=== PATIENT | female | born 1950 | race Two or more races ===

== ENCOUNTER 2023-09-26 09:25 | Outpatient (REF) | payer OTHER, SELFPAY ==
[2023-09-26 12:21] LABS: Vitamin D 25-OH Total 25.1 ng/mL (>30)
== END 2023-09-26 09:26 | disposition home or self-care (01) ==
LOC: HO.HHCL 09:25
PROVIDERS: Visit Provider Internal Medicine
DX: I10 Essential (primary) hypertension (principal)
CPT/HCPCS: 36415; 82306

== ENCOUNTER 2023-10-19 10:30 | Outpatient (REF) | payer OTHER, SELFPAY ==
--- NOTE | ~2023-10-19 | US_ITS ---
EXAMINATION: US THYROID CLINICAL INFORMATION: Enlarged thyroid. COMPARISON: None available. TECHNIQUE: Linear transducer grayscale and color Doppler examination with attention to the region of the thyroid. FINDINGS: SIZE: Measurements of the thyroid lobes and nodules are given in sagittal, anteroposterior and transverse dimensions respectively. Right Thyroid Lobe: 5.3 x 2.4 x 1.8 cm, volume 12.0 mL. Parenchyma: The gland echotexture is homogeneous. Thyroid vascularity is normal. Left Thyroid Lobe: 4.8 x 1.4 x 2.2 cm, volume 7.5 mL. Parenchyma: The gland echotexture is homogeneous. Thyroid vascularity is normal. Isthmus: 0.4 cm in maximum AP dimension. Estimated total number of nodules greater than or equal to 1 cm: 2. Cooler Operator nodules are described as follows: 1. Location: Right superior. Size: 0.6 x 0.5 x 0.3 cm, volume 0.05 mL. Nodule characteristics: Composition: Mixed cystic and solid (1). Echogenicity: Hypoechoic (2). Shape: Not taller than wide (0). Margins: Ill-defined (0). Echogenic Foci: None (0). ACR TI-RADS total points: 3 ACR TI-RADS category: 3 2. Location: Right inferior. Size: 1.0 x 0.8 x 0.7 cm, volume 0.3 mL. Nodule characteristics: Composition: Solid (2). Echogenicity: Hypoechoic (2). Shape: Not taller than wide (0). Margins: Ill-defined (0). Echogenic Foci: None (0). ACR TI-RADS total points: 4 ACR TI-RADS category: 4 3. Location: Right mid. Size: 1.0 x 1.0 x 0.8 cm, volume 0.4 mL. Nodule characteristics: Composition: Solid (2). Echogenicity: Isoechoic (1). Shape: Not taller than wide (0). Margins: Ill-defined (0). Echogenic Foci: None (0). ACR TI-RADS total points: 3 ACR TI-RADS category: 3 4. Location: Left mid. Size: 0.6 x 0.5 x 0.3 cm, volume 0.04 mL. Nodule characteristics: Composition: Mixed cystic and solid (1). Echogenicity: Hypoechoic (2). Shape: Not taller than wide (0). Margins: Ill-defined (0). Echogenic Foci: None (0). ACR TI-RADS total points: 3 ACR TI-RADS category: 3 5. Location: Left inferior. Size: 0.5 x 0.6 x 0.4 cm, volume 0.06 mL. Nodule characteristics: Composition: Solid (2). Echogenicity: Isoechoic (1). Shape: Not taller than wide (0). Margins: Ill-defined (0). Echogenic Foci: None (0). ACR TI-RADS total points: 3 ACR TI-RADS category: 3 NODES: No lymphadenopathy is seen in the tissue surrounding the thyroid gland. US/US thyroid IMPRESSION: 1. Bilateral thyroid nodules are seen, as detailed. Recommend continued thyroid ultrasound surveillance. 2. There is an asymmetric mild goiter, right lobe greater than left. ACR TI-RADS RECOMMENDATION REFERENCE: Ultrasound-guided fine-needle aspiration, followup ultrasound, no further follow up. * TR1 (0 point) and TR2 (2 points): No FNA or follow up. * TR3 (3 points): FNA if more than or equal to 2.5 cm in maximum dimension, followup ultrasound in 1, 3 and 5 years if 1.5 to 2.4 cm in maximum dimension. * TR4 (4-6 points): FNA if more than or equal to 1.5 cm in maximum dimension, followup ultrasound in 1, 2, 3 and 5 years if 1 to 1.4 cm in maximum dimension. * TR5 (more than or equal to 7 points): FNA if more than or equal to 1 cm in maximum dimension, followup ultrasound every year for 5 years if 0.5 to 0.9 cm in maximum dimension. * TR3, TR4 or TR5 nodules that are below the size threshold for followup receive no follow up.
== END 2023-10-19 10:31 | disposition home or self-care (01) ==
LOC: HO.US 10:30
PROVIDERS: PCP Internal Medicine; Visit Provider Internal Medicine
DX: E04.9 Nontoxic goiter, unspecified (principal)
CPT/HCPCS: 76536

== ENCOUNTER 2023-11-04 11:38 | Outpatient (REF) | payer OTHER, SELFPAY ==
[2023-11-04 13:08] LABS: MANUAL DIFF FLAG NO
[2023-11-04 13:30] LABS: Basophils Percent Auto 0.7 % (0-2); Eosinophils Absolute Auto 0.2 X10*3/uL (0.0-0.4); Eosinophils Percent Auto 6.9 % (0-4); Hemoglobin 13.8 g/dl (12.0-16.0); Imm Gran Abs Auto 0.01 X10*3/uL (0.00-0.03); Imm Gran Pct Auto 0.3 % (0.0-0.4); Lymphocytes Absolute Auto 1.4 X10*3/uL (1.2-4.9); Lymphocytes Percent Auto 44.4 % (20-40); Mean Corpuscular HGB Conc 32.1 g/dl (31.0-35.0); Mean Corpuscular Hemoglobin 31.4 pg (27.0-33.0); Mean Corpuscular Volume 97.9 fL (80.0-98.0); Mean Platelet Volume 10.7 fL (9.4-12.3); Monocytes Absolute Auto 0.4 X10*3/uL (0.1-1.2); Monocytes Percent Auto 13.1 % (2-11); Neutrophils Absolute Auto 1.1 x10*3/uL (2.0-8.3); Neutrophils Percent Auto 34.6 % (45-73); Platelet Count 241 X10*3/uL (160-400); Red Blood Count 4.39 X10*6/uL (4.20-5.50); Red Cell Distribution Width 12.1 % (11.0-16.0); White Blood Count 3.1 X10*3/uL (4.8-10.8)
[2023-11-04 14:46] LABS: Alanine Aminotransferase 34 U/L (0-31); Albumin Level 4.5 g/dL (3.5-5.0); Alkaline Phosphatase 147 U/L (39-117); Anion Gap 11 (12-20); Aspartate Amino Transferase 33 U/L (5-31); Bilirubin Direct 0.2 mg/dL (0.0-0.5); Bilirubin Total 0.8 mg/dL (0.0-1.0); Blood Urea Nitrogen 15 mg/dL (9-16); Calcium 10.4 mg/dL (8.4-10.2); Carbon Dioxide 30 mmol/L (22-29); Chloride 105 mmol/L (96-108); Cholesterol 183 mg/dL (<200); Estimated Glomerular Filt Rate > 60; Glucose Random 93 mg/dL (60-115); HDL Cholesterol 58 mg/dL (>40); LDL Cholesterol Calculated 103 mg/dL (<100); Potassium 4.8 mmol/L (3.3-5.1); Sodium 141 mmol/L (135-145); Total Protein 7.6 g/dL (6.5-8.0); Triglycerides 111 mg/dL (<150)
== END 2023-11-04 11:39 | disposition home or self-care (01) ==
LOC: HO.HHCL 11:38
PROVIDERS: Visit Provider Internal Medicine
DX: I10 Essential (primary) hypertension (principal); L63.9 Alopecia areata, unspecified; E04.9 Nontoxic goiter, unspecified
CPT/HCPCS: 36415; 80048; 80061; 80076; 84443; 85025

== ENCOUNTER 2024-07-31 10:31 | Outpatient (REF) | payer OTHER, SELFPAY ==
--- NOTE | ~2024-07-31 | US_ITS ---
EXAMINATION: US THYROID CLINICAL INFORMATION: Nontoxic multinodular goiter. COMPARISON: Ultrasound soft tissue head/neck thyroid dated October 19, 2023. TECHNIQUE: Linear transducer grayscale and color Doppler examination with attention to the region of the thyroid. FINDINGS: SIZE: Measurements of the thyroid lobes and nodules are given in sagittal, anteroposterior and transverse dimensions respectively. Right Thyroid Lobe: 5.0 x 2.3 x 2.1 cm, volume 12.8 mL. Previously 5.3 x 2.4 x 1.8 cm, volume 12.0 mL. Parenchyma: The gland echotexture is homogeneous. Thyroid vascularity is normal. Left Thyroid Lobe: 4.5 x 1.6 x 2.0 cm, volume 7.5 mL. Previously 4.8 x 1.4 x 2.2 cm, volume 7.5 mL. Parenchyma: The gland echotexture is homogeneous. Thyroid vascularity is normal. Isthmus: 0.3 cm in maximum AP dimension. Previously 0.4 cm. Estimated total number of nodules greater than or equal to 1 cm: 0. Switcher nodules are described as follows: 1. Location: Right superior. Size: 0.6 x 0.3 x 0.5 cm, volume 0.1 mL. Previously: 0.6 x 0.5 x 0.3 cm, volume 0.04 mL. Nodule characteristics: Composition: Mixed cystic and solid (1). Echogenicity: Hypoechoic (2). Shape: Not taller than wide (0). Margins: Smooth (0). Echogenic Foci: None (0). ACR TI-RADS total points: 3 Previous: 3 ACR TI-RADS category: 3 Previous: 3 Significant change in size (>/= 20% in 2 dimensions and minimal increase of 2 mm or 50% or greater increase in volume): No Change in features: No Change in ACR TI-RADS risk category: No 2. Location: Right inferior. Size: 0.9 x 0.7 x 0.6 cm, volume 0.2 mL. Previously: 1.0 x 0.8 x 0.7 cm, volume 0.3 mL. (By my current measurements, this nodule was also taller than wide on the prior.) Nodule characteristics: Composition: Solid (2). Echogenicity: Hypoechoic (2). Shape: Taller than wide (3). Margins: Smooth (0). Echogenic Foci: None (0). ACR TI-RADS total points: 7 Previous: 7 ACR TI-RADS category: 5 Previous: 5 Significant change in size (>/= 20% in 2 dimensions and minimal increase of 2 mm or 50% or greater increase in volume): No Change in features: No Change in ACR TI-RADS risk category: No 3. Location: Right mid. Size: 0.8 x 0.7 x 0.7 cm, volume 0.2 mL. Previously: 1.0 x 1.0 x 0.8 cm, volume 0.4 mL. Nodule characteristics: This structure is felt more likely to represent heterogeneous but otherwise normal thyroid tissue rather than a true nodule. Composition: Solid (2). Echogenicity: Isoechoic (1). Shape: Not taller than wide (0). Margins: Ill-defined (0). Echogenic Foci: None (0). ACR TI-RADS total points: 3 Previous: 3 ACR TI-RADS category: 3 Previous: 3 Significant change in size (>/= 20% in 2 dimensions and minimal increase of 2 mm or 50% or greater increase in volume): No Change in features: No Change in ACR TI-RADS risk category: No 4. Location: Left mid. Size: 0.6 x 0.4 x 0.5 cm, volume 0.1 mL. Previously: 0.6 x 0.5 x 0.3 cm, volume 0.04 mL. Nodule characteristics: Composition: Mixed cystic and solid (1). Echogenicity: Hypoechoic (2). Shape: Not taller than wide (0). Margins: Ill-defined (0). Echogenic Foci: None (0). ACR TI-RADS total points: 3 Previous: 3 ACR TI-RADS category: 3 Previous: 3 Significant change in size (>/= 20% in 2 dimensions and minimal increase of 2 mm or 50% or greater increase in volume): No Change in features: No Change in ACR TI-RADS risk category: No 5. Location: Left inferior. Size: 0.5 x 0.6 x 0.4 cm, volume 0.06 mL. Previously: 0.5 x 0.6 x 0.4 cm, volume 0.06 mL. (This nodule was also hypoechoic on the prior.) Nodule characteristics: Composition: Solid/almost completely solid (2). Echogenicity: Hypoechoic (2). Shape: Not taller than wide (0). Margins: Smooth (0). Echogenic Foci: None (0). ACR TI-RADS total points: 4 Previous: 4 ACR TI-RADS category: 4 Previous: 4 Significant change in size (>/= 20% in 2 dimensions and minimal increase of 2 mm or 50% or greater increase in volume): No Change in features: No Change in ACR TI-RADS risk category: No NODES: No lymphadenopathy is seen in the tissue surrounding the thyroid gland. US/US thyroid IMPRESSION: Bilateral thyroid nodules as detailed above. Follow-up ultrasound in 1 year is indicated, per ACR recommendation, with particular attention to nodule #2. ACR TI-RADS RECOMMENDATION REFERENCE: Ultrasound-guided fine-needle aspiration, follow up ultrasound, no further followup. * TR1 (0 point) and TR2 (2 points): No FNA or followup * TR3 (3 points): FNA if more than or equal to 2.5 cm in maximum dimension, follow up ultrasound in 1, 3 and 5 years if 1.5 to 2.4 cm in maximum dimension. * TR4 (4-6 points): FNA if more than or equal to 1.5 cm in maximum dimension, follow up ultrasound in 1, 2, 3 and 5 years if 1 to 1.4 cm in maximum dimension. * TR5 (more than or equal to 7 points): FNA if more than or equal to 1 cm in maximum dimension, follow up ultrasound every year for 5 years if 0.5 to 0.9 cm in maximum dimension. * TR3, TR4 or TR5 nodules that are below the size threshold for follow up receive no followup. Electronically signed by: Jonathan Templeton MD 08/03/2024 10:05 AM [facility]
[2024-07-31 18:39] LABS: Gamma Glutamyl Transpeptidase 73 U/L (7-33)
[2024-08-04 14:59] LABS: Alkaline Phosphatase Bone 28.4 mcg/L (5.6-29.0)
== END 2024-07-31 10:32 | disposition home or self-care (01) ==
LOC: HO.US 10:31
PROVIDERS: PCP Internal Medicine; Visit Provider Internal Medicine Endocrinology, Diabetes & Metabolism
DX: R74.8 Abnormal levels of other serum enzymes (principal)
CPT/HCPCS: 36415; 76536; 82977; 84075

== ENCOUNTER 2024-07-31 11:45 | Outpatient (REF) | payer OTHER, SELFPAY | END 2024-07-31 11:46 | disposition home or self-care (01) | LOC: HO.LAB 11:45 | PROVIDERS: PCP Internal Medicine; Visit Provider Internal Medicine Endocrinology, Diabetes & Metabolism | DX: Z13.89 Encounter for screening for other disorder (principal) ==

== ENCOUNTER 2024-09-04 09:17 | Outpatient (AMB) | payer OTHER, SELFPAY ==
[2024-09-04 09:28] VITALS: BP 153/78; PULSE 71; BMI 24.0
--- NOTE | 2024-09-04 09:28 | MHC.OFFVIS ---
Vital Signs 09/04/24 09:28 Height 4 ft 11 in Weight 119 lb BMI 24.0 BP 153/78 H Blood Pressure Location Rt brachial Position Sitting Pulse 71 Intake Visit Reasons: Hemorrhoids Intake Note: Patient referred by pcp Dr. Boyce for external hemorrhoids. Reports she has tried HC 2.5% cr. Soaks in bathtub. Patient c/o: at times bleeding, difficulty when sitting. Seasonal Recruiter Required: Yes Seasonal Recruiter Name: Araceli TavaresChristine CON Accompanied by: spouse Alek Can Allergies No Known Allergies Allergy (Verified 09/04/24 09:30) HPI Comments Details: Patient was a longstanding history of symptomatic hemorrhoids. Over the last several months time, these have markedly increased. She complains of pain, swelling, occasional bleeding. Patient had colonoscopy roughly 6 years ago which she says was otherwise within normal limits. She is not noticed any change in the caliber of her stool. She is chronically constipated and does a variety of measures to try to combat this. Patient denies any anal receptive practice. Chart was reviewed and patient evaluated [facility] Medical History (Updated 09/04/24 @ 09:33 by CON Garcia) Uterine prolapse Social History (Updated 09/04/24 @ 09:34 by CON Garcia) Alcohol intake: current Alcohol intake frequency: holidays/special occasions only Patient Tobacco Use Status: Current everyday Tobacco user Cigarettes Per Day: 3 Physical Exam Vital Signs: Last Vital Signs Pulse 71 09/04/24 09:28 BP 153/78 H 09/04/24 09:28 BMI result Body Mass Index 24.0 Chest Other: Chest breath sounds bilaterally, HS 1 in 2 GI Other: Abdomen is soft, benign. Rectal exam demonstrates very significant internal and external hemorrhoids. These were quite large, edematous, and friable. Because of marked tenderness, rectal exam was deferred. Assessment & Plan Assessment & Plan (1) HTN (hypertension): Code(s): I10 - Essential (primary) hypertension Plan: Therapeutic options were reviewed with the patient included continue conservative therapy with stool softeners and avoiding constipation and topical agents or excision. Because of the chronicity and progression of her symptoms, she would like to undergo excision of these. Risks, benefits, and alternatives of hemorrhoidectomy reviewed with the patient and included but not limited to bleeding, infection, recurrence, numbness, pain, scarring, incontinence and the patient wished to proceed. She will be given a bowel prep day prior and will see me postprocedure in 2 weeks' time for follow-up. All questions answered. Arrangements were made for this Coding Level of Care Code New Pt Level 5 (10891) Diagnoses HTN (hypertension) I10
== END 2024-09-04 09:47 | disposition home or self-care (01) ==
PROVIDERS: PCP Internal Medicine; Referring Provider Internal Medicine; Visit Provider Surgery
DX: K64.8 Other hemorrhoids (principal)
CPT/HCPCS: 99204

== ENCOUNTER → 2024-09-04 09:17 | Outpatient (BNVA) | payer OTHER, SELFPAY | PROVIDERS: PCP Internal Medicine; Referring Provider Internal Medicine; Visit Provider Surgery | DX: I10 Essential (primary) hypertension (principal); K59.00 Constipation, unspecified; K64.4 Residual hemorrhoidal skin tags | CPT/HCPCS: 99202 ==

== ENCOUNTER 2024-09-06 10:04 | Outpatient (REF) | payer OTHER, SELFPAY ==
--- NOTE | ~2024-09-06 | MM_ITS ---
EXAMINATION: Dual-Energy X-ray Absorptiometry - Bone Density Study HISTORY: Estrogen deficiency TECHNIQUE: [employer] Dual energy absorptiometry (DEXA) of the lumbar spine, total left hip, and femoral neck was performed. COMPARISON: There are no prior studies for comparison. FINDINGS: The bone mineral density of the lumbar spine is 0.889 with a T-score of -2.6, and a Z-score of -0.5. The bone mineral density of the left total hip is 0.694 with a T-score of -2.5, and a Z-score of -0.5. The bone mineral density of the left femoral neck is 0.684 with a T-score of -2.5, and a Z-score of -0.4. MM/XR DEXA axial skeleton IMPRESSION: Based on bone mineral density, and according to World Health Organization (WHO) criteria, the diagnosis is consistent with osteoporosis. All bone density values are in grams per centimeter squared. At this facility, the least significant change in BMD with 95% confidence is 0.022 at the lumbar spine, 0.027 at the hip, and 0.023 at the distal 1/3 radius. Electronically signed by: Popeye Gomez MD 09/10/2024 09:39 AM [facility]
== END 2024-09-06 10:05 | disposition home or self-care (01) ==
LOC: HO.MAMMO 10:04
PROVIDERS: PCP Internal Medicine; Visit Provider Internal Medicine Endocrinology, Diabetes & Metabolism
DX: N95.9 Unspecified menopausal and perimenopausal disorder (principal)
CPT/HCPCS: 77080

== ENCOUNTER → 2024-09-06 10:30 | Outpatient (BNV) | payer OTHER, SELFPAY | PROVIDERS: PCP Internal Medicine; Visit Provider Radiology Diagnostic Radiology | DX: M81.0 Age-related osteoporosis without current pathological fracture (principal) | CPT/HCPCS: 77080 ==

== ENCOUNTER 2024-10-11 09:42 | Day surgery (SDC) | payer OTHER, SELFPAY ==
[2024-10-09 11:35] VITALS: BMI 24.0
--- NOTE | 2024-10-10 09:58 | MHC.SHP ---
Pre-Procedural Eval Section A - 24 Hr Update-Section A only Date of Service: 10/11/24 The patient is an INPATIENT: No Changes since office visit: No Cold of Flu in the past 2 weeks, No New Medical Problems, No Changes in Medication and No Patient answered all questions Section B - Complete if H&P > 30 days Chief Complaint: Unspecified hemorrhoids Allergies: Allergies Allergy/AdvReac Type Severity Reaction Status Date / Time No Known Allergies Allergy Verified 09/04/24 09:30 Review of Systems Sugical H&P ROS: Negative: Constitution, Cardiovascular, Respiratory, Neurological, Psychiatric, Hem-Onc, Allergic/Immunologic, Gastrointestinal, Genitourinary, Musculoskeletal, Integumentary, Endocrine and Eyes/Ears/Nose/Throat Exam Surgical H&P Exam: Normal: HEENT, Normal: Heart, Normal: Lungs, Normal: Extremities, Normal: Abdomen, Normal: Skin and Normal: Neurological Plan I have reviewed the history and physical and performed a pertinent physical examination on my patient. No changes have occurred unless specified. Time Spent With Patient Time: Total time managing care of this patient today ____ minutes.
--- NOTE | 2024-10-10 10:07 | P.CONAN_ITS ---
Documented by User: Lu Arthur NP 10/10/24 10:09 HPI - Anesthesia Eval Consult details Narrative: 74yo F for Hemorrhoidectomy PMFSH Past Medical History Medical History Encounter for screening mammogram for malignant neoplasm of breast Constipation Vitamin D deficiency Non-toxic multinodular goiter Elevated alkaline phosphatase level Colon cancer screening Peptic ulcer Hemorrhoids Enlarged thyroid Primary hypertension Alopecia areata Uterine prolapse Social History Social History Are you a primary director career services to a significant other at home: No Do you presently have visiting nurse or other home services: No Alcohol intake: current Alcohol intake frequency: holidays/special occasions only Patient Tobacco Use Status: Current everyday Tobacco user Tobacco use type: Cigarette Cigarettes Per Day: 3 Smoked in Last 30 Days: Yes Patient Interested in Nicotine Replacement: No Have you been hit, kicked, punched, or otherwise hurt by someone within the past year? If so, by whom?: No Are you DNR?: No Advance Directives: No Advance Directives Information Provided: Yes Recently lost weight without trying: No Nutrition Risks: No Nutritional Risk Meds Allergies Allergy/AdvReac Type Severity Reaction Status Date / Time No Known Allergies Allergy Verified 10/11/24 10:38 Active Medications: Current Medications Cefazolin Sodium/Dextrose (Ancef) 2 gm in 50 mls @ 100 mls/hr IV PREOP ONE Stop: 10/10/24 10:26 Home Medications ?Medication ?Instructions ?Recorded ?Confirmed ?Last Taken ?Type amlodipine 10 mg tablet 10 mg PO DAILY 09/04/24 10/11/24 10/11/24 History ammonium lactate 12 % topical cream 1 appl topical BID 09/04/24 10/11/24 Unknown History atorvastatin 40 mg tablet 40 mg PO DAILY 09/04/24 10/11/24 Unknown History betamethasone, augmented 0.05 % topical 09/04/24 09/04/24 Unknown History topical ointment cholecalciferol (vitamin D3) 50 50 mcg PO DAILY 09/04/24 10/11/24 Unknown History mcg (2,000 unit) capsule (Vitamin D3) docusate sodium 100 mg capsule 100 mg PO BID 09/04/24 10/11/24 Unknown History ergocalciferol (vitamin D2) 1,250 1,250 mcg PO QWEEK 09/04/24 10/11/24 Unknown History mcg (50,000 unit) capsule famotidine 20 mg tablet 20 mg PO BID 09/04/24 10/11/24 Unknown History hydrocortisone 2.5 % topical cream topical 09/04/24 09/04/24 Unknown History with perineal applicator triamcinolone acetonide 0.1 % topical 09/04/24 09/04/24 Unknown History topical ointment Exam Height,Weight and Vital Signs: Height 4 ft 11 in Weight 53.977 kg Assessment and Plan Assessment Anesthesia Assessment: Chart Reviewed Documented by User: Nilam Austin MD 10/11/24 10:57 [facility] Past Medical History Medical History Encounter for screening mammogram for malignant neoplasm of breast Constipation Vitamin D deficiency Non-toxic multinodular goiter Elevated alkaline phosphatase level Colon cancer screening Peptic ulcer Hemorrhoids Enlarged thyroid Primary hypertension Alopecia areata Uterine prolapse Surgical History History of Problems with Anesthesia: No Social History Social History Are you a primary director career services to a significant other at home: No Do you presently have visiting nurse or other home services: No Alcohol intake: current Alcohol intake frequency: holidays/special occasions only Patient Tobacco Use Status: Current everyday Tobacco user Tobacco use type: Cigarette Cigarettes Per Day: 3 Smoked in Last 30 Days: Yes Patient Interested in Nicotine Replacement: No Have you been hit, kicked, punched, or otherwise hurt by someone within the past year? If so, by whom?: No Are you DNR?: No Advance Directives: No Advance Directives Information Provided: Yes Recently lost weight without trying: No Nutrition Risks: No Nutritional Risk Meds Allergies Allergy/AdvReac Type Severity Reaction Status Date / Time No Known Allergies Allergy Verified 10/11/24 10:38 Home Medications ?Medication ?Instructions ?Recorded ?Confirmed ?Last Taken ?Type amlodipine 10 mg tablet 10 mg PO DAILY 09/04/24 10/11/24 10/11/24 History ammonium lactate 12 % topical cream 1 appl topical BID 09/04/24 10/11/24 Unknown History atorvastatin 40 mg tablet 40 mg PO DAILY 09/04/24 10/11/24 Unknown History betamethasone, augmented 0.05 % topical 09/04/24 09/04/24 Unknown History topical ointment cholecalciferol (vitamin D3) 50 50 mcg PO DAILY 09/04/24 10/11/24 Unknown History mcg (2,000 unit) capsule (Vitamin D3) docusate sodium 100 mg capsule 100 mg PO BID 09/04/24 10/11/24 Unknown History ergocalciferol (vitamin D2) 1,250 1,250 mcg PO QWEEK 09/04/24 10/11/24 Unknown History mcg (50,000 unit) capsule famotidine 20 mg tablet 20 mg PO BID 09/04/24 10/11/24 Unknown History hydrocortisone 2.5 % topical cream topical 09/04/24 09/04/24 Unknown History with perineal applicator triamcinolone acetonide 0.1 % topical 09/04/24 09/04/24 Unknown History topical ointment Exam Airway Mallampati Class: II TM Dist: >3cm Neck ROM: Limited Loose/Missing/Broken Teeth: No Heart: RRR Lungs: CTA Assessment and Plan Assessment Anesthesia Assessment: Anesthesia Plan Discussed Final Anesthetic Review History of Problems with Anesthesia: No NPO: Yes ASA Class: II Final Preanesthetic Review: Meds/Allgs Chart Reviewed, Consent Obtained/Reviewed and Anes Risks/Benef Reviewed Patient Risk: Low Procedure Risk: Low Anesthetic Plan Anesthetic Plan: GA Disposition: Standard PACU
[2024-10-11] MEDS: Lactated Ringers 1,000 ML 100 ML IVCONT (10:03)
[2024-10-11 10:11] VITALS: BP 138/88; PULSE 71; RESP 18; TEMP 36.7; O2SAT 99
--- OUTSIDE RECORDS SUMMARY | 2024-10-11 10:14 | XMS_ITS | Encounter Summary ---
Author Organization [employer] Address [address] [place] [address] Care Team Providers Care Meat Pickler Name Role Phone Lalita Owens MD Primary Care Provide r Encounter Details Date Type Department Care Team (Latest Contact Info) Description 10/02/2024 Travel Social History Tobacco Use Types Packs/Day Years Used Date Smoking Tobacco: Every Day Cigarettes Passive Smoke Exposure: Current Smokeless Tobacco: Never Comments:2 cig a day Alcohol Use Standard Drinks/Week Comments Not Currently 0 (1 standard drink = 0.6 oz pur e alcohol) Depression Answer Date Recorded Patient Health Questionnaire-9 Score 7 11/01/2023 Patient Health Questionnaire-9 Score 7 11/01/2023 Last PHQ-9: Questionnaire Data Not on file 0 11/01/2023 Housing Stability Answer Date Recorded What is your housing situation today? I have roelandres kirby 10/25/[address] you li ve. Do you have problems with any of the following? None of the above 10/25/2023 Food Insecurity Answer Date Recorded Within the past 12 months, y ou worried that your food would run out before you got money to buy more: Never True 10/25/2023 Within the past 12 months,th e food you bought just didn't last and you didn't have enough money to get more: Never True Transportation Answer Date Recorded In the past 12 months, has l ack of transportation kept you from medical appts, meetings, work or from getting things needed for daily living? Yes, it has kept me from medical appointments or getting medications.;Yes, it has kept me from non-medical meetings, work, or getting things that I need 10/25/2023 Utilities Answer Date Recorded In the past 12 months, has t he electric, gas, oil or water company threatened to shut off services in your home? No 10/25/2023 Depression Answer Date Recorded Patient Health Questionnaire-2 Score 2 11/01/2023 Comments Unknown Sex and Gender Information Value Date Recorded Sex Assigned at Female 08/04/2023 10:55 AM EST Legal Sex Female 10:53 AM EST Gender Identity Female 08/04/2023 10:55 AM EST Sexual Orientation Straight 08/04/2023 10 :55 AM EST documented as of this encounter Plan of Treatment Upcoming Encounters Date Type Department Care Team (Late st Contact Info) Description 10/30/2024 1:30 PM EST Clinical Support [facility] [address] [place] [id number] [place] [address] 11/23/2024 9:30 AM EDT Office Visit [facility] [address] [place] [address] Lalita Owens MD [address] [place] [address] documented as of this encounter Visit Diagnoses Not on filedocumented in this encounter Additional Health Concerns Assessment Noted Time PHQ-9 Depression Total Score: 7 11/01/19 10:28 AM EST documented as of this encounter Care Teams Meat Pickler Relationship Specialty Start Date End Date Lalita Owens MD [address] [place] [id number] PCP - General Internal Medicine 09/23/23 documented as of this encounter"
--- OUTSIDE RECORDS SUMMARY | 2024-10-11 10:14 | XMS_ITS | Encounter Summary ---
Author Organization [employer] Address [address] [place] [address] [facility] [place] [address] Care Team Providers Care Electrical Prospector Name Role Phone Lalita Owens MD Primary Care Provide r Reason for Visit * Consultation (Routine) - Authorized Specialty Diagnoses / Procedures Referred By Stephanie friedman Referred To Contact Nutrition Diagnoses Primary hypertension Body mass index (BMI) 23.0-23.9, adult Lalita Owens MD [address] [place] [address] Phone: tel: fax: Referral ID Status Reason Start Date Expiration Date Visits Requested Visits Authorized [id number] Authorized Specialty Services Required 4 08/10/2025 1 1 Encounter Details Date Type Department Care Team ([facility] st Contact Info) Description 10/02/2024 1:00 PM EST Nutrition [facility] DIABETES/NUTRITION [address] [place] [address] [place] [address] Primary hypertension; Body mass index (BMI) 23.0-23.9, adult Social History Tobacco Use Types Packs/Day Years [...] is your housing situation today? I have roel kirby 10/25/[address] you [...] AM EST documented as of this encounter Last Filed Vital Signs Vital Sign Reading Time Taken Comments Blood Pressure - - Pulse - - Temperature - - Respiratory Rate - - Oxygen Saturation - - Inhaled Oxygen Concentration - - Weight 52.9 kg (116 lb 9.6 oz) 10/04/2024 8:58 A M EST Height 149.9 cm (4' 11 ) 10/04/2024 8:58 AM EST Body Mass Index 23.55 10/04/2024 8:58 AM EST documented in this encounter Progress Notes * Diana Brothers, RD - 10/02/2024 1:00 PM EST In Person Visit Medical Diagnosis: I10 Primary hypertension Z68.23 Body mass index (BMI) 23.0-23.9, adult Anthropometrics: Ht:4' 11 (1.499 m), Wt:116 lb 9.6 oz (52.9 kg), BMI: Body mass index is 23.55 kg/m??. Assessment: Patient (Pt) accepted nutrition education assessment appointment with RD. RD took 24 hour recall/ typical daily intake from Pt. Intake revealed Pt's diet is very high in refine carbohydrates, fried foods, junk foods, salty foods, and low in: protein, healthy fats, fiber, sources of calcium, fresh and cooked vegetables, fruit and whole grains. Today, Pt only did the first half of First appointment. Once the second half of First appointment is finished, RD will fill in nutrition diagnosis, nutrition Intervention, goals, Tailored made meal plan, monitoring and evaluation will be put into Pt's chart here. Thus, all is to be followed by Pt with their agreement. The second half of First nutrition education assessment appointment is scheduled in the first week of October 2024. Until then, RD made some suggestions to Pt and Pt agreed to make these changes. They are: Use real butter instead of margarine Have bread instead of crackers Have beef once per week (RD showed the size/ amount. RD also expressed that this is not the O.K. togo to fast food places. RD suggested to by hamburger and cook it at home.) Food Allergies: Peanuts and any foods made with peanuts Exercise: Pt walk regularly, daily- 2 to 5 miles a day. Food Intolerance: Didn't say Food Preferences: Breakfast sausages, spiced ham, Bahamian cheese, mayonnaise, lettuce, tomato, Portuguese bread, potatochips, Cheese Doodles, yellow and white rice, sweet plantain, chicken and chicken wings, beans, pork, spaghetti, turkey, tuna, noodles, crackers, orange juice, apple juice, perfecto gerber, herb teas, brown sugar, margarine, kiwi, strawberries, gelacio, grapes, watermelon Food Dislikes: Soft eggs Frequency of Eating Out/ Restaurant: Not a norm Who Cooks?: Patient and partner How much caffeine?: coffee 1-2 cups /day How much sugary beverages?: Juice, 1-2 cups/ day Diet History: Breakfast: Sausage: 4-5 Cracker:6-8 Margarine: 2 tablespoons Coffee: 3/4 cup Canned milk: 1 oz. Snack: none Lunch: Potato chips: snack size bag Water: 1+ cups Or Juice: 3/4 cup Snack: None Water: 1/2 cup Dinner: Rice: 1/2 cup Sweet plantains: 1/3 cup Fried chicken wings: 3-4 Juice: 3/4 cup Snack: Lay's potato chips: snack size bag Maybe: water: 1 cup or juice Nutrition Diagnosis: 1st half of First appointment was done today. When the 2nd half of First appointment is finished/ done, this area will be filled in. Nutrition Intervention: 1st half of First appointment was done today. When the 2nd half of First appointment is finished/ done, this area will be filled in. Monitoring and Evaluation: 1st half of First appointment was done today. When the 2nd half of First appointment is finished/ done, this area will be filled in. Provider: Diana Brothers RD, [place] documented in this encounter Plan of Treatment Upcoming Encounters Date Type Department Care Team (Late st Contact Info) Description 10/30/2024 1:30 PM EST Clinical Support [facility] DIABETES/NUTRITION [address] [place] [id number] [place] [address] 11/23/2024 9:30 AM EDT Office Visit [facility] MEDICINE [address] [place] [address] Lalita Owens MD [address] [place] [address] documented as of this encounter Visit Diagnoses Diagnosis Primary hypertension Unspecified essential hypertension Body mass index (BMI) 23.0-23.9, adult documented in this encounter Additional Health Concerns Assessment Noted Time PHQ-9 Depression Total Score: 7 11/01/19 24 10:28 AM EST documented as of this encounter Care Teams Electrical Prospector Relationship Specialty Start Date End Date Lalita Owens MD [address] [place] [id number] PCP - General Internal Medicine 09/23/23 documented as of this encounter
--- OUTSIDE RECORDS SUMMARY | 2024-10-11 10:14 | XMS_ITS | Clinical Summary ---
Author Organization [employer] Address [address] [place] [address] 7 [place] [address] Care Team Providers Care Typesetter Perforator Operator Name Role Phone Lalita Owens MD Primary Care Provide r Allergies Active Allergy Reactions Criticality Noted Date Comments Peanut-Containing Drug Products 08/30 Penicillins 11/01/2023 Medications ergocalciferol (Vitamin D2) 1.25 MG (25532 UT) capsuleIndicatio ns:Primary hypertension TAKE 1 CAPSULE BY MOUTH ONCE A WEEK 4 capsule 2 01/09/20 24 Active betamethasone, augmented, (Diprolene) 0.05 % ointmentIndicati ons:Alopecia areata Apply topically 2 times daily. 15 g 02/17/20 24 Active lidocaine (Lidoderm) 5 % patchIndications :Musculoskeletal chest pain Apply 1 patch topically Once per day. Remove & discard patch within 12 hours or as directed by MD. 30 patch 1 05/02/20 24 Active dextran 70-hypromellose (artificial tears) 0.1-0.3 % ophthalmic solutionIndicati ons:Dry eyes, bilateral Administer 1 drop into both eyes if needed in the morning, at noon, and at bedtime for dry eyes. 15 mL 6 07/09/20 24 025 Active hydrocortisone (Anusol-HC) 2.5 % rectal creamIndications :Hemorrhoids, unspecified hemorrhoid type INSERT RECTALLY TWICE DAILY DIRECTED 30 g 1 07/11/20 24 Active ammonium lactate (Amlactin) 12 % creamIndications :Alopecia areata APPLY TOPICALLY TO THE AFFECTED AREA(S) EVERY DAY NEEDED FOR DRY SKIN 385 g 1 07/17/20 24 Active hydrocortisone (Anusol-HC) 2.5 % rectal creamIndications :Hemorrhoids, unspecified hemorrhoid type Insert into the rectum 2 times daily. 28 g 3 08/10/20 24 Active famotidine (Pepcid) 20 MG tabletIndication s:Peptic ulcer TAKE 1 TABLET BY MOUTH TWICE DAILY 60 tablet 10/09/19 25 Active atorvastatin (Lipitor) 40 MG tabletIndication s:Primary hypertension TAKE 1 TABLET BY MOUTH EVERY DAY IN THE MORNING 30 tablet 10/09/19 25 Active amLODIPine (Norvasc) 10 MG tabletIndication s:Primary hypertension TAKE 1 TABLET BY MOUTH EVERY DAY IN THE MORNING 30 tablet 10/09/19 25 Active triamcinolone (Kenalog) 0.1 % ointmentIndicati ons:Hand eczema APPLY TOPICALLY TO THE AFFECTED AREA(S) TWICE DAILY DIRECTED 30 g 11 10/09/19 25 Active atorvastatin (Lipitor) 40 MG tabletIndication s:Primary hypertension Take 1 tablet (40 mg) by mouth in the morning. 30 tablet 09/23/19 24 025 Discontinued famotidine (Pepcid) 20 MG tabletIndication s:Peptic ulcer Take 1 tablet (20 mg) by mouth 2 times daily. 60 tablet 09/23/19 24 025 Discontinued amLODIPine (Norvasc) 10 MG tabletIndication s:Primary hypertension Take 1 tablet (10 mg) by mouth in the morning. 30 tablet 09/23/19 24 025 Discontinued triamcinolone (Kenalog) 0.1 % ointmentIndicati ons:Hand eczema Apply topically 2 times daily. 30 g 1 12/27/19 24 025 Discontinued Active Problems Problem Noted Date Diagnosed Date Other constipation 08/10/2024 Assessment & Plan (08/15/2024 2:00 PM EST): Increase water and fiber to diet Try walks every day I will put her on colace Body mass index (BMI) 23.0-23.9, adult Encounter for screening mamm ogram for malignant neoplasm of breast 08/10/2024 Elevated alkaline phosphatase level 04/05/2024 Overview (05/02/2024): Last Assessment & Plan: She was found to have elevated alkaline phosphatase. This can be due to vitamin D deficiency. The patient can potentially have hyperparathyroidism. This can be secondary hyperparathyroidism. However her serum calcium levels was 10.4 with albumin of 4.5 corrects to 10.0. PTH level should be checked for evaluation of primary hyperparathyroidism. The patient states that she was told that she was close to having osteoporosis unclear what this means she may have had osteopenia.I wanted to get a DXA scan but I feel is best to hold off and check the PTH first because if the PTH is elevated she should have DXA scan with forearm measurement. Nontoxic multinodular goiter 04/05/2024 Overview (05/02/2024): Last Assessment & Plan: The patient has 5 subcentimeter nodules bilaterally. These are too small to biopsy. She should repeat her ultrasound again by 10/19/2024 at [facility]. Assessment & Plan (08/15/2024 2:01 PM EST): Continue to follow with endocrinology Vitamin D deficiency 04/05/2024 Overview (05/02/2024): Last Assessment & Plan: The patient was prescribed ergocalciferol 50,000 units weekly by her primary care physician. Colon cancer screening 11/01/2023 Alopecia areata 09/23/2023 Assessment & Plan (11/01/2023 12:05 PM EST): Do not miss dermatology appointment Primary hypertension 09/23/2023 Assessment & Plan (11/01/2023 12:05 PM EST): Maintenance: BMP: ordered Lipid Panel: ordered ASCVD Risk: Calculate pending updated labs - Aerobic exercise to reduce BP. Initial goal of 30 min walk 3-5x/week. Increase as tolerated. - low-sodium diet (goal: <2g/day) and heart healthy diet such as DASH to reduce BP and prevent ASCVD. - Home BP monitoring 1-2 x day with goal of <140/90. - Seek immediate medical attention for chest pain, palpitations, SOB, syncope, or sudden changes in mental status. - Do not change or discontinue current prescriptions without first consulting health care provider Assessment & Plan (09/23/2023 3:11 PM EST): I advise low Na diet I send her blood pressure medication to pharmacy I advise to monitor her BP at home Enlarged thyroid 09/23/2023 Hemorrhoids 09/23/2023 Peptic ulcer 09/23/2023 Encounters Date Type Department Care Team Description 10/09/[address] [facility] [address] [place] [phone] Lalita Owens MD Peptic ulcer; Primary hypertension; Hand eczema 10/02/2024 1:[address] [facility] [address] [place] [phone] Primary hypertension; Body mass index (BMI) 23.0-23.9, adult 10/02/2024 Travel 09/06/2024 Orders Only [facility] External Provider, [facility] 08/23/[address] [facility] [address] [place] [phone] Lalita Owens MD 08/10/2024 1:45 PM EST Office Visit [facility] [address] [place] [phone] Reta Yu MD Alopecia areata (Primary Dx) 08/10/2024 11:00 AM EST Office Visit [facility] [address] [place] [phone] Lalita Owens MD Hemorrhoids, unspecified hemorrhoid type (Primary Dx); Other constipation; Primary hypertension; Body mass index (BMI) 23.0-23.9, adult; Encounter for screening mammogram for malignant neoplasm of breast; Nontoxic multinodular goiter; Encounter for immunization 08/10/[address] [facility] [address] [place] [phone] Raquel Beyer MA Durable Medical Equipment 08/10/2024 Travel 07/31/2024 Orders Only [facility] External Provider, [facility] 07/16/[address] [facility] [address] [place] [address] Lalita Owens MD Alopecia areata from Last 3 Months Immunizations Name Administration Dates Next Due Influenza injectable quadrivalent preservative f ree 08/04/2023 Influenza, High Dose Seasonal, Preservative Free 06/08/2024 Pfizer Covid-19 Vaccine 12+ 08/04/2023 Pneumococcal Conjugate PCV 20 08/10/2024 RSV Bivalent 11/01/2023 Social History Tobacco Use Types Packs/Day Years Used Date Smoking Tobacco: Every Day Cigarettes Passive Smoke Exposure: Current Smokeless Tobacco: Never Tobacco Cessation:Ready to Q uit: Not Asked; Counseling Given: Not Answered Comments:2 cig a day Alcohol Use Standard [...] Orientation Straight 08/04/2023 10 :55 AM EST Last Filed Vital Signs Vital Sign Reading Time Taken Comments Blood Pressure 135/75 08/10/2024 1:50 PM EST Pulse 71 08/10/2024 1:50 PM EST Temperature 36.2 ??C (97.1 ??F) 08/10/2024 1:50 PM ES T Respiratory Rate 17 08/10/2024 1:50 PM EST Oxygen Saturation 99% 08/10/2024 1:50 PM EST Inhaled Oxygen Concentration - - Weight 52.9 kg (116 lb 9.6 oz) 10/04/2024 8:58 A M EST Height 149.9 cm (4' 11 ) 10/04/2024 8:58 AM EST Body Mass Index 23.55 10/04/2024 8:58 AM EST Plan of Treatment Upcoming Encounters Date Type Department Care Team (Late st Contact Info) Description 10/30/2024 1:30 PM EST Clinical Support [facility] [address] [place] [phone] [place] [address] 11/23/2024 9:30 AM EDT Office Visit [facility] [address] [place] [phone] Lalita Owens MD [address] [place] [address] Health Maintenance Due Date Last Done Comments CT Colonography 1950 Colonoscopy 1950 FIT 1950 FOBT 1950 Sigmoidoscopy 1950 Hepatitis C Screening 1967 DTaP/Tdap/Td Vaccines (1 - Tdap) 1968 Zoster Vaccines (1 of 2) 1999 COVID-19 Vaccine (2 - 2023-2 5 season) 2024 08/04/2023 SDOH Screening 10/25/2024 10/25/2023 Depression Screening 10/31/2024 11/01/2023, 11/01/2023 Alcohol/Substance Use Screening 08/10/2025 08/10/2024 Tobacco Screening 08/10/2025 08/10/2024 Colorectal Cancer Screening 11/28/2026 FIT DNA/Cologuard 11/28/2026 11/29/2023 Lipid Panel 11/03/2028 11/04/2023 RSV Patients and Patients Aged 60 years or older Completed 11/01/2023 Influenza Vaccine Completed 06/08/2024, 08/04/2023 Pneumococcal Vaccine: 50+ Years Completed 08/10/2024 HIB Vaccines Aged Out No longer eligi ble based on patient's age to complete this topic HPV Vaccines Aged Out No longer eligi ble based on patient's age to complete this topic Hepatitis A Vaccines Aged Out No long er eligible based on patient's age to complete this topic Hepatitis B Vaccines Aged Out No long er eligible based on patient's age to complete this topic IPV Vaccines Aged Out No longer eligi ble based on patient's age to complete this topic Meningococcal Vaccine Aged Out No loren alfa eligible based on patient's age to complete this topic RSV under 20 months Aged Out No longe r eligible based on patient's age to complete this topic Rotavirus Vaccines Aged Out No longer eligible based on patient's age to complete this topic Procedures Procedure Name Priority Date/Time Associated Diagnosis Comments BD DEXA AXIAL Routine 09/06/2024 10:30 AM EST US THYROID Routine 07/31/2024 10:55 AM EST LAB COLOGUARD?? COLON CANCER SCREEN Routine 11/29/2023 12:01 AM EDT Colon cancer screening LIPID PANEL, STANDARD Routine 11/04/2023 11:30 AM EST Primary hypertension from Last 3 Months or Most Recently Relevant to Health Maintenance Results * BD DEXA Axial (09/06/2024 10:30 AM EST) Anatomical Region Laterality Modality Body Radiographic Mima ging 09/06/2024 10:3 0 AM EST Narrative 09/10/2024 9:42 AM EST ? [facility] ? [address] ?[place] [address] ? Mammography Report ? Signed ? Patient: Nathaly Montero ?MR#: [id number] ?? [id number] ? : 1950 ?Acct:[id number] ? Age/Sex: 74 / F ?ADM Date: 09/06/24 ? Loc: HO.MAMMO ? Attending Dr: Wild Ventura DO, MD ? Ordering Physician: WILD VENTURA DO ?Results: ? Date of Service: 09/06/24 ?Follow Up: ? Procedure(s): XR DEXA axial skeleton ?? Accession Number(s): [id number] ? cc: Lalita Owens MD; WILD VENTURA DO ? EXAMINATION: ??Dual-Energy X-ray Absorptiometry - Bone Density Study ? 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 TECHNIQUE: [place] Dual energy absorptiometry (DEXA) ?? of the lumbar spine, total left hip, and femoral neck was performed. ? COMPARISON: ??There are no prior studies for comparison. ? FINDINGS: ? The bone mineral density of the lumbar spine is 0.889 with a T-score of ?? -2.6, and a Z-score of -0.5. ? The bone mineral density of the left total hip is 0.694 with a T-score ?? of -2.5, and a Z-score of -0.5. ? The bone mineral density of the left femoral neck is 0.684 with a ?? T-score of -2.5, and a Z-score of -0.4. ? MM/XR DEXA axial skeleton ?? IMPRESSION: ?? Based on bone mineral density, and according to World Health ?? Organization (WHO) criteria, the diagnosis is consistent with ?? osteoporosis. ? All bone density values are in grams per centimeter squared. ?? At this facility, the least significant change in BMD with 95% ?? confidence is 0.022 at the lumbar spine, 0.027 at the hip, and 0.023 at ?? the distal 1/3 radius. ? Electronically signed by: ??Popeye Gomez MD ??09/10/2024 09:39 AM EST ?? RP ? Dictated By: ?Popeye Gomez MD ? Signed By: ?<Electronically signed by Popeye Gomez MD in OV> ?09/10/24 0939 ? DD/ 1030 ? TD/TT: 09/06/24 1058 ? Quenching Machine Operator: ? Procedure Note Sia, Image - 09/10/2024 [facility] [address] [place] [address] [place]. [place], [place] [id number] Mammography Report Signed Patient: Supa Montero#: [id number] : 9Acct:[id number] Age/Sex: 74 / FADM Date: 09/06/24 Loc: [facility] Attending Dr: Wild Ventura DO, MD Ordering Physician: WILD VENTURAults: Date of Service: 09/06/24Follow Up: Procedure(s): XR DEXA axial skeleton Accession Number(s): [id number] cc: Lalita Owens MD; WILD VENTURA DO EXAMINATION: Dual-Energy X-ray Absorptiometry - Bone Density Study HISTORY: Estrogen deficiency TECHNIQUE: [place] Dual energy absorptiometry (DEXA) of the lumbar spine, total left hip, and femoral neck was performed. COMPARISON: There are no prior studies for comparison. FINDINGS: The bone mineral density of the lumbar spine is 0.889 with a T-score of -2.6, and a Z-score of -0.5. The bone mineral density of the left total hip is 0.694 with a T-score of -2.5, and a Z-score of -0.5. The bone mineral density of the left femoral neck is 0.684 with a T-score of -2.5, and a Z-score of -0.4. MM/XR DEXA axial skeleton IMPRESSION: Based on bone mineral density, and according to World Health Organization (WHO) criteria, the diagnosis is consistent with osteoporosis. All bone density values are in grams per centimeter squared. At this facility, the least significant change in BMD with 95% confidence is 0.022 at the lumbar spine, 0.027 at the hip, and 0.023 at the distal 1/3 radius. Electronically signed by: Popeye Gomez MD 09/10/2024 09:39 AM EST Dictated By: Popeye Gomez MD Signed By: <Electronically signed by Popeye Gomez MD in OV> 09/10/24 0939 DD/ 1030 TD/TT: 09/06/24 1058 Quenching Machine Operator: [facility] External Provider IMG DXA PROCEDURES Edited Result - Final * US Thyroid (07/31/2024 10:55 AM EST) Anatomical Region Laterality Modality Head, Neck Ultrasound 07/31/2024 10:5 5 AM EST Narrative 08/03/2024 10:08 AM EST ? [facility] ?[address] ?[place] [address] ? Ultrasound Report ? Signed ? Patient: Winston,Nathaly ?MR#: [id number] ?? [id number] ? : 1950 ?Acct:[id number] ? Age/Sex: 74 / F ?ADM Date: 07/31/24 ? Loc: HO.US ? Attending Dr: Wild Ventura DO, MD ? Ordering Physician: WILD VENTURA DO ?? Date of Service: 07/31/24 ?? Procedure(s): US thyroid ?? Accession Number(s): [id number] ? cc: Lalita Owens MD; WIDL VENTURA DO ? EXAMINATION: ?? US THYROID ? CLINICAL INFORMATION: ?? Nontoxic multinodular goiter. ? COMPARISON: ?? Ultrasound soft tissue head/neck thyroid dated October 19, 2023. ? TECHNIQUE: ?? Linear transducer grayscale and color Doppler examination with ?? attention to the region of the thyroid. ? FINDINGS: ? SIZE: Measurements of the thyroid lobes and nodules are given in ?? sagittal, anteroposterior and transverse dimensions respectively. ? Right Thyroid Lobe: 5.0 x 2.3 x 2.1 cm, volume 12.8 mL. Previously 5.3 ?? x 2.4 x 1.8 cm, volume 12.0 mL. ?? Parenchyma: The gland echotexture is homogeneous. Thyroid vascularity ?? is normal. ? Left Thyroid Lobe: 4.5 x 1.6 x 2.0 cm, volume 7.5 mL. Previously 4.8 x ?? 1.4 x 2.2 cm, volume 7.5 mL. ?? Parenchyma: The gland echotexture is homogeneous. Thyroid vascularity ?? is normal. ? Isthmus: 0.3 cm in maximum AP dimension. Previously 0.4 cm. ? Estimated total number of nodules greater than or equal to 1 cm: 0. ?? Business Unit Controller nodules are described as follows: ? 1. ??Location: Right superior. ? Size: 0.6 x 0.3 x 0.5 cm, volume 0.1 mL. ? Previously: 0.6 x 0.5 x 0.3 cm, volume 0.04 mL. ? Nodule characteristics: ? Composition: Mixed cystic and solid (1). ? Echogenicity: Hypoechoic (2). ? Shape: Not taller than wide (0). ? Margins: Smooth (0). ? Echogenic Foci: None (0). ? ACR TI-RADS total points: 3 Previous: 3 ? ACR TI-RADS category: 3 Previous: 3 ? Significant change in size (>/= 20% in 2 dimensions and minimal ?? increase of 2 mm or 50% or greater increase in volume): No ? Change in features: No ? Change in ACR TI-RADS risk category: No ? 2. ??Location: Right inferior. ? Size: 0.9 x 0.7 x 0.6 cm, volume 0.2 mL. ? Previously: 1.0 x 0.8 x 0.7 cm, volume 0.3 mL. (By my current ?? measurements, this nodule was also taller than wide on the prior.) ? Nodule characteristics: ? Composition: Solid (2). ? Echogenicity: Hypoechoic (2). ? Shape: Taller than wide (3). ? Margins: Smooth (0). ? Echogenic Foci: None (0). ? ACR TI-RADS total points: 7 Previous: 7 ? ACR TI-RADS category: 5 Previous: 5 ? Significant change in size (>/= 20% in 2 dimensions and minimal ?? increase of 2 mm or 50% or greater increase in volume): No ? Change in features: No ? Change in ACR TI-RADS risk category: No ? 3. ??Location: Right mid. ? Size: 0.8 x 0.7 x 0.7 cm, volume 0.2 mL. ? Previously: 1.0 x 1.0 x 0.8 cm, volume 0.4 mL. ? Nodule characteristics: This structure is felt more likely to ?? represent heterogeneous but otherwise normal thyroid tissue rather than ?? a true nodule. ? Composition: Solid (2). ? Echogenicity: Isoechoic (1). ? Shape: Not taller than wide (0). ? Margins: Ill-defined (0). ? Echogenic Foci: None (0). ? ACR TI-RADS total points: 3 Previous: 3 ? ACR TI-RADS category: 3 Previous: 3 ? Significant change in size (>/= 20% in 2 dimensions and minimal ?? increase of 2 mm or 50% or greater increase in volume): No ? Change in features: No ? Change in ACR TI-RADS risk category: No ? 4. ??Location: Left mid. ? Size: 0.6 x 0.4 x 0.5 cm, volume 0.1 mL. ? Previously: 0.6 x 0.5 x 0.3 cm, volume 0.04 mL. ? Nodule characteristics: ? Composition: Mixed cystic and solid (1). ? Echogenicity: Hypoechoic (2). ? Shape: Not taller than wide (0). ? Margins: Ill-defined (0). ? Echogenic Foci: None (0). ? ACR TI-RADS total points: 3 Previous: 3 ? ACR TI-RADS category: 3 Previous: 3 ? Significant change in size (>/= 20% in 2 dimensions and minimal ?? increase of 2 mm or 50% or greater increase in volume): No ? Change in features: No ? Change in ACR TI-RADS risk category: No ? 5. ??Location: Left inferior. ? Size: 0.5 x 0.6 x 0.4 cm, volume 0.06 mL. ? Previously: 0.5 x 0.6 x 0.4 cm, volume 0.06 mL. (This nodule was ?? also hypoechoic on the prior.) ? Nodule characteristics: ? Composition: Solid/almost completely solid (2). ? Echogenicity: Hypoechoic (2). ? Shape: Not taller than wide (0). ? Margins: Smooth (0). ? Echogenic Foci: None (0). ? ACR TI-RADS total points: 4 Previous: 4 ? ACR TI-RADS category: 4 Previous: 4 ? Significant change in size (>/= 20% in 2 dimensions and minimal ?? increase of 2 mm or 50% or greater increase in volume): No ? Change in features: No ? Change in ACR TI-RADS risk category: No ? NODES: No lymphadenopathy is seen in the tissue surrounding the thyroid ?? gland. ? US/US thyroid ?? IMPRESSION: ? Bilateral thyroid nodules as detailed above. Follow-up ultrasound in 1 ?? year is indicated, per ACR recommendation, with particular attention to ?? nodule #2. ? ACR TI-RADS RECOMMENDATION REFERENCE: ?? Ultrasound-guided fine-needle aspiration, follow up ultrasound, no ?? further followup. ? * TR1 (0 point) and TR2 (2 points): No FNA or followup ? * TR3 (3 points): FNA if more than or equal to 2.5 cm in maximum ?? dimension, follow up ultrasound in 1, 3 and 5 years if 1.5 to 2.4 cm in ?? maximum dimension. ? * TR4 (4-6 points): FNA if more than or equal to 1.5 cm in maximum ?? dimension, follow up ultrasound in 1, 2, 3 and 5 years if 1 to 1.4 cm ?? in maximum dimension. ? * TR5 (more than or equal to 7 points): FNA if more than or equal to 1 ?? cm in maximum dimension, follow up ultrasound every year for 5 years if ?? 0.5 to 0.9 cm in maximum dimension. ? * TR3, TR4 or TR5 nodules that are below the size threshold for follow ?? up receive no followup. ? Electronically signed by: ??Jonathan Templeton MD ??08/03/2024 10:05 AM EST RP ? Dictated By: ?Jonathan Templeton ? Signed By: ?<Electronically signed by Jonathan Templeton in OV> ?08/03/24 1005 ? DD/ 1055 ? TD/TT: 07/31/24 1117 ? Quenching Machine Operator: ? Procedure Note Sia, [place] - 08/03/2024 [place] [address] Ultrasound Report Signed Patient: Nathaly MonteroMR#: [id number] : 9Acct:[id number] Age/Sex: 74 / FADM Date: 07/31/24 Loc: HO.US Attending Dr: Wild Ventura DO, MD Ordering Physician: IWLD VENTURA DO Date of Service: 07/31/24 Procedure(s): US thyroid Accession Number(s): [id number] cc: Lalita Owens MD; WILD VENTURA DO EXAMINATION: US THYROID CLINICAL INFORMATION: Nontoxic multinodular goiter. COMPARISON: Ultrasound soft tissue head/neck thyroid dated October 19, 2023. TECHNIQUE: Linear transducer grayscale and color Doppler examination with attention to the region of the thyroid. FINDINGS: SIZE: Measurements of the thyroid lobes and nodules are given in sagittal, anteroposterior and transverse dimensions respectively. Right Thyroid Lobe: 5.0 x 2.3 x 2.1 cm, volume 12.8 mL. Previously 5.3 x 2.4 x 1.8 cm, volume 12.0 mL. Parenchyma: The gland echotexture is homogeneous. Thyroid vascularity is normal. Left Thyroid Lobe: 4.5 x 1.6 x 2.0 cm, volume 7.5 mL. Previously 4.8 x 1.4 x 2.2 cm, volume 7.5 mL. Parenchyma: The gland echotexture is homogeneous. Thyroid vascularity is normal. Isthmus: 0.3 cm in maximum AP dimension. Previously 0.4 cm. Estimated total number of nodules greater than or equal to 1 cm: 0. Business Unit Controller nodules are described as follows: 1. Location: Right superior. Size: 0.6 x 0.3 x 0.5 cm, volume 0.1 mL. Previously: 0.6 x 0.5 x 0.3 cm, volume 0.04 mL. Nodule characteristics: Composition: Mixed cystic and solid (1). Echogenicity: Hypoechoic (2). Shape: Not taller than wide (0). Margins: Smooth (0). Echogenic Foci: None (0). ACR TI-RADS total points: 3 Previous: 3 ACR TI-RADS category: 3 Previous: 3 Significant change in size (>/= 20% in 2 dimensions and minimal increase of 2 mm or 50% or greater increase in volume): No Change in features: No Change in ACR TI-RADS risk category: No 2. Location: Right inferior. Size: 0.9 x 0.7 x 0.6 cm, volume 0.2 mL. Previously: 1.0 x 0.8 x 0.7 cm, volume 0.3 mL. (By my current measurements, this nodule was also taller than wide on the prior.) Nodule characteristics: Composition: Solid (2). Echogenicity: Hypoechoic (2). Shape: Taller than wide (3). Margins: Smooth (0). Echogenic Foci: None (0). ACR TI-RADS total points: 7 Previous: 7 ACR TI-RADS category: 5 Previous: 5 Significant change in size (>/= 20% in 2 dimensions and minimal increase of 2 mm or 50% or greater increase in volume): No Change in features: No Change in ACR TI-RADS risk category: No 3. Location: Right mid. Size: 0.8 x 0.7 x 0.7 cm, volume 0.2 mL. Previously: 1.0 x 1.0 x 0.8 cm, volume 0.4 mL. Nodule characteristics: This structure is felt more likely to represent heterogeneous but otherwise normal thyroid tissue rather than a true nodule. Composition: Solid (2). Echogenicity: Isoechoic (1). Shape: Not taller than wide (0). Margins: Ill-defined (0). Echogenic Foci: None (0). ACR TI-RADS total points: 3 Previous: 3 ACR TI-RADS category: 3 Previous: 3 Significant change in size (>/= 20% in 2 dimensions and minimal increase of 2 mm or 50% or greater increase in volume): No Change in features: No Change in ACR TI-RADS risk category: No 4. Location: Left mid. Size: 0.6 x 0.4 x 0.5 cm, volume 0.1 mL. Previously: 0.6 x 0.5 x 0.3 cm, volume 0.04 mL. Nodule characteristics: Composition: Mixed cystic and solid (1). Echogenicity: Hypoechoic (2). Shape: Not taller than wide (0). Margins: Ill-defined (0). Echogenic Foci: None (0). ACR TI-RADS total points: 3 Previous: 3 ACR TI-RADS category: 3 Previous: 3 Significant change in size (>/= 20% in 2 dimensions and minimal increase of 2 mm or 50% or greater increase in volume): No Change in features: No Change in ACR TI-RADS risk category: No 5. Location: Left inferior. Size: 0.5 x 0.6 x 0.4 cm, volume 0.06 mL. Previously: 0.5 x 0.6 x 0.4 cm, volume 0.06 mL. (This nodule was also hypoechoic on the prior.) Nodule characteristics: Composition: Solid/almost completely solid (2). Echogenicity: Hypoechoic (2). Shape: Not taller than wide (0). Margins: Smooth (0). Echogenic Foci: None (0). ACR TI-RADS total points: 4 Previous: 4 ACR TI-RADS category: 4 Previous: 4 Significant change in size (>/= 20% in 2 dimensions and minimal increase of 2 mm or 50% or greater increase in volume): No Change in features: No Change in ACR TI-RADS risk category: No NODES: No lymphadenopathy is seen in the tissue surrounding the thyroid gland. US/US thyroid IMPRESSION: Bilateral thyroid nodules as detailed above. Follow-up ultrasound in 1 year is indicated, per ACR recommendation, with particular attention to nodule #2. ACR TI-RADS RECOMMENDATION REFERENCE: Ultrasound-guided fine-needle aspiration, follow up ultrasound, no further followup. * TR1 (0 point) and TR2 (2 points): No FNA or followup * TR3 (3 points): FNA if more than or equal to 2.5 cm in maximum dimension, follow up ultrasound in 1, 3 and 5 years if 1.5 to 2.4 cm in maximum dimension. * TR4 (4-6 points): FNA if more than or equal to 1.5 cm in maximum dimension, follow up ultrasound in 1, 2, 3 and 5 years if 1 to 1.4 cm in maximum dimension. * TR5 (more than or equal to 7 points): FNA if more than or equal to 1 cm in maximum dimension, follow up ultrasound every year for 5 years if 0.5 to 0.9 cm in maximum dimension. * TR3, TR4 or TR5 nodules that are below the size threshold for follow up receive no followup. Electronically signed by: Jonathan Templeton MD 08/03/2024 10:05 AM [facility] Dictated By: Jonathan Templeton Signed By: <Electronically signed by Jonathan Templeton in OV> 08/03/24 1005 DD/ 1055 TD/TT: 07/31/24 1117 Quenching Machine Operator: us [facility] External Provider IMG US PROCEDURES Edited Result - Final * Cologuard?? colon cancer screening (11/29/2023 12:01 AM EDT) Cologuard Result Negative Negative 12/04/19 6:00 PM EDT [employer] (CLIA #:[id number]) Comment: NEGATIVE TEST RESULT. A negative Cologuard result indicates a low likelihood that a colorectal cancer (CRC) or advanced adenoma (adenomatous polyps with more advanced pre-malignant features) ??is present. The chance that a person with a negative Cologuard test has a colorectal cancer is less than 1 in 1500 (negative predictive value >99.9%) or has an ??advanced adenoma is less than ??5.3% (negative predictive value 94.7%). These data are based on a prospective cross-sectional study of 10,000 individuals at average risk for colorectal cancer who were screened with both Cologuard and colonoscopy. (Gisela Cameron et al, N Engl J Med 2014;370(14):1286- 1297) The normal value (reference range) for this assay is negative. COLOGUARD RE-SCREENING RECOMMENDATION: Periodic colorectal cancer screening is an important part of preventive healthcare for asymptomatic individuals at average risk for colorectal cancer. ??Following a negative Cologuard result, the [place] [employer] and U.S. Multi-Society Task Force screening guidelines recommend a Cologuard re-screening interval of 3 years. References: [place] [employer] Guideline for Colorectal Cancer Screening: https://www.cancer.org/cancer/pezzs-zruyue-mjdvii/vrvflyvzc-londyeibb-mtuyqis/ac s-rec ommendations.html.; Bryson DK, Aliza CR, Nicolas HardingK, Colorectal Cancer Screening: Recommendations for Physicians and Patients from the U.S. Multi-Society Task Force on Colorectal Cancer Screening , Am J Gastroenterology 2017; 112:8187-5976. TEST DESCRIPTION: Composite algorithmic analysis of stool DNA-biomarkers with hemoglobin immunoassay. ?? Quantitative values of individual biomarkers are not reportable and are not associated with individual biomarker result reference ranges. Cologuard is intended for colorectal cancer screening of adults of either sex, 45 years or older, who are at average-risk for colorectal cancer (CRC). Cologuard has been approved for use by the U.S. FDA. The performance of Cologuard was established in a cross sectional study of average-risk adults aged 50-84. Cologuard performance in patients ages 45 to 49 years was estimated by sub-group analysis of near-age groups. Colonoscopies performed for a positive result may find as the most clinically significant lesion: colorectal cancer [4.0%], advanced adenoma (including sessile serrated polyps greater than or equal to 1cm diameter) [20%] or non- advanced adenoma [31%]; or no colorectal neoplasia [45%]. These estimates are derived from a prospective cross-sectional screening study of 10,000 individuals at average risk for colorectal cancer who were screened with both Cologuard and colonoscopy. (Gisela Monroe al, N Engl J Med 2014;370(14):9179-6711.) Cologuard may produce a false negative or false positive result (no colorectal cancer or precancerous polyp present at colonoscopy follow up). A negative Cologuard test result does not guarantee the absence of CRC or advanced adenoma (pre-cancer). The current Cologuard screening interval is every 3 years. ([place] [employer] and U.S. Multi-Society Task Force). Cologuard performance data in a 10,000 patient pivotal study using colonoscopy as the reference method can be accessed at the following location: www.[employer]/results. Additional description of the Cologuard test process, warnings and precautions can be found at www.[employer].Connectivity. Stool specimen (specimen) Rectal contents / Unknown 11/29/2023 12:01 AM EDT 12/01/2023 10:59 AM EDT Lalita Rodriguez MD LAB MOLECULAR DIAGNOS TICS ORDERABLES Final Result [employer] (CLIA #:[id number]) [place] [id number], * (ABNORMAL) Lipid Panel, Standard (11/04/2023 11:30 AM EST) Triglycerides 111 <150 mg/dL [facility] Comment:Desirable Triglyceri de: less than 150 mg/dLBorderline High Triglyceride 150-199 mg/dLHigh Triglyceride: 200-499 mg/dLVery High Triglyceride: greater than or equal to 5OO mg/dL Cholesterol 183 <200 mg/dL [facility] Comment:Desirable Cholestero l: less than 200 mg/dLBorderline High Cholesterol: 200-239 mg/dLHigh Cholesterol: greater than 239 mg/dL LDL Cholesterol Calculated 103(H) <100 mg/dL [facility] Comment:Desirable LDL: less than 100 mg/dLNear Optimal/Above Optimal LDL: 110- 129 mg/dLBorderline High LDL: 130-159 mg/dLHigh LDL: 160-189 mg/dLVery High LDL: greater than or equal to 190 mg/dL HDL Cholesterol 58 >40 mg/dL [facility] Comment:Desirable HDL: great er than 40 mg/dL Note: This HDL assay may give artificially low results in patients with liver disease. Blood Venous blood specimen / Unknown 11/04/2023 11:30 AM EST 11/04/2023 12:56 PM EST us Lalita Rodriguez MD LAB BLOOD ORDERABLES Final Result [facility] [address] [place] [address] [phone] from Last 3 Months or Most Recently Relevant to Health Maintenance Insurance [facility] Care Teams Typesetter Perforator Operator Relationship Specialty Start Date End Date Lalita Owens MD [address] [place] [phone] PCP - General Internal Medicine 09/23/23
--- OUTSIDE RECORDS SUMMARY | 2024-10-11 10:14 | XMS_ITS | Encounter Summary ---
Author Organization [employer] Address [address] [place] [address] Care Team Providers Care Technical Supervisor Name Role Phone Lalita Owens MD Primary Care Provide r Reason for Visit * Reason Comments Med Refill Encounter Details Date Type Department Care Team ([facility] st Contact Info) Description 10/09/2024 Refill [facility] [address] [place] [address] Lalita Owens MD [address] [place] [address] Peptic ulcer; Primary hypertension; Hand eczema Social History Tobacco Use Types Packs/Day Years [...] the past 12 months, has t he [employer], gas, oil or water [employer] threatened to shut off services in your [...] Description 10/30/2024 1:30 PM EST Clinical Support [facility] [address] [place] [phone] [place] [phone] 11/23/2024 9:30 AM EDT Office Visit [facility] [address] [place] [phone] Lalita Owens MD [address] [place] [phone] documented as of this encounter Visit Diagnoses Diagnosis Peptic ulcer Peptic ulcer, unspecified site, unspecified as acute or chronic, without mention of hemorrhage, perforation, or obstruction Primary hypertension Unspecified essential hypertension Hand eczema Contact dermatitis and other eczema, due to unspecified cause documented in this encounter Additional Health Concerns Assessment Noted Time PHQ-9 Depression Total Score: 7 11/01/19 24 10:28 AM EST documented as of this encounter Care Teams Technical Supervisor Relationship Specialty Start Date End Date Lalita Owens MD [address] [place] [address] PCP - General Internal Medicine 09/23/23 documented as of this encounter
--- OUTSIDE RECORDS SUMMARY | 2024-10-11 10:14 | XMS_ITS | Encounter Summary ---
Author Organization [employer] Address [address] [place] [address] [address] [place] [address] Care Team Providers Care Rn Building Name Role Phone Lalita Owens MD Primary Care Provide r Reason for Visit * Reason Onset Date Comments New Patient 09/08/2023 Encounter Details Date Type Department Care Team ([facility] st Contact Info) Description 09/08/2023 Telephone [facility] [address] [place] [address] Toney Leyva MD [address] [place], [place] [phone] New Patient Social History Tobacco Use Types Packs/Day Years Used Date Smoking Tobacco: Never Assessed Comments Unknown Sex and Gender Information Value Date Recorded Sex Assigned at Female 08/04/2023 10:55 AM EST Legal Sex Female 10:53 AM EST Gender Identity Female 08/04/2023 10:55 AM EST Sexual Orientation Straight 08/04/2023 10 :55 AM EST documented as of this encounter Miscellaneous Notes * Telephone Encounter - Elizabeth Lomax - 09/08/2023 1:41 PM EST Tc to pt, to inform that we have received her message of becoming a patient with the facility, but unfortunately we do not have no New Patient Availability at this time but pt will be placed on the waiting list until Availability Opens up. No answer due to phone not receiving calls at this time. documented in this encounter Plan of Treatment Upcoming Encounters Date Type Department Care Team (Late st Contact Info) Description 10/30/2024 1:30 PM EST Clinical Support [facility] [address] [place], [place] [phone] [place] [address] 11/23/2024 9:30 AM EDT Office Visit [facility] [address] [place] [address] Lalita Owens MD [address] [place], [place] [phone] documented as of this encounter Visit Diagnoses Not on filedocumented in this encounter Care Teams Rn Building Relationship Specialty Start Date End Date Lalita Owens MD [address] [place], [place] [phone] PCP - General Internal Medicine 09/23/23 documented as of this encounter
--- NOTE | 2024-10-11 11:43 | W.PM.OPN ---
Operative Note Operative Note Date of Service: 10/11/24 Narrative: Preoperative diagnosis: [] Very extensive symptomatic internal and external hemorrhoids Postop diagnosis: [] The same Procedure [] internal and external hemorrhoidectomy x3 Surgeon: [] [employer] Driver: [] Type of Anesthesia: [] General Indication for surgery: [] Patient had massive enlarged prolapsed internal and external hemorrhoids at the 3, 7 and 11:00 o'clock positions lithotomy. Findings: [] Patient brought to the operating room, placed on operative table supine position, after an adequate level of general anesthesia was induced, patient was placed in lithotomy position , and anorectal area was prepped and draped in usual sterile fashion. Each hemorrhoidal bundle at the 3, 7, 11:00 o'clock positions were sequentially grasped, brought onto the field, and double ligature firing superficially. Each specimen was then sent to pathology. The bottom to (03:00 o'clock, 07:00 o'clock) hemorrhoidal bases were reapproximated using vertical mattress interrupted 2-0 chromic sutures. At completion, wound was irrigated, secured hemostasis, no evidence of anorectal stricture demonstrated, and wound was infiltrated with 0.5% Marcaine/1% lidocaine. This was followed by Gelfoam plug with topical anesthetic plug. Dressings and mesh panties were then placed. Sponge, needle, and instrument counts reported correct. Patient tolerated the procedure well and emerged from anesthesia stable condition. EBL minimal
[2024-10-11 11:55] VITALS: BP 150/68; PULSE 67; RESP 18; TEMP 36.1; O2SAT 100
[2024-10-11 12:00] VITALS: BP 144/68; PULSE 63; RESP 17; O2SAT 97
[2024-10-11 12:05] VITALS: BP 149/78; PULSE 61; RESP 18; O2SAT 98
[2024-10-11 12:10] VITALS: BP 166/73; PULSE 58; RESP 18; O2SAT 98
[2024-10-11 12:25] VITALS: BP 150/73; PULSE 59; RESP 18; TEMP 36.2; O2SAT 97
== END 2024-10-11 13:39 | disposition home or self-care (01) ==
PROVIDERS: PCP Internal Medicine; Visit Provider Surgery
PROC: (CPT 46260; principal; 2024-10-11 10:20)
DX: K64.8 Other hemorrhoids (principal); K64.4 Residual hemorrhoidal skin tags; I10 Essential (primary) hypertension; K59.00 Constipation, unspecified; N81.4 Uterovaginal prolapse, unspecified; E55.9 Vitamin D deficiency, unspecified; E04.2 Nontoxic multinodular goiter; R74.8 Abnormal levels of other serum enzymes; L63.9 Alopecia areata, unspecified; F17.210 Nicotine dependence, cigarettes, uncomplicated; Z79.899 Other long term (current) drug therapy
CPT/HCPCS: 46260; 88304; J0131; J0690; J1100; J2003; J2405; J2704; J3010

== ENCOUNTER → 2024-10-11 09:42 | Outpatient (BNV) | payer OTHER, SELFPAY | PROVIDERS: PCP Internal Medicine; Visit Provider Surgery | DX: K64.8 Other hemorrhoids (principal) | CPT/HCPCS: 46260 ==

== ENCOUNTER 2024-10-23 12:13 | Emergency (ER) | payer OTHER, SELFPAY ==
--- NOTE | 2024-10-23 13:00 | ED_ITS ---
HPI - General Adult General Chief complaint: General Medical Stated complaint: buttock pain recent surgery hemmhoids Time Seen by Provider: 10/23/24 17:11 Source: patient and RN notes reviewed Mode of arrival: ambulatory Limitations: no limitations History of Present Illness ED Provider: Arlin Encarnacion PA-C HPI narrative: This is a 74-year-old female, with a past medical history of hypertension, hyperlipidemia, who presents emergency department with concerns for rectal pain status post hemorrhoidectomy performed by Dr. Randolph on 10/11/2024. Patient reports that she was discharged on Vicodin, which she has taken intermittently however she gets very nauseous, and stomach pain after taking this therefore she was only been able to take Tylenol. She states that she was still having bowel movements however expresses concerns as she was pain with pushing. She denies any fevers, chills, abdominal pain, nausea, vomiting or diarrhea. She states that the abdominal pain and vomiting only occurs after taking the Vicodin. No other complaints or concerns at this time. MD complaint: Rectal pain Onset (ago): day(s) Radiation: non-radiation Relieving factors: none Exacerbating factors: none Associated symptoms: denies other symptoms Treatments prior to arrival: none Related Data Home Medications ?Medication ?Instructions ?Recorded ?Confirmed amlodipine 10 mg tablet 10 mg PO DAILY 09/04/24 10/11/24 ammonium lactate 12 % topical cream 1 appl topical BID 09/04/24 10/11/24 atorvastatin 40 mg tablet 40 mg PO DAILY 09/04/24 10/11/24 betamethasone, augmented 0.05 % topical 09/04/24 09/04/24 topical ointment cholecalciferol (vitamin D3) 50 50 mcg PO DAILY 09/04/24 10/11/24 mcg (2,000 unit) capsule (Vitamin D3) docusate sodium 100 mg capsule 100 mg PO BID 09/04/24 10/11/24 ergocalciferol (vitamin D2) 1,250 1,250 mcg PO QWEEK 09/04/24 10/11/24 mcg (50,000 unit) capsule famotidine 20 mg tablet 20 mg PO BID 09/04/24 10/11/24 hydrocortisone 2.5 % topical cream topical 09/04/24 09/04/24 with perineal applicator triamcinolone acetonide 0.1 % topical 09/04/24 09/04/24 topical ointment Previous Rx's ?Medication ?Instructions ?Recorded hydrocodone 5 mg-acetaminophen 325 1 tab PO Q4-6H PRN pain #30 tabs 10/11/24 mg tablet morphine 15 mg immediate release 15 mg PO Q8H PRN severe pain 10/23/24 tablet (scale score 7-10) #4 tabs Allergies Allergy/AdvReac Type Severity Reaction Status Date / Time hydrocodone Allergy Fatigued Verified 10/23/24 15:57 Penicillins Allergy Unknown Verified 10/23/24 13:08 Review of Systems 2 Review of Systems: Yes all other systems are reviewed and are negative Constitutional: Constitutional: Reports as per [facility] Past Medical History Medical History (Updated 10/23/24 @ 18:31 by STEPHON Aquino) Encounter for screening mammogram for malignant neoplasm of breast Constipation Vitamin D deficiency Non-toxic multinodular goiter Elevated alkaline phosphatase level Colon cancer screening Peptic ulcer Hemorrhoids Enlarged thyroid Primary hypertension Alopecia areata Uterine prolapse Surgical History (Updated 10/19/24 @ 13:31 by CON Garcia) H/O hemorrhoidectomy (10/11/24) Social History Social History Are you a primary care program resident to a significant other at home: No Do you presently have visiting nurse or other home services: No Alcohol intake: current Alcohol intake frequency: holidays/special occasions only Patient Tobacco Use Status: Current everyday Tobacco user Tobacco use type: Cigarette Cigarettes Per Day: 3 Advance Directives: No Advance Directives Information Provided: Yes Do you have a plan to hurt others: No Plan Physical Exam ED Vital Signs: Vital Signs - 24 hr 10/23/24 13:02 10/23/24 15:49 10/23/24 18:28 Temperature 98 F 98.8 F 97.9 F Pulse Rate 66 87 76 Respiratory Rate 18 18 20 Blood Pressure 158/77 H 140/83 H 155/77 H Pulse Oximetry 98 96 97 Oxygen Delivery Method Room Air Room Air Room Air BMI result Body Mass Index 23.2 Const General: cooperative, comfortable and no acute distress Orientation/consciousness: patient oriented x3 Limitations: no limitations HENMT Head: Yes normal to inspection, Yes normocephalic and Yes atraumatic Ears: hearing grossly normal bilaterally General nose exam: Normal external nose present Face and sinus: Yes normal facial exam Mouth: Normal oral and palatal mucosa present, oropharynx normal and moist mucous membranes Throat: Yes posterior oropharynx normal Eyes General: appearance normal, both eyes and all related structures Eyelids: Yes eyelids normal Conjunctivae: conjunctivae normal Sclerae: sclerae normal Pupils: Equal, round and reactive pupils present EOM: EOMs intact bilaterally Neck Neck: Yes normal visual inspection, Yes full ROM and Yes no lymphadenopathy Lymphatic: no lymphadenopathy noted Chest Chest palpation & inspection: normal inspection of the chest Resp Effort & Inspection: normal respiratory effort and able to speak in complete sentences Auscultation: clear to auscultation bilaterally, no crackles, no rales, no rhonchi and no wheezes Cardio Rate: regular rate Rhythm: regular rhythm Heart sounds: S1 normal heart sound present and S2 normal heart sound present GI Other: Rectal examination revealing light brown stool, after cleansing, no surrounding erythema or warmth, there is slight skin breakdown noted along the gluteal cleft, no drainage. No abscess. Skin General skin exam: no rashes or lesions noted Trauma: no lacerations or abrasions Wounds: no wounds Neuro General: patient oriented x3 and moves all extremities Cranial nerves: Yes Equal, round and reactive pupils present Extrem General: Yes normal to inspection Right upper extremity: normal to inspection Left upper extremity: normal to inspection Right lower extremity: normal to inspection Left lower extremity: normal to inspection Course Course Course Narrative: This is a rapid medical exam performed by Ramírez Lynch NP: Additional HPI, ROS, PE not included below will be deferred to primary provider. Patient is a 74-year-old female with pmhx of primary HTN, multinodular goiter presenting with complaint of rectal pain. Had recent hemorrhoidectomy with Dr. Randolph on 10/11. Has had pain since the surgery. Worried about infection. Denies fevers or purulent drainage. Area not visualized in triage due to privacy concerns. Has appointment with Dr. Randolph tomorrow at 10:30. Plan: labs Reevaluation(s) Reevaluation #1: Patient tolerated the morphine well, she is feeling well, and very eager for discharge, already has oxycodone. I discussed with patient that I would like to keep her to ensure that her pain has improved however patient very anxious to leave. I encouraged to keep wound clean and dry. She will follow-up with Dr. Randolph. Encouraged Sitz baths. Given strict return precautions. Patient stable for discharge. Medications Administered Discontinued Medications Generic Name Dose Route Start Last Admin Trade Name Antonella PRN Reason Stop Dose Admin Morphine Sulfate 15 mg 10/23/24 17:46 10/23/24 18:01 Morphine Sulfate Immed Release 15 Mg Tablet PO 10/23/24 17:47 15 mg ONCE ONE Administration Medical Decision Making Medical Decision Making [facility] Narrative: This is a 74-year-old female who presents emergency department for evaluation of rectal pain status post hemorrhoidectomy which occurred [address] Randolph. She states that she has been unable to tolerate the pain medication she was discharged on due to nausea and vomiting. She has no abdominal pain, nausea or vomiting. She does have rectal pain. She states that she has had a bowel movement, last bowel movement was this morning. She states that her bowels are soft. She was also increasing her fiber in her diet as well as drinking prune juice. She states that she has been taking Tylenol however this is not sufficient to cover her for the pain. She was unable to tolerate the Vicodin. She has tolerated morphine in the past. Will try on morphine in the department. She has no evidence of infection, or abscess on physical exam. She does have follow-up with Dr. Randolph tomorrow afternoon. Differential Diagnosis Differential Diagnoses: The differential diagnosis associated with the presentation includes Cellulitis, wound check, wound infection, abscess, wound dehiscence, skin breakdown Lab Data [facility] Lab Attestation statement: I reviewed the patient's lab results. 10/23/24 13:25 10/23/24 13:25 Labs: Lab Results 10/23/24 Range/Units 13:25 WBC 4.6 L (4.8-10.8) X10*3/uL RBC 4.11 L (4.20-5.50) X10*6/uL Hgb 12.6 (12.0-16.0) g/dl Hct 40.0 (37.0-47.0) % MCV 97.3 (80.0-98.0) fL MCH 30.7 (27.0-33.0) pg MCHC 31.5 (31.0-35.0) g/dl RDW 11.9 (11.0-16.0) % Plt Count 350 D (160-400) X10*3/uL MPV 10.2 (9.4-12.3) fL Immature Gran % (Auto) 0.2 (0.0-0.4) % Neut % (Auto) 41.0 L (45-73) % Lymph % (Auto) 44.6 H (20-40) % [place] % (Auto) 10.8 (2-11) % Eos % (Auto) 2.8 (0-4) % Baso % (Auto) 0.6 (0-2) % Lymph # (Auto) 2.1 (1.2-4.9) X10*3/uL [place] # (Auto) 0.5 (0.1-1.2) X10*3/uL Eos # (Auto) 0.1 (0.0-0.4) X10*3/uL Baso # (Auto) 0.0 (0.0-0.2) X10*3/uL Abs Immat Gran (auto) 0.01 (0.00-0.03) X10*3/uL Absolute Neuts (auto) 1.9 L (2.0-8.3) x10*3/uL Absolute Nucleated RBC 0.000 (0.0-0.012) X10*3/uL Nucleated RBC % (auto) 0.0 (0.0-0.2) /100WBC Sodium 141 (135-145) mmol/L Potassium 4.7 (3.3-5.1) mmol/L Chloride 104 (96-108) mmol/L Carbon Dioxide 28 (22-29) mmol/L Anion Gap 14 (12-20) BUN 15 (9-16) mg/dL Creatinine 0.79 (0.5-1.4) mg/dL Estim Creat Clear Calc 45.4 Estimated GFR > 60 Random Glucose 102 (60-115) mg/dL Calcium 10.2 (8.4-10.2) mg/dL Total Bilirubin 0.5 (0.0-1.0) mg/dL AST 30 (5-31) U/L ALT 37 H (0-31) U/L Alkaline Phosphatase 174 H (39-117) U/L Total Protein 7.9 (6.5-8.0) g/dL Albumin 4.2 (3.5-5.0) g/dL Radiology Impression Discussion of test interpretation with radiology: I have reviewed the radiologist's reading. External Record Review External record reviewed: Inpatient record, Office record, Outpatient record, Prior outpatient labs, Prior outpatient radiology, Primary care record and Outside ED record Discharge Plan Discharge Clinical Impression: Pain, rectal Patient Disposition: Home, Self-Care Instructions: Sitz Bath (DC), Rectal Pain (ED) Additional Instructions: You were seen in the emergency department due to rectal pain. Please take morphine only sparingly as needed for severe pain only. Please be advised that morphine can cause drowsiness, do not drink alcohol or drive while taking this medication. Also be advised that this can cause constipation therefore it is pertinent that you continue using your stool softener, docusate. The area does not appear to be infected at this time however please follow-up with Dr. Randolph, your surgeon. Watch for any new or worsening symptoms including but not limited to worsening pain, increased swelling, fevers or chills. If any of these occur, please seek emergent care. Prescriptions: New morphine 15 mg tablet 15 mg PO Q8H PRN (Reason: severe pain (scale score 7-10)) Qty: 4 0RF Rx Instructions: Partial Fill upon patient request. No Action hydrocodone-acetaminophen 5-325 mg tablet 1 tab PO Q4-6H PRN (Reason: pain) Qty: 30 0RF Rx Instructions: Partial Fill upon patient request. ammonium lactate 12 % cream 1 appl topical BID amlodipine 10 mg tablet 10 mg PO DAILY famotidine 20 mg tablet 20 mg PO BID hydrocortisone 2.5 % cream with perineal applicator topical atorvastatin 40 mg tablet 40 mg PO DAILY docusate sodium 100 mg capsule 100 mg PO BID cholecalciferol (vitamin D3) [Vitamin D3] 50 mcg (2,000 unit) capsule 50 mcg PO DAILY ergocalciferol (vitamin D2) 1,250 mcg (50,000 unit) capsule 1,250 mcg PO QWEEK betamethasone, augmented 0.05 % ointment topical triamcinolone acetonide 0.1 % ointment topical Referrals: Yovany Randolph MD [Physician] - Print Language: French
[2024-10-23 13:02] VITALS: BP 158/77; PULSE 66; RESP 18; TEMP 36.6; O2SAT 98; BMI 23.2
[2024-10-23 13:33] LABS: MANUAL DIFF FLAG NO
[2024-10-23 13:39] LABS: Basophils Percent Auto 0.6 % (0-2); Eosinophils Absolute Auto 0.1 X10*3/uL (0.0-0.4); Eosinophils Percent Auto 2.8 % (0-4); Hemoglobin 12.6 g/dl (12.0-16.0); Imm Gran Abs Auto 0.01 X10*3/uL (0.00-0.03); Imm Gran Pct Auto 0.2 % (0.0-0.4); Lymphocytes Absolute Auto 2.1 X10*3/uL (1.2-4.9); Lymphocytes Percent Auto 44.6 % (20-40); Mean Corpuscular HGB Conc 31.5 g/dl (31.0-35.0); Mean Corpuscular Hemoglobin 30.7 pg (27.0-33.0); Mean Corpuscular Volume 97.3 fL (80.0-98.0); Mean Platelet Volume 10.2 fL (9.4-12.3); Monocytes Absolute Auto 0.5 X10*3/uL (0.1-1.2); Monocytes Percent Auto 10.8 % (2-11); Neutrophils Absolute Auto 1.9 x10*3/uL (2.0-8.3); Platelet Count 350 X10*3/uL (160-400); Red Blood Count 4.11 X10*6/uL (4.20-5.50); Red Cell Distribution Width 11.9 % (11.0-16.0); White Blood Count 4.6 X10*3/uL (4.8-10.8)
[2024-10-23 14:27] LABS: Alanine Aminotransferase 37 U/L (0-31); Albumin Level 4.2 g/dL (3.5-5.0); Alkaline Phosphatase 174 U/L (39-117); Anion Gap 14 (12-20); Aspartate Amino Transferase 30 U/L (5-31); Bilirubin Total 0.5 mg/dL (0.0-1.0); Blood Urea Nitrogen 15 mg/dL (9-16); Calcium 10.2 mg/dL (8.4-10.2); Carbon Dioxide 28 mmol/L (22-29); Chloride 104 mmol/L (96-108); Creatinine Clr Calc Pharmacy 45.4; Estimated Glomerular Filt Rate > 60; Glucose Random 102 mg/dL (60-115); Potassium 4.7 mmol/L (3.3-5.1); Sodium 141 mmol/L (135-145); Total Protein 7.9 g/dL (6.5-8.0)
[2024-10-23 15:49] VITALS: BP 140/83; PULSE 87; RESP 18; TEMP 37.1; O2SAT 96
--- OUTSIDE RECORDS SUMMARY | 2024-10-23 16:37 | XMS_ITS | Encounter Summary ---
Author Organization [employer] Address [address] [place] [address] [facility] [place] [address] Care Team Providers Care Aml Analyst Name Role Phone Lalita Owens MD Primary Care Provide r Reason for Visit * Reason Onset Date Comments New Patient 09/08/2023 Encounter Details Date Type Department Care Team ([facility] st Contact Info) Description 09/08/2023 Telephone [facility] [address] [place] [address] Toney Leyva MD [address] [place], [place] [phone] New Patient Social History Tobacco Use Types [...] encounter Miscellaneous Notes * Telephone Encounter - Elizabeht Lomax - 09/08/2023 1:41 PM EST Tc [...] Description 10/30/2024 1:30 PM EST Clinical Support [facility] DIABETES/NUTRITION [address] [place], [place] [phone] [place] [address] 11/23/2024 9:30 AM EDT Office Visit [facility] [address] [place] [address] Lalita Owens MD [address] [place], [place] [phone] documented as of this encounter Visit Diagnoses Not on filedocumented in this encounter Care Teams Aml Analyst Relationship Specialty Start Date End Date Lalita Owens MD [address] [place], [place] [phone] PCP - General Internal Medicine 09/23/23 documented as of this encounter
--- OUTSIDE RECORDS SUMMARY | 2024-10-23 16:37 | XMS_ITS | Encounter Summary ---
Author Organization [employer] Address [address] [place] [address] Care Team Providers Care Structural Analyst Name Role Phone Lalita Owens MD Primary Care Provide r Reason for Visit * Reason Comments Med Refill Encounter Details Date Type Department Care Team ([facility] st Contact Info) Description 10/09/2024 Refill [facility] [address] [place] [address] Lalita Owens MD [address] [place] [address] Peptic ulcer; Primary hypertension; Hand eczema Social [...] the past 12 months, has t he [employer], gas, oil or water [employer] threatened to shut off services in your [...] Description 10/30/2024 1:30 PM EST Clinical Support [facility] DI[facility]ETES/NUTRITION [address] [place] [phone] [place] [phone] 11/23/2024 9:30 AM EDT Office Visit [facility] MEDICINE [address] [place] [phone] Lalita Owens MD [address] [place] [phone] documented as of this encounter Visit Diagnoses [...] documented as of this encounter Care Teams Structural Analyst Relationship Specialty Start Date End Date Lalita Owens MD [address] [place] [address] PCP - General Internal Medicine 09/23/23 documented as of this encounter
--- OUTSIDE RECORDS SUMMARY | 2024-10-23 16:37 | XMS_ITS | Encounter Summary ---
Author Organization [employer] Address [address] [place] [address] Care Team Providers Care Algebra Teacher Name Role Phone Lalita Owens MD Primary [...] Description 10/30/2024 1:30 PM EST Clinical Support [facility] DIABETES/NUTRITION [address] [place] [phone] [place] [address] 11/23/2024 9:30 AM EDT Office Visit [facility] MEDICINE [address] [place] [address] Lalita Owens MD [address] [place] [address] documented as of this encounter Visit Diagnoses Not on filedocumented in this encounter Additional Health Concerns Assessment Noted Time PHQ-9 Depression Total Score: 7 11/01/19 10:28 AM EST documented as of this encounter Care Teams Algebra Teacher Relationship Specialty Start Date End Date Lalita Owens MD [address] [place] [id number] PCP - General Internal Medicine 09/23/23 documented as of this encounter
--- OUTSIDE RECORDS SUMMARY | 2024-10-23 16:37 | XMS_ITS | Encounter Summary ---
Author Organization [employer] Address [address] [place] [address] [facility] [place] [address] Care Team Providers Care Street Car Mechanic Name Role Phone Lalita Owens MD Primary Care Provide r Reason for Visit * Consultation (Routine) - Authorized Specialty Diagnoses / Procedures Referred By Stephanie friedman Referred To Contact Nutrition Diagnoses Primary hypertension Body mass index (BMI) 23.0-23.9, adult Lalita Owens MD [address] [place] [address] Phone: tel: fax: Referral ID Status Reason Start Date Expiration Date Visits Requested Visits Authorized [id number] Authorized Specialty Services Required 4 08/10/2025 1 1 Encounter Details Date Type Department Care Team ([facility] st Contact Info) Description 10/02/2024 1:00 PM EST Nutrition [facility] DI[facility]ETES/NUTRITION [address] [place] [address] [place] [address] Primary hypertension; Body mass index (BMI) 23.0-23.9, [...] say Food Preferences: Breakfast sausages, spiced ham, [place] Islander cheese, mayonnaise, lettuce, tomato, Belarusian bread, potatochips, Cheese Doodles, yellow and white [...] Description 10/30/2024 1:30 PM EST Clinical Support [facility] DIABETES/NUTRITION [address] [place] [phone] [place] [address] 11/23/2024 9:30 AM EDT Office Visit [facility] MEDICINE [address] [place] [address] Lalita Owens MD [address] [place] [address] documented as of this encounter Visit Diagnoses Diagnosis Primary hypertension Unspecified essential hypertension Body mass index (BMI) 23.0-23.9, adult documented in this encounter Additional Health Concerns Assessment Noted Time PHQ-9 Depression Total Score: 7 11/01/19 24 10:28 AM EST documented as of this encounter Care Teams Street Car Mechanic Relationship Specialty Start Date End Date Lalita Owens MD [address] [place] [phone] PCP - General Internal Medicine 09/23/23 documented as of this encounter
--- OUTSIDE RECORDS SUMMARY | 2024-10-23 16:38 | XMS_ITS | Clinical Summary ---
Author Organization [employer] Address [address] [place] [address] 7 [place] [address] Care Team Providers Care Equipment Superintendent Name Role Phone Lalita Owens MD Primary Care Provide r Allergies Active Allergy Reactions Criticality Noted Date Comments Peanut-Containing Drug Products 08/30 Penicillins 11/01/2023 Medications ergocalciferol (Vitamin D2) 1.25 MG (42585 UT) capsuleIndicatio ns:Primary hypertension TAKE 1 CAPSULE [...] repeat her ultrasound again by 10/19/2024 at [facility]. Assessment & Plan (08/15/2024 2:01 PM [...] Encounters Date Type Department Care Team Description 10/23/2024 Orders Only GENERIC EXTERNAL DATA DEPARTMENT Provider, Generic External Data 10/11/2024 Orders Only GENERIC EXTERNAL DATA DEPARTMENT Provider, Generic External Data 10/09/2024 Refill [facility] [address] [place] [phone] Lalita Owens MD Peptic ulcer; Primary hypertension; Hand eczema 10/02/2024 1:00 PM EST Nutrition [facility] [address] [place] [phone] Primary hypertension; Body mass index (BMI) 23.0-23.9, adult 10/02/2024 Travel 09/06/2024 Orders Only [facility] External Provider, [facility] 08/23/2024 Telephone [facility] [address] [place] [phone] Lalita Owens MD 08/10/2024 1:45 PM EST Office Visit [facility] [address] [place] [phone] Reta Yu MD Alopecia areata (Primary Dx) 08/10/2024 11:00 AM EST Office Visit [facility] [address] [place] [phone] Lalita Owens MD Hemorrhoids, unspecified hemorrhoid type (Primary Dx); Other constipation; Primary hypertension; Body mass index (BMI) 23.0-23.9, adult; Encounter for screening mammogram for malignant neoplasm of breast; Nontoxic multinodular goiter; Encounter for immunization 08/10/2024 Telephone [facility] [address] [place] [address] Raquel Beyer MA Durable Medical Equipment 08/10/2024 Travel 07/31/2024 Orders Only [facility] External Provider, [facility] from Last 3 Months Immunizations Name Administration [...] the past 12 months, has t he [employer], gas, oil or water company threatened to [...] Description 10/30/2024 1:30 PM EST Clinical Support [facility] [address] [place] [phone] [address], VARSHA [address] [place] [address] 11/23/2024 9:30 AM EDT Office Visit [facility] [address] [place] [phone] Lalita Owens MD [address] [place] [phone] Health Maintenance Due Date Last Done Comments [...] Procedure Name Priority Date/Time Associated Diagnosis Comments COMPREHENSIVE METABOLIC PANEL Routine 10/23/2024 1:25 PM EST CBC WITH AUTO DIFFERENTIAL Routine 10/23/2024 1:25 PM EST GROSS AND MICROSCOPIC LEVEL 3 Routine 10/11/2024 11:55 AM EST BD DEXA AXIAL Routine 09/06/2024 10:30 AM EST US THYROID Routine 07/31/2024 10:55 AM EST LAB COLOGUARD?? COLON CANCER SCREEN Routine 11/29/2023 12:01 AM EDT Colon cancer screening LIPID PANEL, STANDARD Routine 11/04/2023 11:30 AM EST Primary hypertension from Last 3 Months or Most Recently Relevant to Health Maintenance Results * (ABNORMAL) CBC auto differential (10/23/2024 1:25 PM EST) White Blood Count 4.6(L) 4.8 - 10.8 X10*3/uL [facility] Red Blood Count 4.11(L) 4.20 - 5.50 X10*6/uL [facility] Hemoglobin 12.6 12.0 - 16.0 g/dl [facility] Hematocrit 40.0 37.0 - 47.0 % [facility] Mean Corpuscular Volume 97.3 80.0 - 98.0 fL [facility] Mean Corpuscular Hemoglobin 30.7 27.0 - 33.0 pg [facility] Mean Corpuscular HGB Conc 31.5 31.0 - 35.0 g/dl [facility] Red Cell Distribution Width 11.9 11.0 - 16.0 % [facility] Platelet Count 350 160 - 400 X10*3/uL [facility] Mean Platelet Volume 10.2 9.4 - 12.3 fL [facility] Neutrophils Percent Auto 41.0(L) 45 - 73 % [facility] Imm Gran Pct Auto 0.2 0.0 - 0.4 % [facility] Lymphocytes Percent Auto 44.6(H) 20 - 40 % [facility] Monocytes Percent Auto 10.8 2 - 11 % [facility] Eosinophils Percent Auto 2.8 0 - 4 % [facility] Basophils Percent Auto 0.6 0 - 2 % [facility] NRBC Pct Auto 0.0 0.0 - 0.2 /100WBC [facility] Neutrophils Absolute Auto 1.9(L) 2.0 - 8.3 x10*3/uL [facility] Imm Gran Abs Auto 0.01 0.00 - 0.03 X10*3/uL [facility] Lymphocytes Absolute Auto 2.1 1.2 - 4.9 X10*3/uL [facility] Monocytes Absolute Auto 0.5 0.1 - 1.2 X10*3/uL [facility] Eosinophils Absolute Auto 0.1 0.0 - 0.4 X10*3/uL [facility] Basophils Absolute Auto 0.0 0.0 - 0.2 X10*3/uL [facility] NRBC Abs Auto 0.000 0.0 - 0.012 X10*3/uL [facility] 10/23/2024 1:25 PM EST 10/23/2024 1:31 PM EST us Generic External Data Provider LAB BLOOD ORDERAB LES Final Result [facility] [address] [place] [phone] * (ABNORMAL) Comprehensive Metabolic Panel (10/23/2024 1:25 PM EST) Sodium 141 135 - 145 mmol/L [facility] Potassium 4.7 3.3 - 5.1 mmol/L [facility] Chloride 104 96 - 108 mmol/L [facility] Carbon Dioxide 28 22 - 29 mmol/L [facility] Anion Gap 14 12 - 20 [facility] Urea Nitrogen (BUN) 15 9 - 16 mg/dL [facility] Creatinine, Serum 0.79 0.5 - 1.4 mg/dL [facility] Creatinine Clr Calc Pharmacy 45.4 [facility] Comment:Provided height and weight: 149.86 cm,52.163 kg.eGFR (calculated from the MDRD study equation) and eCrCl(calculated from the Cockcroft-Gault equation) are based ondifferent parameters and may not yield comparable results.If eCrCl result is absurd, please check patient'sheight/weight. Estimated Glomerular Filt Rate >60 [facility] Comment:Chronic Kidney Disea se: Estimated GFR < 60 mL/min/[id number] Kidney Disease: Estimated GFR < 15 mL/min/1.73m2 Glucose 102 60 - 115 mg/dL [facility] Calcium 10.2 8.4 - 10.2 mg/dL [facility] Bilirubin, Total 0.5 0.0 - 1.0 mg/dL [facility] Aspartate Amino Transferase 30 5 - 31 U/L [facility] Alanine Aminotransferase 37(H) 0 - 31 U/L [facility] Total Protein 7.9 6.5 - 8.0 g/dL [facility] Albumin Level 4.2 3.5 - 5.0 g/dL [facility] Alkaline Phosphatase 174(H) 39 - 117 U/L [facility] 10/23/2024 1:25 PM EST 10/23/2024 1:31 PM EST us Generic External Data Provider LAB BLOOD ORDERAB LES Final Result Performing Organization Address City/State/[facility] Co de Phone Number [facility] [address] [place] [phone] * Gross and Microscopic Level 3 (10/11/2024 11:55 AM EST) 10/11/2024 11:5 5 AM EST 10/11/2024 12:42 PM EST Narrative [facility] - 10/12/2024 4:30 PM EST ----- ------- Name: Nathaly Montero ?Age/Sex: 74/F ? : 1950 Unit#: [id number] ?? Attend Dr: Yovany Randolph MD ?Re10/11/24 ?Status: DEP SDC ? Location: HO.SSS ?Disch: ? ----- ------- SPEC : [id number] ?RECD: 10/11/24-1241 ? STATUS: ??SOUT ? REQ NUM: [id number] ? CLARK: 10/11/24-1157 ? SUBM DR: Yovany Randolph MD ? ENTERED: ??10/11/24-1246 ?SP TYPE: Surgical ? OTHR DR: Lalita Owens MD ? ORDERED: ??Gross Micro L3 ? Diagnosis ?? Soft tissue, ?hemorrhoids,? excision: ??Skin/squamous mucosa and anorectal mucosa with ?? dilated and thrombosed vessels, consistent with hemorrhoids. ?Clinical History Unspecified hemorrhoids ?Microscopic Description Microscopic sections reviewed. ? Material Received ?? Hemorrhoids ? Gross Description Received in formalin labeled ?hemorrhoids? are 3 pieces of red-pink and blue pink glabrous skin and anal mucosa ranging from 2.4-4.5 cm in greatest dimension, together measuring 5.5 x 3.5 x 1.2 cm. ??Sectioning reveals a red-pink cut surface with a few dilated, blood-filled vessels. ??A credit representative section from each of the 2 smaller specimens are submitted in cassette A1, 2 pieces. ??Net Solutions Architect sections from the larger portion of tissue are submitted in cassette A2, 2 pieces. [facility] Copies To: ?? Lalita Owens MD ?? [facility] ?? [address] ?? [place] [address] ?? [phone] ?? Yovany Randolph MD ?? [facility] Sur[facility] ?? [address] ?? [place] [address] ?? [phone] ?? [email or web address] ? CONTINUED ON NEXT PAGE ----- ------- Name: Nathaly Montero ?Age/Sex: 74/F ? : 1950 Unit#: [id number] ?? Attend Dr: Yovany Randolph MD ?Re10/11/24 ?Status: [facility] ? Location: HO.SSS ?Disch: ? ----- ------- SPEC : [id number] ?RECD: 10/11/24 ? STATUS: ??SOUT ? REQ NUM: [id number] ? CLARK: 10/11/24-6575 ? SUBM DR: Yovany Randolph MD ? ENTERED: ??10/11/24 ?SP TYPE: Surgical ? OTHR : Lalita Owens MD ? ORDERED: ??Gross Micro L3 ? ----- ------- Signed (signature on file) Jerrell Friedman MD 10/12/24 1630 ? ----- ------- ? END OF REPORT ? us Generic External Data Provider LAB CYTOLOGY ORDE RABEPIFANIO Final Result [facility] [address] [place] [phone] * BD DEXA Axial (09/06/2024 10:30 AM EST) Anatomical Region Laterality Modality Body Radiographic Mima ging 09/06/2024 10:3 0 AM EST Narrative 09/10/2024 9:42 AM EST ? [facility] ? [address] ?[place] [address] ? Mammography Report ? Signed ? Patient: Nathaly Montero ?MR#: [id number] ?? [id number] ? : 1950 ?Acct:[id number] ? Age/Sex: 74 / F ?ADM Date: //25 ? Loc: HO.MAMMO ? Attending Dr: Wild Ventura DO, ? Ordering Physician: WILD VENTURA DO ?Results: ? Date of Service: 09/06/24 ?Follow Up: ? Procedure(s): XR DEXA axial skeleton ?? Accession Number(s): [id number] ? cc: Lalita Owens MD; WILD VENTURA DO ? EXAMINATION: ??Dual-Energy X-ray Absorptiometry - Bone Density Study ? 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 TECHNIQUE: Xiimo Dual energy absorptiometry (DEXA) ?? of the [...] DD/ 1030 ? TD/TT: 09/06/24 1058 ? Filtration Operator: ? Procedure Note Jose Fter, Image - 09/10/2024 [facility] [address] [place] [address] Mammography Report Signed Patient: Nathaly MonteroMR#: [id number] : 9Acct:[id number] Age/Sex: 74 / FADM Date: 09/06/24 Loc: PEPE Attending Dr: Wild Ventura DO, MD Ordering Physician: WILD VENTURAults: Date of Service: 09/06/24Follow Up: Procedure(s): XR DEXA axial skeleton Accession Number(s): [id number] cc: Lalita Owens MD; WILD VENTURA DO EXAMINATION: Dual-Energy X-ray Absorptiometry - Bone Density Study HISTORY: Estrogen deficiency TECHNIQUE: Xiimo Dual energy absorptiometry (DEXA) of the lumbar [...] Popeye Gomez MD 09/10/2024 09:39 AM EST RP Dictated By: Popeye Gomez MD Signed By: <Electronically signed by Popeye Gomez MD in OV> 09/10/24 0939 DD/ 1030 TD/TT: 09/06/24 1058 Filtration Operator: [facility] External Provider IMG DXA PROCEDURES Edited Result - Final * US Thyroid (07/31/2024 10:55 AM EST) Anatomical Region Laterality Modality Head, Neck Ultrasound 07/31/2024 10:5 5 AM EST Narrative 08/03/2024 10:08 AM EST ? [facility] ?[address] ?[place] [address] ? Ultrasound Report ? Signed ? Patient: Nathaly Montero ?MR#: [id number] ?? [id number] ? : 1950 ?Acct:[id number] ? Age/Sex: 74 / F ?ADM Date: 07/31/24 ? Loc: HO.US ? Attending Dr: Wild Ventura DO, MD ? Ordering Physician: WILD VENTURA DO ?? Date of Service: 07/31/24 ?? Procedure(s): US thyroid ?? Accession Number(s): [id number] ? cc: Lalita Owens MD; WILD VENTURA DO ? EXAMINATION: ?? US THYROID [...] or equal to 1 cm: 0. ?? Net Solutions Architect nodules are described as follows: ? 1. [...] 10:05 AM EST RP ? Dictated By: ?Jareth,Jonathan ? Signed By: ?<Electronically signed by Jonathan Temple[place] in OV> ?08/03/24 1005 ? DD/ 1055 ? TD/TT: 07/31/24 1117 ? Filtration Operator: ? Procedure Note Fransisco Stovall - 08/03/2024 [facility] [address] [place] [address] Ultrasound Report Signed Patient: Nathaly Montero#: [id number] : 9Acct:[id number] Age/Sex: 74 / FADM Date: 07/31/24 Loc: HO.US Attending Dr: Wild Ventura DO, MD Ordering Physician: WILD VENTURA DO Date of Service: 07/31/24 Procedure(s): US thyroid Accession Number(s): [id number] cc: Lalita Owens MD; WILD VENTURA DO [...] than or equal to 1 cm: 0. Net Solutions Architect nodules are described as follows: 1. Location: [...] by: Jonathan Templeton MD 08/03/2024 10:05 AM EST Dictated By: Jonathan Templeton Signed By: <Electronically signed by Jonathan Templeton in OV> 08/03/24 1005 DD/ 1055 TD/TT: 07/31/24 1117 Filtration Operator: [facility] External Provider IMG US PROCEDURES Edited Result - Final * Cologuard?? colon cancer screening (11/29/2023 12:01 AM EDT) Cologuard Result Negative Negative 12/04/19 6:00 PM EDT [facility] (CLIA #:[id number]) Comment: NEGATIVE TEST RESULT. A negative Cologuard [...] (Gisela Monroe al, N Engl J Med 2014;370(14):1286- 1297) The normal value (reference range) for this assay is negative. COLOGUARD RE-SCREENING RECOMMENDATION: Periodic colorectal cancer screening is an important part of preventive healthcare for asymptomatic individuals at average risk for colorectal cancer. ??Following a negative Cologuard result, the [place] Cancer Society and U.S. Multi-Society Task Force screening guidelines recommend a Cologuard re-screening interval of 3 years. References: [place] [employer] Guideline for Colorectal Cancer Screening: https://www.cancer.org/cancer/kyuqu-dhpbiy-bvommk/vcsaxsszb-vgyssxqwq-oehroyl/ac s-rec ommendations.html.; Bryson HOU, Aliza VIEIRA, Nicolsa VILLAVICENCIO, Colorectal Cancer Screening: Recommendations for Physicians and Patients from the U.S. Multi-Society Task Force on Colorectal Cancer Screening , Am J Gastroenterology 2017; 112:6656-1720. TEST DESCRIPTION: Composite algorithmic analysis of stool [...] Cameron et al, N Engl J Med 2014;370(14):9776-5358.) Cologuard may produce a false negative or false positive result (no colorectal cancer or precancerous polyp present at colonoscopy follow up). A negative Cologuard test result does not guarantee the absence of CRC or advanced adenoma (pre-cancer). The current Cologuard screening interval is every 3 years. ([place] Cancer Society and U.S. Multi-Society Task Force). Cologuard performance data in a 10,000 patient pivotal study using colonoscopy as the reference method can be accessed at the following location: www.StarBlock.com.com/results. Additional description of the Cologuard test process, warnings and precautions can be found at www.cologdbTwangrd.com. Stool specimen (specimen) Rectal contents / Unknown 11/29/2023 12:01 AM EDT 12/01/2023 10:59 AM EDT us Lalita Rodriguez MD LAB MOLECULAR DIAGNOS TICS ORDERABLES Final Result [facility] (CLIA #:[id number]) [place] [address], [place] [phone] * (ABNORMAL) Lipid Panel, Standard (11/04/2023 11:30 AM EST) Triglycerides 111 <150 mg/dL [facility] Comment:Desirable Triglyceri de: less than 150 mg/dLBorderline High Triglyceride 150-199 mg/dLHigh Triglyceride: 200-499 mg/dLVery High Triglyceride: greater than or equal to 5OO mg/dL Cholesterol 183 <200 mg/dL [facility] Comment:Desirable Cholestero l: less than 200 mg/dLBorderline High Cholesterol: 200-239 mg/dLHigh Cholesterol: greater than 239 mg/dL LDL Cholesterol Calculated 103(H) <100 mg/dL [facility] Comment:Desirable LDL: less than 100 mg/dLNear Optimal/Above Optimal LDL: 110- 129 mg/dLBorderline High LDL: 130-159 mg/dLHigh LDL: 160-189 mg/dLVery High LDL: greater than or equal to 190 mg/dL HDL Cholesterol 58 >40 mg/dL [facility] Comment:Desirable HDL: great er than 40 mg/dL Note: This HDL assay may give artificially low results in patients with liver disease. Blood Venous blood specimen / Unknown 11/04/2023 11:30 AM EST 11/04/2023 12:56 PM EST Lalita Rodriguez MD LAB BLOOD ORDERABLES Final Result [facility] [address] [place] [address] [phone] from Last 3 Months or Most Recently Relevant to Health Maintenance Insurance [facility] Care Teams Equipment Superintendent Relationship Specialty Start Date End Date Lalita Owens MD [address] [place] [phone] PCP - General Internal Medicine 09/23/23
--- OUTSIDE RECORDS SUMMARY | 2024-10-23 16:38 | XMS_ITS | Encounter Summary ---
Author Organization [employer] Address [address] [facility] 7 [place] [address] Care Team Providers Care Technical Support Engineer Name Role Phone Lalita Owens MD Primary Care Provide r Encounter Details Date Type Department Care Team (Late st Contact Info) Description 10/11/2024 Orders Only GENERIC EXTERNAL DATA DEPARTMENT Provider, Generic External Data Social History Tobacco Use Types Packs/Day Years [...] Description 10/30/2024 1:30 PM EST Clinical Support [facility] [address] [place], [place] [phone] [place] [address] 11/23/2024 9:30 AM EDT Office Visit [facility] [address] [place] [phone] Lalita Owens MD [address] [place], [place] [phone] documented as of this encounter Procedures Procedure Name Priority Date/Time Associated Diagnosis Comments GROSS AND MICROSCOPIC LEVEL 3 Routine 10/11/2024 11:55 AM EST documented in this encounter Results * Gross and Microscopic Level 3 (10/11/2024 11:55 AM EST) 10/11/2024 11:5 5 AM EST 10/11/2024 12:42 PM EST [facility] - 10/12/2024 4:30 PM EST ----- ------- Name: Nathaly Montero ?Age/Sex: 74/F ? : 1950 Unit#: [id number] ?? Attend Dr: Yovany Randolph MD ?Re10/11/24 ?Status: DEP SDC ? Location: HO.SSS ?Disch: ? ----- ------- SPEC : [id number] ?RECD: 10/11/24 ? STATUS: ??SOUT ? REQ NUM: [id number] ? CLARK: 10/11/24-8 ? SUBM DR: Yovany Randolph MD ? ENTERED: ??10/11/24 ?SP TYPE: Surgical ? OTHR DR: Lalita [...] with a few dilated, blood-filled vessels. ??A printing supplies sales representative section from each of the 2 smaller specimens are submitted in cassette A1, 2 pieces. ??Duplication Specialist sections from the larger portion of tissue are submitted in cassette A2, 2 pieces. [facility] Copies To: ?? Lalita Owens MD ?? [facility] ?? [address] ?? [place] [address] ?? [phone] ?? Yovany Randolph MD ?? [facility] General Surgeons ?? [address] ?? [place] [address] ?? [phone] ?? [email or web address] ? CONTINUED ON NEXT PAGE ----- ------- Name: Nathaly Montero ?Age/Sex: 74/F ? : 1950 Unit#: [id number] ?? Attend Dr: Yovany Randolph MD ?Re10/11/24 ?Status: DEP SDC ? Location: HO.SSS ?Disch: ? ----- ------- SPEC : [id number] ?RECD: 10/11/24-1241 ? STATUS: ??SOUT ? REQ NUM: [id number] ? CLARK: 10/11/243 ? SUBM DR: Yovany Randolph MD ? ENTERED: ??10/11/24 ?SP TYPE: Surgical ? OTHR DR: Lalita Owens MD ? ORDERED: ??Gross Micro L3 ? ----- ------- Signed (signature on file) Jerrell Friedman MD 10/12/24 1630 ? ----- ------- ? END OF REPORT ? us Generic External Data Provider LAB CYTOLOGY AURA HINDS Final Result [facility] [address] [place] [address] [phone] documented in this encounter Visit Diagnoses Not on filedocumented in this encounter Additional Health Concerns Assessment Noted Time PHQ-9 Depression Total Score: 7 11/01/19 24 10:28 AM EST documented as of this encounter Care Teams Technical Support Engineer Relationship Specialty Start Date End Date Lalita Owens MD [address] [place] [address] PCP - General Internal Medicine 09/23/23 documented as of this encounter
--- OUTSIDE RECORDS SUMMARY | 2024-10-23 16:38 | XMS_ITS | Encounter Summary ---
Author Organization [employer] Address [address] [facility] 7 [place] [address] Care Team Providers Care Mine Exploration Engineer Name Role Phone Lalita Owens MD Primary Care Provide r Encounter Details Date Type Department Care Team (Late st Contact Info) Description 10/23/2024 Orders Only GENERIC EXTERNAL DATA [...] Description 10/30/2024 1:30 PM EST Clinical Support [facility] DIABETES/NUTRITION [address] [place], [place] [phone] [place], [place] [phone] 11/23/2024 9:30 AM EDT Office Visit [facility] MEDICINE [address] [place], [place] [phone] Lalita Owens MD [address] [place], [place] [phone] documented as of this encounter Procedures Procedure Name Priority Date/Time Associated Diagnosis Comments CBC WITH AUTO DIFFERENTIAL Routine 10/23/2024 1:25 PM EST COMPREHENSIVE METABOLIC PANEL Routine 10/23/2024 1:25 PM EST documented in this encounter Results * (ABNORMAL) Comprehensive Metabolic Panel (10/23/2024 1:25 PM EST) Sodium 141 135 - 145 mmol/L [facility] Potassium 4.7 3.3 - 5.1 mmol/L [facility] Chloride 104 96 - 108 mmol/L [facility] Carbon Dioxide 28 22 - 29 mmol/L [facility] Anion Gap 14 12 - 20 [facility] Urea Nitrogen (BUN) 15 9 - 16 mg/dL [facility] Creatinine, Serum 0.79 0.5 - 1.4 mg/dL [facility] Creatinine Clr Calc Pharmacy 45.4 [facility] Comment:Provided height and weight: 149.86 cm,52.163 kg.eGFR (calculated from the MDRD study equation) and eCrCl(calculated from the Cockcroft-Gault equation) are based ondifferent parameters and may not yield comparable results.If eCrCl result is absurd, please check patient'sheight/weight. Estimated Glomerular Filt Rate >60 [facility] Comment:Chronic Kidney Disea se: Estimated GFR < 60 mL/min/1.17s6Owhanq Kidney Disease: Estimated GFR < 15 mL/min/1.73m2 Glucose 102 60 - 115 mg/dL [facility] Calcium 10.2 8.4 - 10.2 mg/dL [facility] Bilirubin, Total 0.5 0.0 - 1.0 mg/dL [facility] Aspartate Amino Transferase 30 5 - 31 U/L [facility] Alanine Aminotransferase 37(H) 0 - 31 U/L [facility] Total Protein 7.9 6.5 - 8.0 g/dL [facility] Albumin Level 4.2 3.5 - 5.0 g/dL [facility] Alkaline Phosphatase 174(H) 39 - 117 U/L [facility] 10/23/2024 1:25 PM EST 10/23/2024 1:31 PM EST us Generic External Data Provider LAB BLOOD ORDERAB LES Final Result [facility] [address] [place] [address] [phone] * (ABNORMAL) CBC auto differential (10/23/2024 1:25 PM EST) White Blood Count 4.6(L) 4.8 - 10.8 X10*3/uL [facility] Red Blood Count 4.11(L) 4.20 - 5.50 X10*6/uL [facility] Hemoglobin 12.6 12.0 - 16.0 g/dl [facility] Hematocrit 40.0 37.0 - 47.0 % [facility] Mean Corpuscular Volume 97.3 80.0 - 98.0 fL [facility] Mean Corpuscular Hemoglobin 30.7 27.0 - 33.0 pg [facility] Mean Corpuscular HGB Conc 31.5 31.0 - 35.0 g/dl [facility] Red Cell Distribution Width 11.9 11.0 - 16.0 % [facility] Platelet Count 350 160 - 400 X10*3/uL [facility] Mean Platelet Volume 10.2 9.4 - 12.3 fL [facility] Neutrophils Percent Auto 41.0(L) 45 - 73 % [facility] Imm Gran Pct Auto 0.2 0.0 - 0.4 % [facility] Lymphocytes Percent Auto 44.6(H) 20 - 40 % [facility] Monocytes Percent Auto 10.8 2 - 11 % [facility] Eosinophils Percent Auto 2.8 0 - 4 % [facility] Basophils Percent Auto 0.6 0 - 2 % [facility] NRBC Pct Auto 0.0 0.0 - 0.2 /100WBC [facility] Neutrophils Absolute Auto 1.9(L) 2.0 - 8.3 x10*3/uL [facility] Imm Gran Abs Auto 0.01 0.00 - 0.03 X10*3/uL [facility] Lymphocytes Absolute Auto 2.1 1.2 - 4.9 X10*3/uL [facility] Monocytes Absolute Auto 0.5 0.1 - 1.2 X10*3/uL [facility] Eosinophils Absolute Auto 0.1 0.0 - 0.4 X10*3/uL [facility] Basophils Absolute Auto 0.0 0.0 - 0.2 X10*3/uL [facility] NRBC Abs Auto 0.000 0.0 - 0.012 X10*3/uL [facility] 10/23/2024 1:25 PM EST 10/23/2024 1:31 PM EST us Generic External Data Provider LAB BLOOD ORDERAB LES Final Result [facility] [address] [place] [phone] documented in this encounter Visit Diagnoses Not on filedocumented in this encounter Additional Health Concerns Assessment Noted Time PHQ-9 Depression Total Score: 7 11/01/19 24 10:28 AM EST documented as of this encounter Care Teams Mine Exploration Engineer Relationship Specialty Start Date End Date Lalita Owens MD [address] [place] [address] PCP - General Internal Medicine 09/23/23 documented as of this encounter
[2024-10-23] MEDS: Morphine Sulfate Immed Release 15 MG TABLET PO (18:01)
[2024-10-23 18:28] VITALS: BP 155/77; PULSE 76; RESP 20; TEMP 36.6; O2SAT 97
[2024-10-23 18:44] VITALS: BP 155/77; PULSE 76; RESP 20; TEMP 36.6; O2SAT 97
== END 2024-10-23 18:45 | disposition home or self-care (01) ==
PROVIDERS: Registered Nurse Emergency; Emergency Provider Emergency Medicine; PCP Internal Medicine
DX: K62.89 Other specified diseases of anus and rectum (principal); R10.2 Pelvic and perineal pain; R11.2 Nausea with vomiting, unspecified; F17.210 Nicotine dependence, cigarettes, uncomplicated; Z79.899 Other long term (current) drug therapy
CPT/HCPCS: 36415; 80053; 85025; 99283

== ENCOUNTER 2024-10-24 10:20 | Outpatient (AMB) | payer OTHER, SELFPAY ==
--- NOTE | 2024-10-24 10:21 | A.OFFVIS_ITS ---
Intake Visit Reasons: S/P hemorrhoidectomy Intake Note: Patient her s/p hemorrhoidectomy. Reports incision healing well. Patient c/o: irritation, discomfort. Noticed blood when wiping after BM. Taking Tylenol as needed. Surgery: 10-11-2024 Occupational Therapy Technician Required: No Accompanied by: Spouse Allergies hydrocodone Allergy (Verified 10/24/24 10:27) Fatigued Penicillins Allergy (Verified 10/24/24 10:27) Unknown HPI Comments Details: Patient presents for follow-up. Aside from incisional discomfort which was quite severe but is slowly but steadily improving she otherwise doing okay. She has been constipated but is remedying this with stool softeners. She has weaned herself off the narcotics. [facility] Medical History (Updated 10/24/24 @ 00:00 by Toan Mohan) Encounter for screening mammogram for malignant neoplasm of breast Constipation Vitamin D deficiency Non-toxic multinodular goiter Elevated alkaline phosphatase level Colon cancer screening Peptic ulcer Hemorrhoids Enlarged thyroid Primary hypertension Alopecia areata Uterine prolapse Surgical History (Updated 10/24/24 @ 11:20 by Yovany Randolph MD) H/O hemorrhoidectomy (10/11/24) Social History Are you a primary healthcare economics manager to a significant other at home: No Do you presently have visiting nurse or other home services: No Alcohol intake: current Alcohol intake frequency: holidays/special occasions only Patient Tobacco Use Status: Current everyday Tobacco user Tobacco use type: Cigarette Cigarettes Per Day: 3 Physical Exam GI Other: Anorectal wound healing very well. Assessment & Plan Assessment & Plan (1) Status post hemorrhoidectomy: Code(s): Z98.890 - Other specified postprocedural states; Z87.19 - Personal history of other diseases of the digestive system Category: Medical Plan Patient is encouraged to take nonsteroidal anti-inflammatory meds as needed, Sitz baths, avoid strenuous activities, and will see me as directed or p.r.n.. All questions answered. Coding Level of Care Code Global (81794) Diagnoses Status post hemorrhoidectomy Z98.890; Z87.19
--- OUTSIDE RECORDS SUMMARY | 2024-10-24 12:36 | XMS_ITS | Encounter Summary ---
Author Organization [employer] Address [address] [facility] [address] [place] [address] Care Team Providers Care Women'S Apparel Salesperson Name Role Phone Lalita Owens MD Primary [...] Description 10/30/2024 1:30 PM EST Clinical Support [facility] DIABETES/NUTRITION [address] [place] [phone] [place] [address] 11/23/2024 9:30 AM EDT Office Visit [facility] MEDICINE [address] [place] [address] Lalita Owens MD [address] [place] [address] documented as of this encounter Visit Diagnoses Not on filedocumented in this encounter Additional Health Concerns Assessment Noted Time PHQ-9 Depression Total Score: 7 11/01/19 10:28 AM EST documented as of this encounter Care Teams Women'S Apparel Salesperson Relationship Specialty Start Date End Date Lalita Owens MD [address] [place] [phone] PCP - General Internal Medicine 09/23/23 documented as of this encounter
--- OUTSIDE RECORDS SUMMARY | 2024-10-24 12:36 | XMS_ITS | Clinical Summary ---
Author Organization [employer] Address [address] [place] [address] 7 [place] [address] Care Team Providers Care Oracle Manager Name Role Phone Lalita Owens MD Primary Care Provide r Allergies Active Allergy Reactions Criticality Noted Date Comments Peanut-Containing Drug Products 08/30 Penicillins 11/01/2023 Medications ergocalciferol (Vitamin D2) 1.25 MG (12377 UT) capsuleIndicatio ns:Primary hypertension TAKE 1 CAPSULE [...] repeat her ultrasound again by 10/19/2024 at [facility]. Assessment & Plan (08/15/2024 2:01 PM [...] DEPARTMENT Provider, Generic External Data 10/09/2024 Refill [facility] [address] [place] [phone] Lalita Owens MD Peptic ulcer; Primary hypertension; Hand eczema 10/02/2024 1:00 PM EST Nutrition [facility] DIABETES/NUTRITION [address] [place] [phone] Primary hypertension; Body mass index (BMI) 23.0-23.9, adult 10/02/2024 Travel 09/06/2024 Orders Only [facility] External Provider, [facility] 08/23/2024 Telephone [facility] [address] [place] [phone] Lalita Owens MD 08/10/2024 1:45 PM EST Office Visit [facility] MEDICINE [address] [place] [phone] Reta Yu MD Alopecia areata (Primary Dx) 08/10/2024 11:00 AM EST Office Visit [facility] MEDICINE [address] [place] [phone] Lalita Owens MD Hemorrhoids, unspecified hemorrhoid type (Primary Dx); Other constipation; Primary hypertension; Body mass index (BMI) 23.0-23.9, adult; Encounter for screening mammogram for malignant neoplasm of breast; Nontoxic multinodular goiter; Encounter for immunization 08/10/2024 Telephone [facility] MEDIC[facility] [address] [place] [address] Raquel Beyer [place] Durable Medical Equipment 08/10/2024 Travel 07/31/2024 Orders Only [facility] External Provider, [facility] from Last 3 Months Immunizations Name [...] the past 12 months, has t he [employer], gas, oil or water company threatened to [...] Description 10/30/2024 1:30 PM EST Clinical Support [facility] DIABETES/NUTRITION [address] [place] [phone] [address] Brothers, VARSHA [address] [place] [address] 11/23/2024 9:30 AM EDT Office Visit [facility] MEDICINE [address] [place] [phone] Lalita Owens MD [address] [place] [phone] Health Maintenance Due Date Last Done Comments [...] Blood Count 4.6(L) 4.8 - 10.8 X10*3/uL [facility] Red Blood Count 4.11(L) 4.20 - 5.50 X10*6/uL [facility] Hemoglobin 12.6 12.0 - 16.0 g/dl [facility] Hematocrit 40.0 37.0 - 47.0 % [facility] Mean Corpuscular Volume 97.3 80.0 - 98.0 fL [facility] Mean Corpuscular Hemoglobin 30.7 27.0 - 33.0 pg [facility] Mean Corpuscular HGB Conc 31.5 31.0 - 35.0 g/dl [facility] Red Cell Distribution Width 11.9 11.0 - 16.0 % [facility] Platelet Count 350 160 - 400 X10*3/uL [facility] Mean Platelet Volume 10.2 9.4 - 12.3 fL [facility] Neutrophils Percent Auto 41.0(L) 45 - 73 % [facility] Imm Gran Pct Auto 0.2 0.0 - 0.4 % [facility] Lymphocytes Percent Auto 44.6(H) 20 - 40 % [facility] Monocytes Percent Auto 10.8 2 - 11 % [facility] Eosinophils Percent Auto 2.8 0 - 4 % [facility] Basophils Percent Auto 0.6 0 - 2 % [facility] NRBC Pct Auto 0.0 0.0 - 0.2 /100WBC [facility] Neutrophils Absolute Auto 1.9(L) 2.0 - 8.3 x10*3/uL [facility] Imm Gran Abs Auto 0.01 0.00 - 0.03 X10*3/uL [facility] Lymphocytes Absolute Auto 2.1 1.2 - 4.9 X10*3/uL [facility] Monocytes Absolute Auto 0.5 0.1 - 1.2 X10*3/uL [facility] Eosinophils Absolute Auto 0.1 0.0 - 0.4 X10*3/uL [facility] Basophils Absolute Auto 0.0 0.0 - 0.2 X10*3/uL [facility] NRBC Abs Auto 0.000 0.0 - 0.012 X10*3/uL [facility] 10/23/2024 1:25 PM EST 10/23/2024 1:31 PM EST us Generic External Data Provider LAB BLOOD ORDERAB LES Final Result [facility] [address] [place] [phone] * (ABNORMAL) Comprehensive Metabolic Panel (10/23/2024 1:25 PM EST) Sodium 141 135 - 145 mmol/L [facility] Potassium 4.7 3.3 - 5.1 mmol/L [facility] Chloride 104 96 - 108 mmol/L [facility] Carbon Dioxide 28 22 - 29 mmol/L [facility] Anion Gap 14 12 - 20 [facility] Urea Nitrogen (BUN) 15 9 - 16 mg/dL [facility] Creatinine, Serum 0.79 0.5 - 1.4 mg/dL [facility] Creatinine Clr Calc Pharmacy 45.4 [facility] Comment:Provided height and weight: 149.86 cm,52.163 kg.eGFR (calculated from the MDRD study equation) and eCrCl(calculated from the Cockcroft-Gault equation) are based ondifferent parameters and may not yield comparable results.If eCrCl result is absurd, please check patient'sheight/weight. Estimated Glomerular Filt Rate >60 [facility] Comment:Chronic Kidney Disea se: Estimated GFR < 60 mL/min/1.58f4Uzucug Kidney Disease: Estimated GFR < 15 mL/min/1.73m2 Glucose 102 60 - 115 mg/dL [facility] Calcium 10.2 8.4 - 10.2 mg/dL [facility] Bilirubin, Total 0.5 0.0 - 1.0 mg/dL [facility] Aspartate Amino Transferase 30 5 - 31 U/L [facility] Alanine Aminotransferase 37(H) 0 - 31 U/L [facility] Total Protein 7.9 6.5 - 8.0 g/dL [facility] Albumin Level 4.2 3.5 - 5.0 g/dL [facility] Alkaline Phosphatase 174(H) 39 - 117 U/L [facility] 10/23/2024 1:25 PM EST 10/23/2024 1:31 PM EST us Generic External Data Provider LAB BLOOD ORDERAB LES Final Result Performing Organization Address City/State/[facility] Co de Phone Number [facility] [address] [place] [phone] * Gross and Microscopic Level 3 (10/11/2024 11:55 AM EST) 10/11/2024 11:5 5 AM EST 10/11/2024 12:42 PM EST Narrative [facility] - 10/12/2024 4:30 PM EST ----- ------- Name: Nathaly Montero ?Age/Sex: 74/F ? : 1950 Unit#: [id number] ?? Attend Dr: Yovany Randolph MD ?Re10/11/24 ?Status: DEP SDC ? Location: HO.SSS ?Disch: ? ----- ------- SPEC : [id number] ?RECD: 10/11/24-1241 ? STATUS: ??SOUT ? REQ NUM: [id number] ? CLARK: 10/11/24-1150 ? SUBM DR: Yovany Randolph MD ? [...] with a few dilated, blood-filled vessels. ??A healthcare sales representative section from each of the 2 smaller specimens are submitted in cassette A1, 2 pieces. ??Longwall Machine Operator Helper sections from the larger portion of tissue are submitted in cassette A2, 2 pieces. [facility] Copies To: ?? Lalita Owens MD ?? [facility] ?? [address] [address] ?? [place] [address] ?? [phone] ?? Yovany Randolph MD ?? [facility] ?? [address] ?? [place] [address] ?? [phone] ?? [email or web address] ? CONTINUED ON NEXT PAGE ----- ------- Name: Nathaly Montero ?Age/Sex: 74/F ? : 1950 Unit#: [id number] ?? Attend Dr: Yovany Randolph MD ?Re10/11/24 ?Status: DEP [facility] ? Location: HO.SSS ?Disch: ? ----- ------- SPEC : [id number] ?RECD: 10/11/24 ? STATUS: ??SOUT ? REQ NUM: [id number] ? CLARK: 10/11/24-5512 ? SUBM DR: Yovany Randolph MD ? ENTERED: ??10/11/24 ?SP TYPE: Surgical ? OTHR : Lalita Owens MD ? ORDERED: ??Gross Micro L3 ? ----- ------- Signed (signature on file) Jerrell Friedman MD 10/12/24 1630 ? ----- ------- ? END OF REPORT ? us Generic External Data Provider LAB CYTOLOGY ORDE RABEPIFANIO Final Result [facility] [address] [facility] [place] [phone] * BD DEXA Axial (09/06/2024 10:30 AM EST) Anatomical Region Laterality Modality Body Radiographic Mima ging 09/06/2024 10:3 0 AM EST Narrative 09/10/2024 9:42 AM EST ? [facility] ? [address] ?[place] [address] ? Mammography Report ? Signed ? Patient: Nathaly Montero ?MR#: [id number] ?? [id number] ? : 1950 ?Acct:[id number] ? Age/Sex: 74 / F ?ADM Date: //25 ? Loc: HO.MAMMO ? Attending Dr: Wild Ventura DO, ? Ordering Physician: WILD VENTURA DO ?Results: ? Date of Service: 09/06/24 ?Follow Up: ? Procedure(s): XR DEXA axial skeleton ?? Accession Number(s): [id number] ? cc: Lalita Owens MD; WILD VENTURA DO ? EXAMINATION: ??Dual-Energy X-ray Absorptiometry - Bone Density Study ? 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 TECHNIQUE: [employer] Dual energy absorptiometry (DEXA) ?? of the [...] 1/3 radius. ? Electronically signed by: ??Popeye Gmoez MD ??09/10/2024 09:39 AM EST ?? RP ? Dictated By: ?Popeye Gomez MD ? Signed By: ?<Electronically signed by Popeye Gomez MD in OV> ?09/10/24 0939 ? DD/ 1030 ? TD/TT: 09/06/24 1058 ? Linseed Cake Trimmer: ? Procedure Note Jose Fter, Image - 09/10/2024 [facility] [address] [place] [address] Mammography Report Signed Patient: Nathaly MonteroMR#: [id number] : 9Acct:[id number] Age/Sex: 74 / FADM Date: 09/06/24 Loc: PEPE Attending Dr: Wild Ventura DO, MD Ordering Physician: WLID VENTURAults: Date of Service: 09/06/24Follow Up: Procedure(s): XR DEXA axial skeleton Accession Number(s): [id number] cc: Lalita Owens MD; WILD VENTURA DO EXAMINATION: Dual-Energy X-ray Absorptiometry - Bone Density Study HISTORY: Estrogen deficiency TECHNIQUE: [employer] Dual energy absorptiometry (DEXA) of the lumbar [...] 09/10/24 0939 DD/ 1030 TD/TT: 09/06/24 1058 Linseed Cake Trimmer: [facility] External Provider IMG DXA PROCEDURES Edited Result - Final * US Thyroid (07/31/2024 10:55 AM EST) Anatomical Region Laterality Modality Head, Neck Ultrasound 07/31/2024 10:5 5 AM EST Narrative 08/03/2024 10:08 AM EST ? [facility] ?[address] ?[place] [address] ? Ultrasound Report ? Signed ? Patient: Nathaly Montero ?MR#: [id number] ?? [id number] ? : 1950 ?Acct:[id number] ? Age/Sex: 74 / F ?ADM Date: 07/31/24 ? Loc: HO.US ? Attending Dr: Wild Ventura DO, MD ? Ordering Physician: WILD VENTURA DO ?? Date of Service: 07/31/24 ?? Procedure(s): US thyroid ?? Accession Number(s): [id number] ? cc: Lalita Owens MD; WILD VENTURA [...] or equal to 1 cm: 0. ?? Longwall Machine Operator Helper nodules are described as follows: ? 1. [...] DD/ 1055 ? TD/TT: 07/31/24 1117 ? Linseed Cake Trimmer: ? Procedure Note Fransisco Stovall - 08/03/2024 [facility] [address] [place] [address] Ultrasound Report Signed Patient: Nathaly Montero#: [id number] : 9Acct:[id number] Age/Sex: 74 / FADM Date: 07/31/24 Loc: HO.US Attending Dr: Wild Ventura DO, MD Ordering Physician: WILD VENTURA DO Date of Service: 07/31/24 Procedure(s): US thyroid Accession Number(s): [id number] cc: Lalita Owens MD; WILD VENTURA DO [...] than or equal to 1 cm: 0. Longwall Machine Operator Helper nodules are described as follows: 1. Location: [...] 08/03/24 1005 DD/ 1055 TD/TT: 07/31/24 1117 Linseed Cake Trimmer: [facility] External Provider IMG US PROCEDURES Edited Result - Final * Cologuard?? colon cancer screening (11/29/2023 12:01 AM EDT) Cologuard Result Negative Negative 12/04/19 6:00 PM EDT [employer] (CLIA #:[id number]) Comment: NEGATIVE TEST RESULT. A negative Cologuard [...] cancer. ??Following a negative Cologuard result, the British Cancer Society and U.S. Multi-Society Task Force screening guidelines recommend a Cologuard re-screening interval of 3 years. References: British Cancer Society Guideline for Colorectal Cancer Screening: https://www.cancer.org/cancer/hhfih-facgcr-zbbkdz/shajsunol-mbdhoafct-rzxssow/ac s-rec ommendations.html.; Bryson HOU, Aliza IVEIRA, Nicolas VILLAVICENCIO, Colorectal Cancer Screening: Recommendations for Physicians and Patients from the U.S. Multi-Society Task Force on Colorectal Cancer Screening , Am J Gastroenterology 2017; 112:1843-6751. TEST DESCRIPTION: Composite algorithmic analysis of stool [...] Cameron et al, N Engl J Med 2014;370(14):1023-8126.) Cologuard may produce a false negative or false positive result (no colorectal cancer or precancerous polyp present at colonoscopy follow up). A negative Cologuard test result does not guarantee the absence of CRC or advanced adenoma (pre-cancer). The current Cologuard screening interval is every 3 years. (British Cancer Society and U.S. Multi-Society Task Force). Cologuard performance data in a 10,000 patient pivotal study using colonoscopy as the reference method can be accessed at the following location: www.tagga.com/results. Additional description of the Cologuard test process, warnings and precautions can be found at www.cologIntelimax Mediard.com. Stool specimen (specimen) Rectal contents / Unknown 11/29/2023 12:01 AM EDT 12/01/2023 10:59 AM EDT us Lalita Rodriguez MD LAB MOLECULAR DIAGNOS TICS ORDERABLES Final Result [facility] (CLIA #:[id number]) [place] [address], [place] [phone] * (ABNORMAL) Lipid Panel, Standard (11/04/2023 11:30 AM EST) Triglycerides 111 <150 mg/dL [facility] Comment:Desirable Triglyceri de: less than 150 mg/dLBorderline High Triglyceride 150-199 mg/dLHigh Triglyceride: 200-499 mg/dLVery High Triglyceride: greater than or equal to 5OO mg/dL Cholesterol 183 <200 mg/dL [facility] Comment:Desirable Cholestero l: less than 200 mg/dLBorderline High Cholesterol: 200-239 mg/dLHigh Cholesterol: greater than 239 mg/dL LDL Cholesterol Calculated 103(H) <100 mg/dL [facility] Comment:Desirable LDL: less than 100 mg/dLNear Optimal/Above Optimal LDL: 110- 129 mg/dLBorderline High LDL: 130-159 mg/dLHigh LDL: 160-189 mg/dLVery High LDL: greater than or equal to 190 mg/dL HDL Cholesterol 58 >40 mg/dL [facility] Comment:Desirable HDL: great er than 40 mg/dL Note: This HDL assay may give artificially low results in patients with liver disease. Blood Venous blood specimen / Unknown 11/04/2023 11:30 AM EST 11/04/2023 12:56 PM EST Lalita Rodriguez MD LAB BLOOD ORDERABLES Final Result [facility] [address] [place] [address] [phone] from Last 3 Months or Most Recently Relevant to Health Maintenance Insurance [facility] Care Teams Oracle Manager Relationship Specialty Start Date End Date Lalita Owens MD [address] [place] [phone] PCP - General Internal Medicine 09/23/23
--- OUTSIDE RECORDS SUMMARY | 2024-10-24 12:36 | XMS_ITS | Encounter Summary ---
Author Organization [employer] Address [address] [facility] 7 [place] [address] Care Team Providers Care Case Making Machine Operator Name Role Phone Lalita Owens MD [...] Description 10/30/2024 1:30 PM EST Clinical Support [facility] DIABETES/NUTRITION [address] [place], [place] [phone] [place] [address] 11/23/2024 9:30 AM EDT Office Visit [facility] MEDICINE [address] [place] [address] Lalita Owens MD [address] [place], [place] [phone] documented as of this encounter Procedures Procedure Name Priority Date/Time Associated Diagnosis Comments GROSS AND MICROSCOPIC LEVEL 3 Routine 10/11/2024 11:55 AM EST documented in this encounter Results * Gross and Microscopic Level 3 (10/11/2024 11:55 AM EST) 10/11/2024 11:5 5 AM EST 10/11/2024 12:42 PM EST [facility] LABS - 10/12/2024 4:30 PM EST ----- ------- Name: Nathaly Montero ?Age/Sex: 74/F ? : 1950 Unit#: [id number] ?? Attend Dr: Yovany Randolph MD ?Re10/11/24 ?Status: DEP SDC ? Location: HO.SSS ?Disch: ? ----- ------- SPEC : [id number] ?RECD: 10/11/24 ? STATUS: ??SOUT ? REQ NUM: [id number] ? CLARK: 10/11/24-9 ? SUBM DR: Yovany Randolph MD ? [...] with a few dilated, blood-filled vessels. ??A tour sales representative section from each of the 2 smaller specimens are submitted in cassette A1, 2 pieces. ??Inspector Packer Glass Container sections from the larger portion of tissue are submitted in cassette A2, 2 pieces. [facility] Copies To: ?? Lalita Owens MD ?? [facility] ?? [address] ?? [place] [address] ?? [phone] ?? Yovany Randolph MD ?? [facility] General Surgeons ?? [address] ?? [place] [address] ?? [phone] ?? [email or web address] ? CONTINUED ON NEXT PAGE ----- ------- Name: Nathaly Montero ?Age/Sex: 74/F ? : 1950 Unit#: [id number] ?? Attend Dr: Yovany Randolph MD ?Re10/11/24 ?Status: DEP SDC ? Location: HO.SSS ?Disch: ? ----- ------- SPEC : [id number] ?RECD: 10/11/24-1241 ? STATUS: ??SOUT ? REQ NUM: [id number] ? CLARK: 10/11/242 ? SUBM DR: Yovany Randolph MD ? ENTERED: ??10/11/24 ?SP TYPE: Surgical ? OTHR DR: Lalita Owens MD ? ORDERED: ??Gross Micro L3 ? ----- ------- Signed (signature on file) Jerrell Friedman MD 10/12/24 1630 ? ----- ------- ? END OF REPORT ? us Generic External Data Provider LAB CYTOLOGY AURA HINDS Final Result [facility]S [address] [place] [address] [phone] documented in this encounter Visit Diagnoses Not on filedocumented in this encounter Additional Health Concerns Assessment Noted Time PHQ-9 Depression Total Score: 7 11/01/19 24 10:28 AM EST documented as of this encounter Care Teams Case Making Machine Operator Relationship Specialty Start Date End Date Lalita Owens MD [address] [place] [address] PCP - General Internal Medicine 09/23/23 documented as of this encounter
--- OUTSIDE RECORDS SUMMARY | 2024-10-24 12:36 | XMS_ITS | Encounter Summary ---
Author Organization [employer] Address [address] [place] [address] [facility] [place] [address] Care Team Providers Care Amusement Park Entertainer Name Role Phone Lalita Owens MD Primary Care Provide r Reason for Visit * Reason Onset Date Comments New Patient 09/08/2023 Encounter Details Date Type Department Care Team ([facility] st Contact Info) Description 09/08/2023 Telephone [facility] MEDICINE [address] [place] [address] Toney Leyva MD [address] [place], [place] [phone] New Patient Social History Tobacco Use Types [...] Description 10/30/2024 1:30 PM EST Clinical Support [facility] DIABETES/NUTRITION [address] [place], [place] [phone] [address] [place] [address] 11/23/2024 9:30 AM EDT Office Visit [facility] MEDICINE [address] [place] [address] Lalita Owens MD [address] [place], [place] [phone] documented as of this encounter Visit Diagnoses Not on filedocumented in this encounter Care Teams Amusement Park Entertainer Relationship Specialty Start Date End Date Lalita Owens MD [address] [place], [place] [phone] PCP - General Internal Medicine 09/23/23 documented as of this encounter
--- OUTSIDE RECORDS SUMMARY | 2024-10-24 12:36 | XMS_ITS | Encounter Summary ---
Author Organization [employer] Address [address] [facility] 7 [place] [address] Care Team Providers Care Powerhouse Engineer Name Role Phone Lalita Owens MD [...] 10/30/2024 1:30 PM EST Clinical Support [facility] DIABETES/NUTRITION 230 [place], [place] [phone] [address] [place], [place] [phone] 11/23/2024 9:30 AM EDT Office Visit [facility] MEDICINE [address] [place], [place] [phone] Lalita Owens MD [address] [place], [place] [phone] documented as of this encounter Procedures Procedure Name Priority Date/Time Associated Diagnosis Comments CBC WITH AUTO DIFFERENTIAL Routine 10/23/2024 1:25 PM EST COMPREHENSIVE METABOLIC PANEL Routine 10/23/2024 1:25 PM EST documented in this encounter Results * (ABNORMAL) Comprehensive Metabolic Panel (10/23/2024 1:25 PM EST) Sodium 141 135 - 145 mmol/L [facility] Potassium 4.7 3.3 - 5.1 mmol/L [facility] Chloride 104 96 - 108 mmol/L [facility] Carbon Dioxide 28 22 - 29 mmol/L [facility] Anion Gap 14 12 - 20 [facility] Urea Nitrogen (BUN) 15 9 - 16 mg/dL [facility] Creatinine, Serum 0.79 0.5 - 1.4 mg/dL [facility] Creatinine Clr Calc Pharmacy 45.4 [facility] Comment:Provided height and weight: 149.86 cm,52.163 kg.eGFR (calculated from the MDRD study equation) and eCrCl(calculated from the Cockcroft-Gault equation) are based ondifferent parameters and may not yield comparable results.If eCrCl result is absurd, please check patient'sheight/weight. Estimated Glomerular Filt Rate >60 [facility] Comment:Chronic Kidney Disea se: Estimated GFR < 60 mL/min/1.08p9Eovzfr Kidney Disease: Estimated GFR < 15 mL/min/1.73m2 Glucose 102 60 - 115 mg/dL [facility] Calcium 10.2 8.4 - 10.2 mg/dL [facility] Bilirubin, Total 0.5 0.0 - 1.0 mg/dL [facility] Aspartate Amino Transferase 30 5 - 31 U/L [facility] Alanine Aminotransferase 37(H) 0 - 31 U/L [facility] Total Protein 7.9 6.5 - 8.0 g/dL [facility] Albumin Level 4.2 3.5 - 5.0 g/dL [facility] Alkaline Phosphatase 174(H) 39 - 117 U/L [facility] 10/23/2024 1:25 PM EST 10/23/2024 1:31 PM EST us Generic External Data Provider LAB BLOOD ORDERAB LES Final Result [facility] [address] [place] [address] [phone] * (ABNORMAL) CBC auto differential (10/23/2024 1:25 PM EST) White Blood Count 4.6(L) 4.8 - 10.8 X10*3/uL [facility] Red Blood Count 4.11(L) 4.20 - 5.50 X10*6/uL [facility] Hemoglobin 12.6 12.0 - 16.0 g/dl [facility] Hematocrit 40.0 37.0 - 47.0 % [facility] Mean Corpuscular Volume 97.3 80.0 - 98.0 fL [facility] Mean Corpuscular Hemoglobin 30.7 27.0 - 33.0 pg [facility] Mean Corpuscular HGB Conc 31.5 31.0 - 35.0 g/dl [facility] Red Cell Distribution Width 11.9 11.0 - 16.0 % [facility] Platelet Count 350 160 - 400 X10*3/uL [facility] Mean Platelet Volume 10.2 9.4 - 12.3 fL [facility] Neutrophils Percent Auto 41.0(L) 45 - 73 % [facility] Imm Gran Pct Auto 0.2 0.0 - 0.4 % [facility] Lymphocytes Percent Auto 44.6(H) 20 - 40 % [facility] Monocytes Percent Auto 10.8 2 - 11 % [facility] Eosinophils Percent Auto 2.8 0 - 4 % [facility] Basophils Percent Auto 0.6 0 - 2 % [facility] NRBC Pct Auto 0.0 0.0 - 0.2 /100WBC [facility] Neutrophils Absolute Auto 1.9(L) 2.0 - 8.3 x10*3/uL [facility] Imm Gran Abs Auto 0.01 0.00 - 0.03 X10*3/uL [facility] Lymphocytes Absolute Auto 2.1 1.2 - 4.9 X10*3/uL [facility] Monocytes Absolute Auto 0.5 0.1 - 1.2 X10*3/uL [facility] Eosinophils Absolute Auto 0.1 0.0 - 0.4 X10*3/uL [facility] Basophils Absolute Auto 0.0 0.0 - 0.2 X10*3/uL [facility] NRBC Abs Auto 0.000 0.0 - 0.012 X10*3/uL [facility] 10/23/2024 1:25 PM EST 10/23/2024 1:31 PM EST us Generic External Data Provider LAB BLOOD ORDERAB LES Final Result [facility] [address] [place] [address] [phone] documented in this encounter Visit Diagnoses Not on filedocumented in this encounter Additional Health Concerns Assessment Noted Time PHQ-9 Depression Total Score: 7 11/01/19 24 10:28 AM EST documented as of this encounter Care Teams Powerhouse Engineer Relationship Specialty Start Date End Date Lalita Owens MD [address] [place] [address] PCP - General Internal Medicine 09/23/23 documented as of this encounter
--- OUTSIDE RECORDS SUMMARY | 2024-10-24 12:36 | XMS_ITS | Encounter Summary ---
Author Organization [employer] Address [address] [facility] [address] 7[address] [place] [address] Care Team Providers Care Vegetable Cook Name Role Phone Lalita Owens MD Primary Care Provide r Reason for Visit * Reason Comments Med Refill Encounter Details Date Type Department Care Team ([facility] st Contact Info) Description 10/09/2024 Refill [facility] [address] [place] [address] Lalita Owens MD [address] [place] [address] Peptic ulcer; Primary hypertension; Hand eczema Social [...] the past 12 months, has t he inContact, gas, oil or water [employer] threatened to shut off services in your [...] Description 10/30/2024 1:30 PM EST Clinical Support [facility] DIABETES/NUTRITION [address] [place] [address] [place] [phone] 11/23/2024 9:30 AM EDT Office Visit [facility] MEDICINE [address] [place] [address] Lalita Owens MD [address] [place] [phone] documented as of this encounter Visit Diagnoses [...] documented as of this encounter Care Teams Vegetable Cook Relationship Specialty Start Date End Date Lalita Owens MD [address] [place] [address] PCP - General Internal Medicine 09/23/23 documented as of this encounter
--- OUTSIDE RECORDS SUMMARY | 2024-10-24 12:36 | XMS_ITS | Encounter Summary ---
Author Organization [employer] Address [address] [place] [address] [facility] [place] [place] [address] Care Team Providers Care Polysomnograph Tech Name Role Phone Lalita Owens MD Primary Care Provide r Reason for Visit * Consultation (Routine) - Authorized Specialty Diagnoses / Procedures Referred By Stephanie friedman Referred To Contact Nutrition Diagnoses Primary hypertension Body mass index (BMI) 23.0-23.9, adult Lalita Owens MD [address] [place] [address] Phone: tel: fax: Referral ID Status Reason Start Date Expiration Date Visits Requested Visits Authorized [id number] Authorized Specialty Services Required 4 08/10/2025 1 1 Encounter Details Date Type Department Care Team ([facility] st Contact Info) Description 10/02/2024 1:00 PM EST Nutrition [facility] DIABETES/NUTRITION [address] [place] [address] [place] [address] Primary hypertension; Body mass index (BMI) 23.0-23.9, [...] say Food Preferences: Breakfast sausages, spiced ham, Dominican cheese, mayonnaise, lettuce, tomato, Irish bread, potatochips, Cheese Doodles, yellow and white [...] 1:30 PM EST Clinical Support [facility] DIABETES/NUTRITION [address] [place] [phone] [place] [address] 11/23/2024 9:30 AM EDT Office Visit [facility] MEDICINE [address] [place] [address] Lalita Owens MD [address] [place] [address] documented as of this encounter Visit Diagnoses Diagnosis Primary hypertension Unspecified essential hypertension Body mass index (BMI) 23.0-23.9, adult documented in this encounter Additional Health Concerns Assessment Noted Time PHQ-9 Depression Total Score: 7 11/01/19 24 10:28 AM EST documented as of this encounter Care Teams Polysomnograph Tech Relationship Specialty Start Date End Date Lalita Owens MD [address] [place] [address] PCP - General Internal Medicine 09/23/23 documented as of this encounter
== END 2024-10-24 10:43 | disposition home or self-care (01) ==
PROVIDERS: PCP Internal Medicine; Visit Provider Surgery
DX: Z98.890 Other specified postprocedural states (principal); Z87.19 Personal history of other diseases of the digestive system
CPT/HCPCS: 99024

== ENCOUNTER → 2024-10-24 10:20 | Outpatient (BNVA) | payer OTHER, SELFPAY | PROVIDERS: PCP Internal Medicine; Visit Provider Surgery | DX: Z09 Encounter for follow-up examination after completed treatment for conditions other than malignant neoplasm (principal); Z87.19 Personal history of other diseases of the digestive system | CPT/HCPCS: 99212 ==

== ENCOUNTER 2024-10-29 12:36 | Outpatient (REF) | payer OTHER, SELFPAY ==
--- NOTE | ~2024-10-29 | MM_ITS ---
EXAMINATION: MM SCREENING DIGITAL BREAST TOMOSYNTHESIS, BILATERAL CLINICAL INFORMATION: Screening. Asymptomatic. COMPARISON: Mammography: Baseline. TECHNIQUE: Digital breast mammography with tomosynthesis is performed in both the craniocaudal and mediolateral oblique views along with computer-aided detection (CAD). FINDINGS: The breasts are heterogeneously dense, which may obscure small masses (ACR BI-RADS breast composition Category c). Left: No suspicious calcifications masses or other abnormal findings. Right: Focal asymmetry lower inner breast middle depth. Focal asymmetry upper outer breast posterior depth. No suspicious calcifications or other abnormal findings. MM/MM tomosynthesis screening BI IMPRESSION: Additional imaging is recommended ASSESSMENT: BI-RADS BI-RADS 0 - Incomplete: Needs additional Imaging. RECOMMENDATION: 1. Additional views of the right breast. 2. Targeted ultrasound if warranted after review of the additional views. 3. Radiology department staff will contact the patient for additional imaging. Additional Imaging required This examination should not preclude the clinical evaluation of a suspicious palpable abnormality. This patient's information was entered into a reminder system with a target due date for their next mammogram. Electronically signed by: Radhika Aden DO 10/30/2024 06:04 PM [facility]
--- OUTSIDE RECORDS SUMMARY | 2024-10-29 14:45 | XMS_ITS | Encounter Summary ---
Author Organization [employer] Address [address] [facility] [address] [facility] [address] 7t [place] [address] Care Team Providers Care Quiller Runner Name Role Phone Lalita Owens MD Primary Care Provide r Reason for Visit * Reason Comments Med Refill Encounter Details Date Type Department Care Team ([facility] st Contact Info) Description 10/09/2024 Refill [facility] [address] [place] [address] Lalita Owens MD [address] [place] [address] Peptic ulcer; Primary hypertension; Hand eczema Social [...] the past 12 months, has t he [employer], gas, oil or water [employer] threatened to shut off services in your [...] Description 10/30/2024 1:30 PM EST Clinical Support [facility] DIABETES/NUTRITION [address] [place] [address] [place] [phone] 11/23/2024 9:30 AM EDT Office Visit [facility] MEDICINE [address] [place] [address] Lalita Owens MD [address] [place] [address] documented as of this encounter Visit Diagnoses [...] documented as of this encounter Care Teams Quiller Runner Relationship Specialty Start Date End Date Lalita Owens MD [address] [place] [address] PCP - General Internal Medicine 09/23/23 documented as of this encounter
--- OUTSIDE RECORDS SUMMARY | 2024-10-29 14:45 | XMS_ITS | Encounter Summary ---
Author Organization [employer] Address [address] [facility] 7 [place] [address] Care Team Providers Care Plate Shop Helper Name Role Phone Lalita Owens MD Primary [...] is your housing situation today? I have role kirby 10/25/[address] you [...] Description 10/30/2024 1:30 PM EST Clinical Support [facility] DIABETES/NUTRITION [address] [place], [place] [phone] [address] [place] [address] 11/23/2024 9:30 AM EDT Office Visit [facility] MEDICINE [address] [place] [address] Lalita Owens MD [address] [place], [place] [phone] documented as of this encounter Procedures Procedure Name Priority Date/Time Associated Diagnosis Comments GROSS AND MICROSCOPIC LEVEL 3 Routine 10/11/2024 11:55 AM EST documented in this encounter Results * Gross and Microscopic Level 3 (10/11/2024 11:55 AM EST) 10/11/2024 11:5 5 AM EST 10/11/2024 12:42 PM EST [facility] LABS - 10/12/2024 4:30 PM EST ----- ------- Name: Nathaly Montero ?Age/Sex: 74/F ? : 1950 Unit#: [id number] ?? Attend Dr: Yovany Randolph MD ?Re10/11/24 ?Status: DEP SDC ? Location: HO.SSS ?Disch: ? ----- ------- SPEC : [id number] ?RECD: 10/11/24 ? STATUS: ??SOUT ? REQ NUM: [id number] ? CLARK: 10/11/24-7 ? SUBM DR: Yovany Randolph MD ? [...] with a few dilated, blood-filled vessels. ??A banking representative section from each of the 2 smaller specimens are submitted in cassette A1, 2 pieces. ??Scrap Stripper Hand sections from the larger portion of tissue are submitted in cassette A2, 2 pieces. [facility] Copies To: ?? Lalita Owens MD ?? [facility] ?? [address] ?? [place] [address] ?? [phone] ?? Yovany Randolph MD ?? [facility] General Surgeons ?? [address] ?? [place] [address] ?? [phone] ?? [email or web address] ? CONTINUED ON NEXT PAGE ----- ------- Name: Nathaly Montero ?Age/Sex: 74/F ? : 1950 Unit#: [id number] ?? Attend Dr: Yovany Randolph MD ?Re10/11/24 ?Status: DEP SDC ? Location: HO.SSS ?Disch: ? ----- ------- SPEC : [id number] ?RECD: 10/11/24-1241 ? STATUS: ??SOUT ? REQ NUM: [id number] ? CLARK: 10/11/242 ? SUBM DR: Yovany Randolph MD ? ENTERED: ??10/11/24 ?SP TYPE: Surgical ? OTHR DR: Lalita Owens MD ? ORDERED: ??Gross Micro L3 ? ----- ------- Signed (signature on file) Jerrell Friedman MD 10/12/24 1630 ? ----- ------- ? END OF REPORT ? us Generic External Data Provider LAB CYTOLOGY AURA HINDS Final Result [facility] [address] [place] [address] [phone] documented in this encounter Visit Diagnoses Not on filedocumented in this encounter Additional Health Concerns Assessment Noted Time PHQ-9 Depression Total Score: 7 11/01/19 24 10:28 AM EST documented as of this encounter Care Teams Plate Shop Helper Relationship Specialty Start Date End Date Lalita Owens MD [address] [place] [address] PCP - General Internal Medicine 09/23/23 documented as of this encounter
--- OUTSIDE RECORDS SUMMARY | 2024-10-29 14:45 | XMS_ITS | Encounter Summary ---
Author Organization [employer] Address [address] [place] [address] [facility] [place] [address] Care Team Providers Care Veneer Jointer Operator Name Role Phone Lalita Owens MD Primary Care Provide r Reason for Visit * Consultation (Routine) - Authorized Specialty Diagnoses / Procedures Referred By Stephanie friedman Referred To Contact Nutrition Diagnoses Primary hypertension Body mass index (BMI) 23.0-23.9, adult Lalita Owens MD [address] [place] [address] Phone: tel: fax: Referral ID Status Reason Start Date Expiration Date Visits Requested Visits Authorized [id number] Authorized Specialty Services Required 4 08/10/2025 1 1 Encounter Details Date Type Department Care Team ([facility] st Contact Info) Description 10/02/2024 1:00 PM EST Nutrition [facility] DIABETES/NUTRITION [address] [place] [address] [place] [address] Primary hypertension; Body mass index (BMI) 23.0-23.9, [...] say Food Preferences: Breakfast sausages, spiced ham, [place] cheese, mayonnaise, lettuce, tomato, Romanian bread, potatochips, Cheese Doodles, yellow and white [...] 1:30 PM EST Clinical Support [facility] DIABETES/NUTRITION [address] [place] [address] [place] [address] 11/23/2024 9:30 AM EDT Office Visit [facility] MEDICINE [address] [place] [address] Lalita Owens MD [address] [place] [address] documented as of this encounter Visit Diagnoses Diagnosis Primary hypertension Unspecified essential hypertension Body mass index (BMI) 23.0-23.9, adult documented in this encounter Additional Health Concerns Assessment Noted Time PHQ-9 Depression Total Score: 7 11/01/19 24 10:28 AM EST documented as of this encounter Care Teams Veneer Jointer Operator Relationship Specialty Start Date End Date Lalita Owens MD [address] [place] [address] PCP - General Internal Medicine 09/23/23 documented as of this encounter
--- OUTSIDE RECORDS SUMMARY | 2024-10-29 14:45 | XMS_ITS | Encounter Summary ---
Author Organization [employer] Address [address] [place] [address] [facility] [place] [address] Care Team Providers Care Co Op Name Role Phone Lalita Owens MD Primary Care Provide r Reason for Visit * Reason Onset Date Comments New Patient 09/08/2023 Encounter Details Date Type Department Care Team ([facility] st Contact Info) Description 09/08/2023 Telephone [facility] MEDICINE [address] [place] [address] Toney Leyva MD [address] [place], [place] [phone] New Patient Social History Tobacco Use Types [...] Description 10/30/2024 1:30 PM EST Clinical Support [facility] DIABETES/NUTRITION [address] [place], [place] [phone] [place] [address] 11/23/2024 9:30 AM EDT Office Visit [facility] MEDICINE [address] [place] [address] Lalita Owens MD [address] [place], [place] [phone] documented as of this encounter Visit Diagnoses Not on filedocumented in this encounter Care Teams Co Op Relationship Specialty Start Date End Date Lalita Owens MD [address] [place], [place] [phone] PCP - General Internal Medicine 09/23/23 documented as of this encounter
--- OUTSIDE RECORDS SUMMARY | 2024-10-29 14:45 | XMS_ITS | Clinical Summary ---
Author Organization [employer] Address [address] [place] [address] 7 [place] [address] Care Team Providers Care Java Websphere Developer Name Role Phone Lalita Owens MD Primary Care Provide r Allergies Active Allergy Reactions Criticality Noted Date Comments Peanut-Containing Drug Products 08/30 Penicillins 11/01/2023 Medications ergocalciferol (Vitamin D2) 1.25 MG (81562 UT) capsuleIndicatio ns:Primary hypertension TAKE 1 CAPSULE [...] DIRECTED 30 g 1 07/11/20 24 Active hydrocortisone (Anusol-HC) 2.5 % rectal [...] AFFECTED AREA(S) TWICE DAILY DIRECTED 30 g 10/09/19 25 Active ammonium lactate (Amlactin) 12 % creamIndications :Alopecia areata APPLY TOPICALLY TO AFFECTED AREA(S) EVERY DAY NEEDED FOR DRY SKIN 385 g 1 10/25/19 25 Active atorvastatin (Lipitor) 40 MG tabletIndication [...] 30 g 1 12/27/19 24 025 Discontinued ammonium lactate (Amlactin) 12 % creamIndications :Alopecia areata APPLY TOPICALLY TO THE AFFECTED AREA(S) EVERY DAY NEEDED FOR DRY SKIN 385 g 1 07/17/20 24 025 Discontinued Active Problems Problem Noted [...] repeat her ultrasound again by 10/19/2024 at [facility]. Assessment & Plan (08/15/2024 2:01 PM [...] Encounters Date Type Department Care Team Description 10/25/2024 Refill [facility] [address] [place] [phone] Lalita Owens MD Alopecia areata 10/23/2024 Orders Only GENERIC EXTERNAL DATA DEPARTMENT Provider, Generic External Data 10/11/2024 Orders Only GENERIC EXTERNAL DATA DEPARTMENT Provider, Generic External Data 10/09/2024 Refill [facility] [address] [place] [address] 11485 Lalita wOens MD Peptic ulcer; Primary hypertension; Hand eczema 10/02/2024 1:00 PM EST Nutrition [facility] [address] [place] [address] Primary hypertension; Body mass index (BMI) 23.0-23.9, adult 10/02/2024 Travel 09/06/2024 Orders Only [facility] External Provider, [facility] 08/23/2024 Telephone [facility] [address] [place] [phone] Lalita Owens MD 08/10/2024 1:45 PM EST Office Visit [facility] [address] [place] [phone] Reta Yu MD Alopecia areata (Primary Dx) 08/10/2024 11:00 AM EST Office Visit [facility] [address] [place] [address] Lalita Owens MD Hemorrhoids, unspecified hemorrhoid type (Primary Dx); Other constipation; Primary hypertension; Body mass index (BMI) 23.0-23.9, adult; Encounter for screening mammogram for malignant neoplasm of breast; Nontoxic multinodular goiter; Encounter for immunization 08/10/2024 Telephone [facility] [address] [place] [address] Raquel Beyer MA Durable Medical Equipment 08/10/2024 Travel 07/31/2024 Orders Only [facility] External Provider, [facility] from Last 3 Months Immunizations Name [...] Description 10/30/2024 1:30 PM EST Clinical Support [facility] [address] [place] [phone] [place], [place] [phone] 11/23/2024 9:30 AM EDT Office Visit [facility] [address] [place] [address] [phone] Lalita Owens MD [address] [place], [place] [phone] Health Maintenance Due Date Last Done Comments [...] Blood Count 4.6(L) 4.8 - 10.8 X10*3/uL [facility] Red Blood Count 4.11(L) 4.20 - 5.50 X10*6/uL [facility] Hemoglobin 12.6 12.0 - 16.0 g/dl [facility] Hematocrit 40.0 37.0 - 47.0 % [facility] Mean Corpuscular Volume 97.3 80.0 - 98.0 fL [facility] Mean Corpuscular Hemoglobin 30.7 27.0 - 33.0 pg [facility] Mean Corpuscular HGB Conc 31.5 31.0 - 35.0 g/dl [facility] Red Cell Distribution Width 11.9 11.0 - 16.0 % [facility] Platelet Count 350 160 - 400 X10*3/uL [facility] Mean Platelet Volume 10.2 9.4 - 12.3 fL [facility] Neutrophils Percent Auto 41.0(L) 45 - 73 % [facility] Imm Gran Pct Auto 0.2 0.0 - 0.4 % [facility] Lymphocytes Percent Auto 44.6(H) 20 - 40 % [facility] Monocytes Percent Auto 10.8 2 - 11 % [facility] Eosinophils Percent Auto 2.8 0 - 4 % [facility] Basophils Percent Auto 0.6 0 - 2 % [facility] NRBC Pct Auto 0.0 0.0 - 0.2 /100WBC [facility] Neutrophils Absolute Auto 1.9(L) 2.0 - 8.3 x10*3/uL [facility] Imm Gran Abs Auto 0.01 0.00 - 0.03 X10*3/uL [facility] Lymphocytes Absolute Auto 2.1 1.2 - 4.9 X10*3/uL [facility] Monocytes Absolute Auto 0.5 0.1 - 1.2 X10*3/uL [facility] Eosinophils Absolute Auto 0.1 0.0 - 0.4 X10*3/uL [facility] Basophils Absolute Auto 0.0 0.0 - 0.2 X10*3/uL [facility] NRBC Abs Auto 0.000 0.0 - 0.012 X10*3/uL [facility] 10/23/2024 1:25 PM EST 10/23/2024 1:31 PM EST us Generic External Data Provider LAB BLOOD ORDERAB LES Final Result [facility] [address] [place] [phone] * (ABNORMAL) Comprehensive Metabolic Panel (10/23/2024 1:25 PM EST) Sodium 141 135 - 145 mmol/L [facility] Potassium 4.7 3.3 - 5.1 mmol/L [facility] Chloride 104 96 - 108 mmol/L [facility] Carbon Dioxide 28 22 - 29 mmol/L [facility] Anion Gap 14 12 - 20 [facility] Urea Nitrogen (BUN) 15 9 - 16 mg/dL [facility] Creatinine, Serum 0.79 0.5 - 1.4 mg/dL [facility] Creatinine Clr Calc Pharmacy 45.4 [facility] Comment:Provided height and weight: 149.86 cm,52.163 kg.eGFR (calculated from the MDRD study equation) and eCrCl(calculated from the Cockcroft-Gault equation) are based ondifferent parameters and may not yield comparable results.If eCrCl result is absurd, please check patient'sheight/weight. Estimated Glomerular Filt Rate >60 [facility] Comment:Chronic Kidney Disea se: Estimated GFR < 60 mL/min/1.92l4Stpldr Kidney Disease: Estimated GFR < 15 mL/min/1.73m2 Glucose 102 60 - 115 mg/dL [facility] Calcium 10.2 8.4 - 10.2 mg/dL [facility] Bilirubin, Total 0.5 0.0 - 1.0 mg/dL [facility] Aspartate Amino Transferase 30 5 - 31 U/L [facility] Alanine Aminotransferase 37(H) 0 - 31 U/L [facility] Total Protein 7.9 6.5 - 8.0 g/dL [facility] Albumin Level 4.2 3.5 - 5.0 g/dL [facility] Alkaline Phosphatase 174(H) 39 - 117 U/L [facility] 10/23/2024 1:25 PM EST 10/23/2024 1:31 PM EST us Generic External Data Provider LAB BLOOD ORDERAB LES Final Result Performing Organization Address City/State/[facility] Co de Phone Number [facility] [address] [place] [address] [phone] * Gross and Microscopic Level 3 (10/11/2024 11:55 AM EST) 10/11/2024 11:5 5 AM EST 10/11/2024 12:42 PM EST Narrative [facility] - 10/12/2024 4:30 PM EST ----- ------- Name: Nathaly Montero ?Age/Sex: 74/F ? : 1950 Unit#: [id number] ?? Attend Dr: Yovany Randolph MD ?Re10/11/24 ?Status: DEP SDC ? Location: HO.SSS ?Disch: ? ----- ------- SPEC : [id number] ?RECD: 10/11/24 ? STATUS: ??SOUT ? REQ NUM: [id number] ? CLARK: 10/11/24-2 ? SUBM DR: Yovany Randolph MD ? [...] with a few dilated, blood-filled vessels. ??A account manager sales representative section from each of the 2 smaller specimens are submitted in cassette A1, 2 pieces. ??Quickbooks Bookkeeper sections from the larger portion of tissue are submitted in cassette A2, 2 pieces. [facility] Copies To: ?? Lalita Owens MD ?? [facility] ?? [address] ?? [place] [address] ?? [phone] ?? Yovany aRndolph MD ?? [facility] ?? [address] ?? [place] [address] ?? [phone] ?? [email or web address] ? CONTINUED ON NEXT PAGE ----- ------- Name: Nathaly Montero ?Age/Sex: 74/F ? : 1950 Unit#: [id number] ?? Attend Dr: Yovany Randolph MD ?Re10/11/24 ?Status: DEP SDC ? Location: HO.SSS ?Disch: ? ----- ------- SPEC : [id number] ?RECD: 10/11/24 ? STATUS: ??SOUT ? REQ NUM: [id number] ? CLARK: 10/11/24-3635 ? SUBM DR: Yovany Randolph MD ? ENTERED: ??10/11/24 ?SP TYPE: Surgical ? OTHR DR: Lalita Owens MD ? ORDERED: ??Gross Micro L3 ? ----- ------- Signed (signature on file) Jerrell Friedman MD 10/12/24 8210 ? ----- ------- ? END OF REPORT ? us Generic External Data Provider LAB CYTOLOGY MOBILEE [facility] Final Result [facility] [address] [place] [phone] [phone] * BD DEXA Axial (09/06/2024 10:30 AM EST) Anatomical Region Laterality Modality Body Radiographic Mima ging 09/06/2024 10:3 0 AM EST Narrative 09/10/2024 9:42 AM EST ? [facility] [place] ? [address] [facility] ?[place] [address] ? Mammography Report ? Signed ? Patient: Montero,Nathaly ?MR#: [id number] ?? [id number] ? : 1950 ?Acct:[id number] ? Age/Sex: 74 / F ?ADM Date: 01/09/25 ? Loc: HO.MAMMO ? Attending Dr: Wild Ventura DO, MD ? Ordering Physician: WILD VENTURA DO ?Results: ? Date of Service: 09/06/24 ?Follow Up: ? Procedure(s): XR DEXA axial skeleton ?? Accession Number(s): [id number] ? cc: Lalita Owens MD; WILD VENTURA DO ? EXAMINATION: ??Dual-Energy X-ray Absorptiometry - Bone Density Study ? 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 TECHNIQUE: Big Six Dual energy absorptiometry (DEXA) ?? of the [...] distal 1/3 radius. ? Electronically signed by: ??oPpeye Gomez MD ??09/10/2024 09:39 AM EST ?? RP ? Dictated By: ?Popeye Gomez MD ? Signed By: ?<Electronically signed by Popeye Gomez MD in OV> ?09/10/24 0939 ? DD/ 1030 ? TD/TT: 09/06/24 1058 ? Nurse'S Assistant: ? Procedure Note Donotuseinterpreter, Image - [facility] [address] [place] [address] Mammography Report Signed Patient: Nathaly MonteroMR#: [id number] : 1950cct:[id number] Age/Sex: 74 / FADM Date: 09/06/24 Loc: MAMMO Attending Dr: Wild Ventura DO, MD Ordering Physician: WILD VENTURAults: Date of Service: 09/06/24Follow Up: Procedure(s): XR DEXA axial skeleton Accession Number(s): [id number] cc: Lalita Owens MD; WILD VENTURA DO EXAMINATION: Dual-Energy X-ray Absorptiometry - Bone Density Study HISTORY: Estrogen deficiency TECHNIQUE: Big Six Dual energy absorptiometry (DEXA) of the lumbar [...] 09/10/24 0939 DD/ 1030 TD/TT: 09/06/24 1058 Nurse'S Assistant: [facility] External Provider IMG DXA PROCEDURES Edited Result - Final * US Thyroid (07/31/2024 10:55 AM EST) Anatomical Region Laterality Modality Head, Neck Ultrasound 07/31/2024 10:5 5 AM EST Narrative 08/03/2024 10:08 AM EST ? [facility] ?[address] ?[place] [address] ? Ultrasound Report ? Signed ? Patient: Nathaly Montero ?MR#: [id number] ?? [id number] ? : 1950 ?Acct:[id number] ? Age/Sex: 74 / F ?ADM Date: 07/31/24 ? Loc: HO.US ? Attending Dr: Wild Ventura DO, MD ? Ordering Physician: WILD VENTURA DO ?? Date of Service: 07/31/24 ?? Procedure(s): US thyroid ?? Accession Number(s): [id number] ? cc: Lalita Owens MD; WILD VENTURA [...] or equal to 1 cm: 0. ?? Quickbooks Bookkeeper nodules are described as follows: ? 1. [...] DD/ 1055 ? TD/TT: 07/31/24 1117 ? Nurse'S Assistant: ? Procedure Note Donotuseinterpreter, Image - 08/03/[address] [address] Ultrasound Report Signed Patient: Nathaly MonteroMR#: [id number] : 9Acct:[id number] Age/Sex: 74 / FADM Date: 07/31/24 Loc: HO.US Attending Dr: Wild Ventura DO, MD Ordering Physician: WILD VENTURA DO Date of Service: 07/31/24 Procedure(s): US thyroid Accession Number(s): [id number] cc: Lalita Owens MD; WILD VENTURA DO [...] than or equal to 1 cm: 0. Quickbooks Bookkeeper nodules are described as follows: 1. Location: [...] by: Jonathan Templeton MD 08/03/2024 10:05 AM [facility] Dictated By: Jonathan Templeton Signed By: <Electronically signed by Jonathan Templeton in OV> 08/03/24 1005 DD/ 1055 TD/TT: 07/31/24 1117 Nurse'S Assistant: [facility] External Provider IM US PROCEDURES Edited Result - Final * Cologuard?? colon cancer screening (11/29/2023 12:01 AM EDT) Cologuard Result Negative Negative 12/04/19 6:00 PM EDT [facility] (CLIA #:[id number]) Comment: NEGATIVE TEST RESULT. A negative Cologuard [...] cancer. ??Following a negative Cologuard result, the [place] [employer] Society and U.S. Multi-Society Task Force screening guidelines recommend a Cologuard re-screening interval of 3 years. References: [place] [employer] Guideline for Colorectal Cancer Screening: https://www.cancer.org/cancer/vwhmd-dakdxj-lwsxex/xmzfttngn-zwgbtvdfs-kfimxty/ac s-rec ommendations.html.; Bryson HOU, Aliza VIEIRA, Nicolas HardingK, Colorectal Cancer Screening: Recommendations for Physicians and Patients from the U.S. Multi-Society Task Force on Colorectal Cancer Screening , Am J Gastroenterology 2017; 112:5668-8952. TEST DESCRIPTION: Composite algorithmic analysis of stool [...] Cameron et al, N Engl J Med 2014;370(14):2598-6679.) Cologuard may produce a false negative or false positive result (no colorectal cancer or precancerous polyp present at colonoscopy follow up). A negative Cologuard test result does not guarantee the absence of CRC or advanced adenoma (pre-cancer). The current Cologuard screening interval is every 3 years. ([place] [employer] Society and U.S. Multi-Society Task Force). Cologuard performance data in a 10,000 patient pivotal study using colonoscopy as the reference method can be accessed at the following location: www.Ecinity.Pockethernet/results. Additional description of the Cologuard test process, warnings and precautions can be found at www.cologuard.com. Stool specimen (specimen) Rectal contents / Unknown 11/29/2023 12:01 AM EDT 12/01/2023 10:59 AM EDT us Lalita Rodriguez MD LAB MOLECULAR DIAGNOS TICS ORDERABLES Final Result [facility] (CLIA #:[id number]) [place] [address], * (ABNORMAL) Lipid Panel, Standard (11/04/2023 11:30 AM EST) Triglycerides 111 <150 mg/dL [facility] Comment:Desirable Triglyceri de: less than 150 mg/dLBorderline High Triglyceride 150-199 mg/dLHigh Triglyceride: 200-499 mg/dLVery High Triglyceride: greater than or equal to 5OO mg/dL Cholesterol 183 <200 mg/dL [facility] Comment:Desirable Cholestero l: less than 200 mg/dLBorderline High Cholesterol: 200-239 mg/dLHigh Cholesterol: greater than 239 mg/dL LDL Cholesterol Calculated 103(H) <100 mg/dL [facility] Comment:Desirable LDL: less than 100 mg/dLNear Optimal/Above Optimal LDL: 110- 129 mg/dLBorderline High LDL: 130-159 mg/dLHigh LDL: 160-189 mg/dLVery High LDL: greater than or equal to 190 mg/dL HDL Cholesterol 58 >40 mg/dL [facility] Comment:Desirable HDL: great er than 40 mg/dL Note: This HDL assay may give artificially low results in patients with liver disease. Blood Venous blood specimen / Unknown 11/04/2023 11:30 AM EST 11/04/2023 12:56 PM EST us Lalita Rodriguez MD LAB BLOOD ORDERABLES Final Result [facility] [address] [place] [phone] from Last 3 Months or Most Recently Relevant to Health Maintenance Insurance [facility] Care Teams Java Websphere Developer Relationship Specialty Start Date End Date Lalita Owens MD [address] [place] [phone] PCP - General Internal Medicine 09/23/23
--- OUTSIDE RECORDS SUMMARY | 2024-10-29 14:45 | XMS_ITS | Encounter Summary ---
Author Organization [employer] Address [address] [place] [address] Care Team Providers Care Cryptological Technician Name Role Phone Lalita Owens MD Primary [...] Description 10/30/2024 1:30 PM EST Clinical Support [facility] [address] [place] [phone] [place] [address] 11/23/2024 9:30 AM EDT Office Visit [facility] [address] [place] [address] Lalita Owens MD [address] [place] [address] documented as of this encounter Visit Diagnoses Not on filedocumented in this encounter Additional Health Concerns Assessment Noted Time PHQ-9 Depression Total Score: 7 11/01/19 10:28 AM EST documented as of this encounter Care Teams Cryptological Technician Relationship Specialty Start Date End Date Lalita Owens MD [address] [place] [address] [phone] PCP - General Internal Medicine 09/23/23 documented as of this encounter
--- OUTSIDE RECORDS SUMMARY | 2024-10-29 14:45 | XMS_ITS | Encounter Summary ---
Author Organization [employer] Address [address] [facility] 7 [place] [address] Care Team Providers Care Community Support Professional Name Role Phone Lalita Owens MD Primary [...] Description 10/30/2024 1:30 PM EST Clinical Support [facility] [address] [place], [place] [phone] [place], [place] [phone] 11/23/2024 9:30 AM EDT Office Visit [facility] [address] [place], [place] [phone] Lalita Owens MD [address] [place], [place] [phone] documented as of this encounter Procedures Procedure Name Priority Date/Time Associated Diagnosis Comments CBC WITH AUTO DIFFERENTIAL Routine 10/23/2024 1:25 PM EST COMPREHENSIVE METABOLIC PANEL Routine 10/23/2024 1:25 PM EST documented in this encounter Results * (ABNORMAL) Comprehensive Metabolic Panel (10/23/2024 1:25 PM EST) Sodium 141 135 - 145 mmol/L [facility] Potassium 4.7 3.3 - 5.1 mmol/L [facility] Chloride 104 96 - 108 mmol/L [facility] Carbon Dioxide 28 22 - 29 mmol/L [facility] Anion Gap 14 12 - 20 [facility] Urea Nitrogen (BUN) 15 9 - 16 mg/dL [facility] Creatinine, Serum 0.79 0.5 - 1.4 mg/dL [facility] Creatinine Clr Calc Pharmacy 45.4 [facility] Comment:Provided height and weight: 149.86 cm,52.163 kg.eGFR (calculated from the MDRD study equation) and eCrCl(calculated from the Cockcroft-Gault equation) are based ondifferent parameters and may not yield comparable results.If eCrCl result is absurd, please check patient'sheight/weight. Estimated Glomerular Filt Rate >60 [facility] Comment:Chronic Kidney Disea se: Estimated GFR < 60 mL/min/1.78j0Fisjfo Kidney Disease: Estimated GFR < 15 mL/min/1.73m2 Glucose 102 60 - 115 mg/dL [facility] Calcium 10.2 8.4 - 10.2 mg/dL [facility] Bilirubin, Total 0.5 0.0 - 1.0 mg/dL [facility] Aspartate Amino Transferase 30 5 - 31 U/L [facility] Alanine Aminotransferase 37(H) 0 - 31 U/L [facility] Total Protein 7.9 6.5 - 8.0 g/dL [facility] Albumin Level 4.2 3.5 - 5.0 g/dL [facility] Alkaline Phosphatase 174(H) 39 - 117 U/L [facility] 10/23/2024 1:25 PM EST 10/23/2024 1:31 PM EST us Generic External Data Provider LAB BLOOD ORDERAB LES Final Result [facility] [address] [place] [phone] [phone] * (ABNORMAL) CBC auto differential (10/23/2024 1:25 PM EST) White Blood Count 4.6(L) 4.8 - 10.8 X10*3/uL [facility] Red Blood Count 4.11(L) 4.20 - 5.50 X10*6/uL [facility] Hemoglobin 12.6 12.0 - 16.0 g/dl [facility] Hematocrit 40.0 37.0 - 47.0 % [facility] Mean Corpuscular Volume 97.3 80.0 - 98.0 fL [facility] Mean Corpuscular Hemoglobin 30.7 27.0 - 33.0 pg [facility] Mean Corpuscular HGB Conc 31.5 31.0 - 35.0 g/dl [facility] Red Cell Distribution Width 11.9 11.0 - 16.0 % [facility] Platelet Count 350 160 - 400 X10*3/uL [facility] Mean Platelet Volume 10.2 9.4 - 12.3 fL [facility] Neutrophils Percent Auto 41.0(L) 45 - 73 % [facility] Imm Gran Pct Auto 0.2 0.0 - 0.4 % [facility] Lymphocytes Percent Auto 44.6(H) 20 - 40 % [facility] Monocytes Percent Auto 10.8 2 - 11 % [facility] Eosinophils Percent Auto 2.8 0 - 4 % [facility] Basophils Percent Auto 0.6 0 - 2 % [facility] NRBC Pct Auto 0.0 0.0 - 0.2 /100WBC [facility] Neutrophils Absolute Auto 1.9(L) 2.0 - 8.3 x10*3/uL [facility] Imm Gran Abs Auto 0.01 0.00 - 0.03 X10*3/uL [facility] Lymphocytes Absolute Auto 2.1 1.2 - 4.9 X10*3/uL [facility] Monocytes Absolute Auto 0.5 0.1 - 1.2 X10*3/uL [facility] Eosinophils Absolute Auto 0.1 0.0 - 0.4 X10*3/uL [facility] Basophils Absolute Auto 0.0 0.0 - 0.2 X10*3/uL [facility] NRBC Abs Auto 0.000 0.0 - 0.012 X10*3/uL [facility] 10/23/2024 1:25 PM EST 10/23/2024 1:31 PM EST us Generic External Data Provider LAB BLOOD ORDERAB LES Final Result [facility] [address] [place] [address] [phone] documented in this encounter Visit Diagnoses Not on filedocumented in this encounter Additional Health Concerns Assessment Noted Time PHQ-9 Depression Total Score: 7 11/01/19 24 10:28 AM EST documented as of this encounter Care Teams Community Support Professional Relationship Specialty Start Date End Date Lalita Owens MD [address] [place] [phone] PCP - General Internal Medicine 09/23/23 documented as of this encounter
--- OUTSIDE RECORDS SUMMARY | 2024-10-29 14:45 | XMS_ITS | Encounter Summary ---
Author Organization [employer] Address [address] [facility] 7 [place] [address] Care Team Providers Care Lan/Wan Engineer Name Role Phone Lalita Owens MD Primary Care Provide r Reason for Visit * Reason Comments Med Refill Encounter Details Date Type Department Care Team ([facility] st Contact Info) Description 10/25/2024 Refill [facility] [address] [place] [address] Lalita Owens MD [address] [place] [address] Alopecia areata Social History Tobacco Use Types Packs/Day Years [...] 1:30 PM EST Clinical Support [facility] [address] [place] [phone] [place] [address] 11/23/2024 9:30 AM EDT Office Visit [facility] [address] [place] [phone] Lalita Owens MD [address] [place] [phone] documented as of this encounter Visit Diagnoses Diagnosis Alopecia areata documented in this encounter Additional Health Concerns Assessment Noted Time PHQ-9 Depression Total Score: 7 11/01/19 10:28 AM EST documented as of this encounter Care Teams Lan/Wan Engineer Relationship Specialty Start Date End Date Lalita Owens MD [address] [place] [phone] PCP - General Internal Medicine 09/23/23 documented as of this encounter
== END 2024-10-29 12:37 | disposition home or self-care (01) ==
LOC: HO.MAMMO 12:36
PROVIDERS: PCP Internal Medicine; Visit Provider Internal Medicine
DX: Z12.31 Encounter for screening mammogram for malignant neoplasm of breast (principal)
CPT/HCPCS: 77063; 77067

== ENCOUNTER → 2024-10-29 12:45 | Outpatient (BNV) | payer OTHER, SELFPAY | PROVIDERS: PCP Internal Medicine; Visit Provider Internal Medicine | DX: Z12.31 Encounter for screening mammogram for malignant neoplasm of breast (principal) | CPT/HCPCS: 77063; 77067 ==

== ENCOUNTER 2024-11-13 13:01 | Outpatient (AMB) | payer OTHER, SELFPAY ==
[2024-11-13 13:14] VITALS: BP 147/68; PULSE 78; O2SAT 96; BMI 22.8
--- NOTE | 2024-11-13 13:14 | MHC.OFFVIS ---
Vital Signs 11/13/24 13:14 Height 4 ft 11 in Weight 112 lb 14.027 oz BMI 22.8 BP 147/68 H Blood Pressure Location Lt brachial Position Sitting Pulse 78 Pulse Oximetry (%) 96 Oxygen Delivery Method Room Air Intake Visit Reasons: 3 wk follow up,S/P hemorrhoidectomy Intake Note: Patient in 3 weeks follow up s/p hemorrhoidectomy. CC: Patient c/o rectal pain with BMs, constipation, and some blood spotting. Denies fever, N/V, diarrhea. Reading Professor Required: No Accompanied by: Self / Same As Patient Allergies hydrocodone Allergy (Verified 11/13/24 13:20) Fatigued Penicillins Allergy (Verified 11/13/24 13:20) Unknown HPI Comments Details: Patient was for follow up. Anorectal symptoms/pain is much improved. She is tolerating a diet. She has had 1 episode of constipation but this was improved with an enema. [facility] Medical History Encounter for screening mammogram for malignant neoplasm of breast Constipation Vitamin D deficiency Non-toxic multinodular goiter Elevated alkaline phosphatase level Colon cancer screening Peptic ulcer Hemorrhoids Enlarged thyroid Primary hypertension Alopecia areata Uterine prolapse Surgical History H/O hemorrhoidectomy (10/11/24) Social History Are you a primary direct care professional to a significant other at home: No Do you presently have visiting nurse or other home services: No Alcohol intake: current Alcohol intake frequency: holidays/special occasions only Patient Tobacco Use Status: Current everyday Tobacco user Tobacco use type: Cigarette Cigarettes Per Day: 3 Physical Exam Vital Signs: Last Vital Signs Pulse 78 11/13/24 13:14 BP 147/68 H 11/13/24 13:14 Pulse Ox 96 11/13/24 13:14 Oxygen Delivery Method Room Air 11/13/24 13:14 BMI result Body Mass Index 22.8 GI Other: Anorectal hemorrhoid wounds almost completely healed. Assessment & Plan Assessment & Plan (1) Status post hemorrhoidectomy: Code(s): Z98.890 - Other specified postprocedural states; Z87.19 - Personal history of other diseases of the digestive system Category: Medical Plan Patient was continue local care, suggestions for stool softener including Metamucil or Citrucel was also recommended. All questions answered. Patient will otherwise follow-up p.r.n.. Coding Level of Care Code Global (58551) Diagnoses Status post hemorrhoidectomy Z98.890; Z87.19
== END 2024-11-13 13:29 | disposition home or self-care (01) ==
LOC: HO.HGS 13:01
PROVIDERS: PCP Internal Medicine; Visit Provider Surgery
DX: Z98.890 Other specified postprocedural states (principal); Z87.19 Personal history of other diseases of the digestive system
CPT/HCPCS: 99024

== ENCOUNTER → 2024-11-13 13:01 | Outpatient (BNVA) | payer OTHER, SELFPAY | PROVIDERS: PCP Internal Medicine; Visit Provider Surgery | DX: Z09 Encounter for follow-up examination after completed treatment for conditions other than malignant neoplasm (principal); Z87.19 Personal history of other diseases of the digestive system; Z98.890 Other specified postprocedural states | CPT/HCPCS: 99212 ==

== ENCOUNTER 2024-12-03 08:59 | Outpatient (REF) | payer OTHER, SELFPAY ==
--- NOTE | ~2024-12-03 | MM_ITS ---
EXAMINATION: MM DIAGNOSTIC DIGITAL BREAST TOMOSYNTHESIS, RIGHT Limited right breast ultrasound. CLINICAL INFORMATION: Call back from screening baseline for right breast asymmetries. COMPARISON: Mammography: Screening mammography October 29, 2024. TECHNIQUE: Digital breast tomosynthesis is performed in both the craniocaudal and mediolateral oblique views along with computer-aided detection (CAD). Synthesized 2D images are generated from the tomosynthesis. FINDINGS: The breasts are heterogeneously dense, which may obscure small masses (ACR BI-RADS breast composition Category c). Focal asymmetry central inner breast persists on additional imaging projections at middle to posterior depth. Focal asymmetry central outer breast posterior depth does not persist on additional imaging projections and likely represented overlapping breast tissue. There is architectural distortion the retroareolar region which could correlate with patient's history of prior excisional biopsy. No suspicious calcifications or other abnormal findings. Targeted color Doppler ultrasound scanning from 7-11 o'clock demonstrates normal fibronodular breast tissue. Targeted color Doppler ultrasound scanning from 1-5 o'clock demonstrates normal fibronodular breast tissue. Targeted color Doppler ultrasound scanning in the retroareolar region demonstrates normal fibronodular breast tissue. There is no sonographic abnormality. MM/MM tomosynthesis added views R IMPRESSION: Right breast focal asymmetry and distortion without sonographic correlate and with a history of prior right breast benign surgical excision which could account for the area of distortion. Recommend 6 month follow-up right breast mammography for further evaluation of stability. ASSESSMENT: BI-RADS BI-RADS 3 - Probably benign finding(s) - 6 month follow-up suggested RECOMMENDATION: 6 Month F/U Results were provided to the patient at time of visit by the technologist. This patient's information was entered into a reminder system with a target due date for their next mammogram. Electronically signed by: Radhika Aden DO 12/03/2024 12:01 PM EDT
--- OUTSIDE RECORDS SUMMARY | 2024-12-03 09:53 | XMS_ITS | Encounter Summary ---
Author Organization [facility] Address [address] [place] [address] [facility] [place] [address] Care Team Providers Care [employer] Consultant Name Role Phone Lalita Owens MD Primary Care Provide r Reason for Visit * Reason Onset Date Comments New Patient 09/08/2023 Encounter Details Date Type Department Care Team ([facility] st Contact Info) Description 09/08/2023 Telephone [facility] [address] [place] [address] Toney Leyva MD [address], [place] [phone] New Patient Social History Tobacco Use Types [...] Care Team (Late st Contact Info) Description 02/21/2025 11:00 AM EDT Office Visit [facility] [address] [place] [address] Lalita Owens MD [address] [place] [address] documented as of this encounter Visit Diagnoses Not on filedocumented in this encounter Care Teams [employer] Consultant Relationship Specialty Start Date End Date Lalita Owens MD [address], [place] [phone] PCP - General Internal Medicine 09/23/23 documented as of this encounter
--- OUTSIDE RECORDS SUMMARY | 2024-12-03 09:53 | XMS_ITS | Clinical Summary ---
Author Organization [email or web address] Address [address] [place] [address] 7 [place] [address] Care Team Providers Care Manager Math Name Role Phone Lalita Owens MD Primary Care Provide r Allergies Active Allergy Reactions Criticality Noted Date Comments Peanut-Containing Drug Products 08/30 Penicillins 11/01/2023 Medications ergocalciferol (Vitamin D2) 1.25 MG (21325 UT) capsuleIndicatio ns:Primary hypertension TAKE 1 CAPSULE [...] DIRECTED 30 g 1 07/11/20 24 Active famotidine (Pepcid) 20 MG tabletIndication s:Peptic ulcer TAKE 1 TABLET BY MOUTH TWICE DAILY 60 tablet 11 10/09/19 25 Active atorvastatin (Lipitor) 40 MG tabletIndication s:Primary hypertension TAKE 1 TABLET BY MOUTH EVERY DAY IN THE MORNING 30 tablet 11 10/09/19 25 Active amLODIPine (Norvasc) 10 MG tabletIndication s:Primary hypertension TAKE 1 TABLET BY MOUTH EVERY DAY IN THE MORNING 30 tablet 11 10/09/19 25 Active triamcinolone (Kenalog) 0.1 % ointmentIndicati ons:Hand eczema APPLY TOPICALLY TO THE AFFECTED AREA(S) TWICE DAILY DIRECTED 30 g 11 10/09/19 25 Active ammonium lactate (Amlactin) 12 % creamIndications :Alopecia areata APPLY TOPICALLY TO AFFECTED AREA(S) EVERY DAY NEEDED FOR DRY SKIN 385 g 1 10/25/19 25 Active Proctozone-HC 2.5 % rectal creamIndications :Hemorrhoids, unspecified hemorrhoid type INSERT RECTALLY TWICE DAILY 30 g 3 11/10/19 25 Active docusate sodium (Colace) 100 MG capsuleIndicatio ns:Hemorrhoids, unspecified hemorrhoid type Take 1 capsule (100 mg) by mouth 2 times daily. 60 capsule 2 11/24/19 25 025 Active Multiple Vitamin (multivitamin) tabletIndication s:Weight loss Take 1 tablet by mouth Once per day. 30 tablet 2 11/24/19 25 Active hydrocortisone (Anusol-HC) 2.5 % rectal creamIndications :Hemorrhoids, unspecified hemorrhoid type Insert into the rectum 2 times daily. 28 g 3 08/10/20 24 025 Discontinued zoster vaccine-recombin ant adjuvanted (Shingrix) 50 MCG/0.5ML vaccineIndicatio ns:Primary hypertension Inject 0.5 mL (50 mcg) into the muscle 1 (one) time for 1 dose. 0.5 mL 11/24/19 25 025 Active Problems Problem Noted Date Diagnosed Date Weight loss 11/23/2024 Assessment & Plan (11/23/2024 10:44 AM EDT): I will add multivitamin supplements I advised to avoid spicy food and try more fiber Other constipation 08/10/2024 Assessment & Plan (08/15/2024 [...] repeat her ultrasound again by 10/19/2024 at [facility]. Assessment & Plan (08/15/2024 2:01 PM EST): Continue to follow with endocrinology Vitamin D deficiency 04/05/2024 Overview (05/02/2024): Last Assessment & Plan: The patient was prescribed ergocalciferol 50,000 units weekly by her primary care physician. Colon cancer screening 11/01/2023 Alopecia areata 09/23/2023 Assessment & Plan (11/01/2023 12:05 PM EST): Do not miss dermatology appointment Primary hypertension 09/23/2023 Assessment & Plan (11/23/2024 10:44 AM EDT): I advised: - Aerobic exercise to reduce BP. Initial [...] consulting health care provider Assessment & Plan (11/01/2023 12:05 PM EST): [...] at home Enlarged thyroid 09/23/2023 Hemorrhoids 09/23/2023 Assessment & Plan (11/23/2024 10:43 AM EDT): I advised to drink more water and add more fiber to her diet I will prescribe for patient Colace twice a day Follow-up with a specialist Peptic ulcer 09/23/2023 Encounters Date Type Department Care Team Description 11/23/2024 9:30 AM EDT Office Visit [facility] [address] [place] [address] Lalita Owens MD Primary hypertension (Primary Dx); Hemorrhoids, unspecified hemorrhoid type; Weight loss 11/23/2024 Travel 11/09/2024 Refill [facility] [address] [place] [address] Lalita Owens MD Hemorrhoids, unspecified hemorrhoid type 10/25/2024 Refill [facility] [address] [place] [address] Lalita Owens MD Alopecia areata 10/23/2024 Orders Only GENERIC EXTERNAL DATA DEPARTMENT Provider, Generic External Data 10/11/2024 Orders Only GENERIC EXTERNAL DATA DEPARTMENT Provider, Generic External Data 10/09/2024 Refill [facility] [address] [place] [address] Lalita Owens MD Peptic ulcer; Primary hypertension; Hand eczema 10/02/2024 1:00 PM EST Nutrition [facility] DIABETES/NUTRITION [address] [place] [address] Primary hypertension; Body mass index (BMI) 23.0-23.9, adult 10/02/2024 Travel 09/06/2024 Orders Only [facility] External Provider, [facility] from Last 3 Months Immunizations Name Administration [...] Date Recorded Patient Health Questionnaire-9 Score 7 11/23/2024 Patient Health Questionnaire-9 Score 7 11/23/2024 Last PHQ-9: Questionnaire Data Not on file 0 11/23/2024 Housing Stability Answer Date Recorded What is your housing situation today? I have roel kirby 11/23/[address] you li ve. Do you have problems with any of the following? None of the above 11/23/2024 Food Insecurity Answer Date Recorded Within the past 12 months, y ou worried that your food would run out before you got money to buy more: Never True 11/23/2024 Within the past 12 months,th e food you bought just didn't last and you didn't have enough money to get more: Never True Transportation Answer Date Recorded In the past 12 months, has l ack of transportation kept you from medical appts, meetings, work or from getting things needed for daily living? No 11/23/2024 Utilities Answer Date Recorded In the past 12 months, has t he electric, gas, oil or water company threatened to shut off services in your home? No 11/23/2024 Depression Answer Date Recorded Patient Health Questionnaire-2 Score 2 11/23/2024 Internet Access Answer Date Recorded Internet Access Q1 No 11/23/2024 Internet Access Q2 Not on file 11/23/2024 Comments Unknown Sex and Gender Information Value Date Recorded Sex Assigned at Female 08/04/2023 10:55 AM EST Legal Sex Female 10:53 AM EST Gender Identity Female 08/04/2023 10:55 AM EST Sexual Orientation Straight 08/04/2023 10 :55 AM EST Last Filed Vital Signs Vital Sign Reading Time Taken Comments Blood Pressure 128/70 11/23/2024 9:44 AM EDT Pulse 66 11/23/2024 9:44 AM EDT Temperature 36.1 ??C (97 ??F) 11/23/2024 9:44 AM EDT Respiratory Rate 18 11/23/2024 9:44 AM EDT Oxygen Saturation 94% 11/23/2024 9:44 AM EDT Inhaled Oxygen Concentration - - Weight 51.2 kg (112 lb 12.8 oz) 11/23/2024 9:44 AM EDT Height 149.9 cm (4' 11 ) 11/23/2024 9:44 AM EDT Body Mass Index 22.78 11/23/2024 9:44 AM EDT Plan of Treatment Upcoming Encounters Date Type Department Care Team (Late st Contact Info) Description 02/21/2025 11:00 AM EDT Office Visit [facility] [address] [place] [address] Lalita Owens MD [address] [place] [address] Health Maintenance Due Date Last Done Comments CT Colonography 1950 Colonoscopy 1950 FIT 1950 FOBT 1950 Sigmoidoscopy 1950 Hepatitis C Screening 1967 DTaP/Tdap/Td Vaccines (1 - Tdap) 1968 Zoster Vaccines (1 of 2) 1999 COVID-19 Vaccine (2 - 2023-2 5 season) 2024 08/04/2023 Alcohol/Substance Use Screening 11/23/2025 11/23/2024 Depression Screening 11/23/2025 11/23/2024, 11/23/2024 SDOH Screening 11/23/2025 11/23/2024 Tobacco Screening 11/23/2025 11/23/2024 Colorectal Cancer Screening 11/28/2026 FIT DNA/Cologuard 11/28/2026 [...] Procedure Name Priority Date/Time Associated Diagnosis Comments BI MAMMOGRAM SCREENING TOMOSYNTHESIS BILATERAL Routine 10/29/2024 1:00 PM EST Encounter for screening mammogram for malignant neoplasm of breast COMPREHENSIVE METABOLIC PANEL Routine 10/23/2024 1:25 PM EST CBC WITH AUTO DIFFERENTIAL Routine 10/23/2024 1:25 PM EST GROSS AND MICROSCOPIC LEVEL 3 Routine 10/11/2024 11:55 AM EST BD DEXA AXIAL Routine 09/06/2024 10:30 AM EST LAB COLOGUARD?? COLON CANCER SCREEN Routine 11/29/2023 12:01 AM EDT Colon cancer screening LIPID PANEL, STANDARD Routine 11/04/2023 11:30 AM EST Primary hypertension from Last 3 Months or Most Recently Relevant to Health Maintenance Results * BI Mammogram Screening Tomosynthesis Bilateral (10/29/2024 1:00 PM EST) Anatomical Region Laterality Modality Breast Bilateral Mammography 10/29/2024 1:00 PM EST Narrative 10/30/2024 6:07 PM EST ? [facility] ? [address] ?[place] [address] ? Mammography Report ? Signed ? Patient: Nathaly Erazo ? MR#: [id number] ? : 1950 ?Acct:[id number] ? Age/Sex: 74 / F ?ADM Date: 03/03/25 ? Loc: HO.MAMMO ? Attending Dr: Lalita Rodriguez MD ? Ordering Physician: Lalita Owens MD ?Results: 0Incomplete: Needs Additional Imaging ?? Evaluation ? Date of Service: 10/29/24 ?Follow Up: Additional Imagi ?? ng ? Procedure(s): MM tomosynthesis screening BI ?? Accession Number(s): [id number] ? cc: Lalita Owens MD ? EXAMINATION: ?? MM SCREENING DIGITAL BREAST TOMOSYNTHESIS, BILATERAL ? CLINICAL INFORMATION: ? Screening. Asymptomatic. ? COMPARISON: ?? Mammography: Baseline. ? TECHNIQUE: ?? Digital breast mammography with tomosynthesis is performed in both the ?? craniocaudal and mediolateral oblique views along with computer-aided ?? detection (CAD). ? FINDINGS: ?? The breasts are heterogeneously dense, which may obscure small masses ?? (ACR BI-RADS breast composition Category c). ?? Left: ?? No suspicious calcifications masses or other abnormal findings. ? Right: ?? Focal asymmetry lower inner breast middle depth. ?? Focal asymmetry upper outer breast posterior depth. ?? No suspicious calcifications or other abnormal findings. ? MM/MM tomosynthesis screening BI ?? IMPRESSION: ?? Additional imaging is recommended ? ASSESSMENT: ? BI-RADS BI-RADS 0 - Incomplete: Needs additional Imaging. ? RECOMMENDATION: ?? 1. Additional views of the right breast. ?? 2. Targeted ultrasound if warranted after review of the additional ?? views. ?? 3. Radiology department staff will contact the patient for additional ?? imaging. ? Additional Imaging required ? This examination should not preclude the clinical evaluation of a ?? suspicious palpable abnormality. ? This patient's information was entered into a reminder system with a ?? target due date for their next mammogram. ? Electronically signed by: ??Radhika Aden DO ??10/30/2024 06:04 PM EST ? Dictated By: ?Radhika Aden DO ? Signed By: ?<Electronically signed by Radhika Aden, DO in OV> ? 10/30/24 1804 ? DD/ 1300 ? TD/TT: 10/29/24 1320 ? Radiation Technician: ? Procedure Note Donotjefryinterpreter, Image - 10/30/2024 [facility] [address] [place], [place] [address] Mammography Report Signed Patient: Nathaly Erazo MR#: [id number] : 9Acct:[id number] Age/Sex: 74 / FADM Date: 10/29/24 Loc: HO.MAMMO Attending Dr: Lalita Rodriguez MD Ordering Physician: Lalita Owens MD Results: 0Incomplete: Needs Additional Imaging Evaluation Date of Service: 10/29/24Follow Up: Additional Imagi ng Procedure(s): MM tomosynthesis screening BI Accession Number(s): [id number] cc: Lalita Owens MD EXAMINATION: MM SCREENING DIGITAL BREAST TOMOSYNTHESIS, BILATERAL CLINICAL INFORMATION: Screening. Asymptomatic. COMPARISON: Mammography: Baseline. TECHNIQUE: Digital breast mammography with tomosynthesis is performed in both the craniocaudal and mediolateral oblique views along with computer-aided detection (CAD). FINDINGS: The breasts are heterogeneously dense, which may obscure small masses (ACR BI-RADS breast composition Category c). Left: No suspicious calcifications masses or other abnormal findings. Right: Focal asymmetry lower inner breast middle depth. Focal asymmetry upper outer breast posterior depth. No suspicious calcifications or other abnormal findings. MM/MM tomosynthesis screening BI IMPRESSION: Additional imaging is recommended ASSESSMENT: BI-RADS BI-RADS 0 - Incomplete: Needs additional Imaging. RECOMMENDATION: 1. Additional views of the right breast. 2. Targeted ultrasound if warranted after review of the additional views. 3. Radiology department staff will contact the patient for additional imaging. Additional Imaging required This examination should not preclude the clinical evaluation of a suspicious palpable abnormality. This patient's information was entered into a reminder system with a target due date for their next mammogram. Electronically signed by: Radhika Aden DO 10/30/2024 06:04 PM EST Dictated By: Radhika Aden DO Signed By: <Electronically signed by Radhika Aden DO in OV> 10/30/24 1804 DD/ 1300 TD/TT: 10/29/24 1320 Radiation Technician: us Lalita Rodriguez MD IMG BI PROCEDURES Fin al Result * (ABNORMAL) CBC auto differential (10/23/2024 1:25 PM EST) White Blood Count 4.6(L) 4.8 - 10.8 X10*3/uL [facility] Red Blood Count 4.11(L) 4.20 - 5.50 X10*6/uL [facility] Hemoglobin 12.6 12.0 - 16.0 g/dl [facility] Hematocrit 40.0 37.0 - 47.0 % [facility] Mean Corpuscular Volume 97.3 80.0 - 98.0 fL [facility] Mean Corpuscular Hemoglobin 30.7 27.0 - 33.0 pg [facility] Mean Corpuscular HGB Conc 31.5 31.0 - 35.0 g/dl [facility] Red Cell Distribution Width 11.9 11.0 - 16.0 % [facility] Platelet Count 350 160 - 400 X10*3/uL [facility] Mean Platelet Volume 10.2 9.4 - 12.3 fL [facility] Neutrophils Percent Auto 41.0(L) 45 - 73 % [facility] Imm Gran Pct Auto 0.2 0.0 - 0.4 % [facility] Lymphocytes Percent Auto 44.6(H) 20 - 40 % [facility] Monocytes Percent Auto 10.8 2 - 11 % [facility] Eosinophils Percent Auto 2.8 0 - 4 % [facility] Basophils Percent Auto 0.6 0 - 2 % [facility] NRBC Pct Auto 0.0 0.0 - 0.2 /100WBC [facility] Neutrophils Absolute Auto 1.9(L) 2.0 - 8.3 x10*3/uL [facility] Imm Gran Abs Auto 0.01 0.00 - 0.03 X10*3/uL [facility] Lymphocytes Absolute Auto 2.1 1.2 - 4.9 X10*3/uL [facility] Monocytes Absolute Auto 0.5 0.1 - 1.2 X10*3/uL [facility] Eosinophils Absolute Auto 0.1 0.0 - 0.4 X10*3/uL [facility] Basophils Absolute Auto 0.0 0.0 - 0.2 X10*3/uL [facility] NRBC Abs Auto 0.000 0.0 - 0.012 X10*3/uL [facility] 10/23/2024 1:25 PM EST 10/23/2024 1:31 PM EST us Generic External Data Provider LAB BLOOD ORDERAB LES Final Result [facility] [address] [place] [phone] * (ABNORMAL) Comprehensive Metabolic Panel (10/23/2024 1:25 PM EST) Sodium 141 135 - 145 mmol/L [facility] Potassium 4.7 3.3 - 5.1 mmol/L [facility] Chloride 104 96 - 108 mmol/L [facility] Carbon Dioxide 28 22 - 29 mmol/L [facility] Anion Gap 14 12 - 20 [facility] Urea Nitrogen (BUN) 15 9 - 16 mg/dL [facility] Creatinine, Serum 0.79 0.5 - 1.4 mg/dL [facility] Creatinine Clr Calc Pharmacy 45.4 [facility] Comment:Provided height and weight: 149.86 cm,52.163 kg.eGFR (calculated from the MDRD study equation) and eCrCl(calculated from the Cockcroft-Gault equation) are based ondifferent parameters and may not yield comparable results.If eCrCl result is absurd, please check patient'sheight/weight. Estimated Glomerular Filt Rate >60 [facility] Comment:Chronic Kidney Disea se: Estimated GFR < 60 mL/min/[id number] Kidney Disease: Estimated GFR < 15 mL/min/1.73m2 Glucose 102 60 - 115 mg/dL [facility] Calcium 10.2 8.4 - 10.2 mg/dL [facility] Bilirubin, Total 0.5 0.0 - 1.0 mg/dL [facility] Aspartate Amino Transferase 30 5 - 31 U/L [facility] Alanine Aminotransferase 37(H) 0 - 31 U/L [facility] Total Protein 7.9 6.5 - 8.0 g/dL [facility] Albumin Level 4.2 3.5 - 5.0 g/dL [facility] Alkaline Phosphatase 174(H) 39 - 117 U/L [facility] 10/23/2024 1:25 PM EST 10/23/2024 1:31 PM EST us Generic External Data Provider LAB BLOOD ORDERAB LES Final Result [facility] [address] [place] [phone] * Gross and Microscopic Level 3 (10/11/2024 11:55 AM EST) 10/11/2024 11:5 5 AM EST 10/11/2024 12:42 PM EST Narrative [facility] - 10/12/2024 4:30 PM EST ----- ------- Name: Nathaly Montero ?Age/Sex: 74/F ? : 1950 Unit#: [id number] ?? Attend Dr: Yovany Randolph MD ?Re10/11/24 ?Status: DEP SDC ? Location: HO.SSS ?Disch: ? ----- ------- SPEC : [id number] ?RECD: 10/11/24 ? STATUS: ??SOUT ? REQ NUM: [id number] ? CLARK: 10/11/24- ? SUBM DR: Yovany Randolph MD ? [...] with a few dilated, blood-filled vessels. ??A care support representative section from each of the 2 smaller specimens are submitted in cassette A1, 2 pieces. ??Snubber sections from the larger portion of tissue are submitted in cassette A2, 2 pieces. smc Copies To: ?? Lalita Owens MD ?? [facility] ?? [address] ?? [place] [address] ?? [phone] ?? Yovany Randolph MD ?? [facility] ?? [address] ?? [place] [address] ?? [phone] ?? [email or web address] ? CONTINUED ON NEXT PAGE ----- ------- Name: Nathaly Montero ?Age/Sex: 74/F ? : 1950 Unit#: [id number] ?? Attend Dr: Yovany Randolph MD ?Re10/11/24 ?Status: DEP SDC ? Location: HO.SSS ?Disch: ? ----- ------- SPEC : [id number] ?RECD: 10/11/24-1241 ? STATUS: ??SOUT ? REQ NUM: [id number] ? CLARK: 10/11/24-3736 ? SUBM DR: Yovany Randolph MD ? ENTERED: ??10/11/24 ?SP TYPE: Surgical ? OTHR DR: Lalita Owens MD ? ORDERED: ??Gross Micro L3 ? ----- ------- Signed (signature on file) Jerrell [place] MD 10/12/241629 ? ----- ------- ? END OF REPORT ? us Generic External Data Provider LAB CYTOLOGY AURA HINDS Final Result Performing Organization Address [facility]/State/ZIP Co de Phone Number [facility] [address] [place] [phone] [phone] * BD DEXA Axial (09/06/2024 10:30 AM EST) Anatomical Region Laterality Modality Body Radiographic Mima ging 09/06/2024 10:3 0 AM EST Narrative 09/10/2024 9:42 AM EST ? [facility] ? [address] ?[place] [address] ? Mammography Report ? Signed ? Patient: Winston,Nathaly ?MR#: [id number] ?? [id number] ? : 1950 ?Acct:[id number] ? Age/Sex: 74 / F ?ADM Date: 01/09/25 ? Loc: HO.MAMMO ? Attending : Wild Ventura DO, MD ? Ordering Physician: WILD VENTURA DO ?Results: ? Date of Service: 09/06/24 ?Follow Up: ? Procedure(s): XR DEXA axial skeleton ?? Accession Number(s): [id number] ? cc: Lalita Owens MD; WILD VENTURA DO ? EXAMINATION: ??Dual-Energy X-ray Absorptiometry - Bone Density Study ? 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 TECHNIQUE: [employer] Dual energy absorptiometry (DEXA) ?? of the [...] DD/ 1030 ? TD/TT: 09/06/24 1058 ? Radiation Technician: ? Procedure Note Donotjefryinterpreter, Image - 09/10/2024 [facility] [address] [place] [address] Mammography Report Signed Patient: Supa Montero#: [id number] : 9Acct:[id number] Age/Sex: 74 / FADM Date: 09/06/24 Loc: PEPE Attending Dr: Wild Ventura DO, MD Ordering Physician: WILD VENTURAults: Date of Service: 09/06/24Follow Up: Procedure(s): XR DEXA axial skeleton Accession Number(s): [id number] cc: Lalita Owens MD; WILD VENTURA DO EXAMINATION: Dual-Energy X-ray Absorptiometry - Bone Density Study HISTORY: Estrogen deficiency TECHNIQUE: [employer] Dual energy absorptiometry (DEXA) of the lumbar [...] 09/10/24 0939 DD/ 1030 TD/TT: 09/06/24 1058 Radiation Technician: [facility] External Provider IMG DXA PROCEDURES Edited Result - Final * Cologuard?? colon cancer screening (11/29/2023 12:01 AM EDT) Cologuard Result Negative Negative 12/04/19 6:00 PM EDT [employer] (CLIA #:[id number]) Comment: NEGATIVE TEST RESULT. A negative Cologuard [...] cancer. ??Following a negative Cologuard result, the [place] [employer] and U.S. Multi-Society Task Force screening guidelines recommend a Cologuard re-screening interval of 3 years. References: [place] [employer] Guideline for Colorectal Cancer Screening: https://www.cancer.org/cancer/yyhnr-lmlmar-efskfl/rkornrqjh-bpmaxlkdz-lzoryfc/ac s-rec ommendations.html.; Bryson DK, Aliza CR, Nicolas HardingK, Colorectal Cancer Screening: Recommendations for Physicians and Patients from the U.S. Multi-Society Task Force on Colorectal Cancer Screening , Am J Gastroenterology 2017; 112:8602-9320. TEST DESCRIPTION: Composite algorithmic analysis of stool [...] (Gisela Monroe al, N Engl J Med 2014;370(14):5226-7497.) Cologuard may produce a false negative or false positive result (no colorectal cancer or precancerous polyp present at colonoscopy follow up). A negative Cologuard test result does not guarantee the absence of CRC or advanced adenoma (pre-cancer). The current Cologuard screening interval is every 3 years. ([place] [employer] and U.S. Multi-Society Task Force). Cologuard performance data in a 10,000 patient pivotal study using colonoscopy as the reference method can be accessed at the following location: www.[employer]/results. Additional description of the Cologuard test process, warnings and precautions can be found at www.colHerborium Grouprd.com. Stool specimen (specimen) Rectal contents / Unknown 11/29/2023 12:01 AM EDT 12/01/2023 10:59 AM EDT Lalita Rodriguez MD LAB MOLECULAR DIAGNOS TICS ORDERABLES Final Result [employer] (CLIA #:[id number]) [place] [address], * (ABNORMAL) Lipid Panel, Standard (11/04/2023 11:30 AM EST) Triglycerides 111 <150 mg/dL [facility] Comment:Desirable Triglyceri de: less than 150 mg/dLBorderline High Triglyceride 150-199 mg/dLHigh Triglyceride: 200-499 mg/dLVery High Triglyceride: greater than or equal to 5OO mg/dL Cholesterol 183 <200 mg/dL [facility] Comment:Desirable Cholestero l: less than 200 mg/dLBorderline High Cholesterol: 200-239 mg/dLHigh Cholesterol: greater than 239 mg/dL LDL Cholesterol Calculated 103(H) <100 mg/dL [facility] Comment:Desirable LDL: less than 100 mg/dLNear Optimal/Above Optimal LDL: 110- 129 mg/dLBorderline High LDL: 130-159 mg/dLHigh LDL: 160-189 mg/dLVery High LDL: greater than or equal to 190 mg/dL HDL Cholesterol 58 >40 mg/dL [facility] Comment:Desirable HDL: great er than 40 mg/dL Note: This HDL assay may give artificially low results in patients with liver disease. Blood Venous blood specimen / Unknown 11/04/2023 11:30 AM EST 11/04/2023 12:56 PM EST Lalita Rodriguez MD LAB BLOOD ORDERABLES Final Result [facility] [address] [place] [phone] [phone] from Last 3 Months or Most Recently Relevant to Health Maintenance Insurance [facility] Care Teams Manager Math Relationship Specialty Start Date End Date Lalita Owens MD [address] [place] [phone] PCP - General Internal Medicine 09/23/23
== END 2024-12-03 09:00 | disposition home or self-care (01) ==
LOC: HO.MAMMO 08:59
PROVIDERS: PCP Internal Medicine; Visit Provider Internal Medicine
DX: N64.89 Other specified disorders of breast (principal)
CPT/HCPCS: 76642; 77061; 77065

== ENCOUNTER → 2024-12-03 09:30 | Outpatient (BNV) | payer OTHER, SELFPAY | PROVIDERS: PCP Internal Medicine; Visit Provider Internal Medicine | DX: R92.8 Other abnormal and inconclusive findings on diagnostic imaging of breast (principal) | CPT/HCPCS: 76642; 77065; G0279 ==

== ENCOUNTER 2025-06-06 11:33 | Outpatient (REF) | payer OTHER, SELFPAY ==
--- NOTE | ~2025-06-06 | MM_ITS ---
EXAMINATION: MM DIAGNOSTIC DIGITAL BREAST TOMOSYNTHESIS, RIGHT CLINICAL INFORMATION: 6 month follow-up for asymmetries in the right breast without prior sonographic correlates. COMPARISON: Mammography: Priors on PACS. TECHNIQUE: Digital breast tomosynthesis is performed in both the craniocaudal and mediolateral oblique views along with computer-aided detection (CAD). Synthesized 2D images are generated from the tomosynthesis. FINDINGS: The breasts are heterogeneously dense, which may obscure small masses. Previously seen focal asymmetries in the central inner breast and upper outer breast middle and posterior depth are not significantly changed from priors. No prior's sonographic correlates were seen. No suspicious calcifications or other abnormal findings. MM/MM tomosynthesis diagnostic RT IMPRESSION: Right breast focal asymmetries upper outer breast central inner breast not significantly changed from prior. No prior sonographic correlate was seen. Recommend 6 month follow up with the patient will be due for bilateral mammography. ASSESSMENT: BI-RADS Category 3: Probably benign RECOMMENDATION: 6 Month F/U Results were provided to the patient at time of visit by the technologist. This patient's information was entered into a reminder system with a target due date for their next mammogram. Electronically signed by: Radhika Aden DO 06/06/2025 12:30 PM EDT
== END 2025-06-06 11:34 | disposition home or self-care (01) ==
LOC: HO.MAMMO 11:33
PROVIDERS: PCP Internal Medicine; Visit Provider Internal Medicine
DX: R92.2 Inconclusive mammogram (principal)
CPT/HCPCS: 77061; 77065

== ENCOUNTER → 2025-06-06 13:00 | Outpatient (BNV) | payer OTHER, SELFPAY | PROVIDERS: PCP Internal Medicine; Visit Provider Internal Medicine | DX: R92.8 Other abnormal and inconclusive findings on diagnostic imaging of breast (principal) | CPT/HCPCS: 77065; G0279 ==